=== PATIENT | female | born 2000 | race Caucasian/White ===

== ENCOUNTER 2020-05-05 19:15 | Emergency (ER) | payer MEDICAID, SELFPAY ==
[2020-05-05 19:16] VITALS: BP 114/78; PULSE 92; RESP 16; TEMP 36.4; O2SAT 100; BMI 18.8
[2020-05-05 20:12] LABS: Glucose Urine UA NEG (NEG); Leukocyte Esterase Urine NEG (NEG); Nitrite Urine NEG (NEG); PH 5.5 (5.0-8.0); Specific Gravity - Urine >= 1.030 (1.005-1.025); Urine Blood NEG (NEG); Urine Ketones 5 MG/DL (NEG); Urine Protein NEG (NEG-TRACE)
[2020-05-05 20:15] LABS: Appearance Urine CLEAR; Color Urine YELLOW
[2020-05-05 20:16] LABS: UPreg QC Valid YES; Urine Pregnancy NEGATIVE (NEGATIVE)
[2020-05-05 20:44] LABS: Amphetamine Screen Urine Not Detected (Not Detect); Barbiturates, Urine Not Detected (Not Detect); Benzodiazepines Screen Urine Not Detected (Not Detect); Cannabinoid Screen Urine POSITIVE (Not Detect); Cocaine Screen Urine Not Detected (Not Detect); Opiate Screen Urine Not Detected (Not Detect); Phencyclidine Screen Urine Not Detected (Not Detect)
--- NOTE | 2020-05-05 21:19 | ED_ITS ---
HPI - Abdominal Pain General Chief Complaint: Abdominal Pain Stated Complaint: ABD PAIN Time Seen by Provider: 05/05/20 21:12 Source: patient Mode of arrival: ambulatory Limitations: no limitations History of Present Illness HPI narrative: patient with no significant past medical history no prior GI evaluation been complaining of upper abdominal epigastric pain for last 1 month patient smokes lot of marijuana but she is doing this for long time and does feel nauseous and vomit sometimes pain does not radiate to any place patient never been evaluated for this pain before MD elicited complaint: abdominal pain Pertinent past history: none Onset (ago): week(s) (4) Pain Consistency: intermittent Location: epigastric Severity: moderate Quality: burning Radiation: none Migration to: no migration Exacerbating factors: eating Relieving factors: nothing Associated symptoms: nausea and vomiting Related Data Previous Rx's Medication Instructions Recorded omeprazole magnesium [Prilosec OTC] 20 mg PO DAILY #30 tab 05/05/20 ondansetron 4 mg PO Q6-8H PRN #7 tab 05/05/20 Allergies Allergy/AdvReac Type Severity Reaction Status Date / Time Penicillins [PENICILLINS] Allergy Unknown UNKNOWN Verified 05/05/20 19:21 Review of Systems Review of Systems REVIEW OF SYSTEMS: Pertinent positives and negatives are stated above in the history. GEN: no fevers, chills, fatigue HEENT: no nasal congestion, sore throat, ear pain NEURO: no headache, dizziness, focal weakness PULM: no cough, shortness of breath CV: no chest pain, palpitations, LE edema ABD: no vomiting, diarrhea : no dysuria, urgency, frequency SKIN: no rash ROS otherwise negative x 10 Physical Exam Vital Signs: Vital Signs: Last Vital Signs Temp 98 F 05/05/20 22:27 Pulse 68 05/05/20 22:27 Resp 16 05/05/20 22:27 BP 115/74 05/05/20 22:27 Pulse Ox 98 05/05/20 22:27 Body Mass Index 18.8 Appearance: Alert. Oriented X3. No acute distress. Eyes: Pupils equal, round and reactive to light. ENT: Pharynx normal. Neck: Normal inspection. Neck supple. CVS: Normal heart rate and rhythm. Pulses normal. Respiratory: No respiratory distress. Breath sounds normal. Abdomen: Soft and mild tenderness epigastric area no right upper quadrant tenderness no guarding no mass bowel sounds are present. Skin: Skin warm and dry. Normal skin color. Normal skin turgor. Extremities: No lower extremity edema. Good range of movement Neuro: Oriented X 3. No motor deficit. No sensory deficit. MDM - Abdominal Pain MDM Narrative Medical decision making narrative: patient feeling better now after IV fluids IV Pepcid and Maalox able to take p.o. fluids workup is negative for any significant pathology, LFTs are normal lipase normal. discharge the patient home Differential Diagnosis Differential diagnosis: Likely gastritis Medical Records Attestation: I reviewed the patient's medical records. Lab Data Attestation: I reviewed the patient's lab results. Result diagrams: 05/05/20 22:09 05/05/20 22:09 Labs: Lab Results 05/05/20 05/05/20 05/05/20 Range/Units 19:44 19:44 22:09 WBC 11.8 H (4.8-10.8) X10*3/uL RBC 4.71 (4.20-5.50) X10*6/uL Hgb 14.7 (12.0-16.0) g/dl Hct 43.6 (37-47) % MCV 92.6 (80-98) fL MCH 31.2 (27.0-33.0) pg MCHC 33.7 (31.0-35.0) g/dl RDW 11.8 (11.0-16.0) % Plt Count 249 (160-400) X10*3/uL MPV 10.6 (9.4-12.3) fL Immature Gran % (Auto) 0.3 (0.0-0.4) % Neut % (Auto) 67.8 (45-73) % Lymph % (Auto) 24.2 (20-40) % [place] % (Auto) 7.0 (2-11) % Eos % (Auto) 0.5 (0-4) % Baso % (Auto) 0.2 (0-2) % Lymph # (Auto) 2.9 (1.2-4.9) X10*3/uL [place] # (Auto) 0.8 (0.1-1.2) X10*3/uL Eos # (Auto) 0.1 (0.0-0.4) X10*3/uL Baso # (Auto) 0.0 (0.0-0.2) X10*3/uL Abs Immat Gran (auto) 0.04 H (0.00-0.03) X10*3/uL Absolute Neuts (auto) 8.0 (2.0-8.3) X10*3/uL Absolute Nucleated RBC 0.000 (0.0-0.012) X10*3/uL Nucleated RBC % (auto) 0.0 (0.0-0.2) /100WBC Sodium (135-145) mmol/L Potassium (3.3-5.1) mmol/l Chloride (96-108) mmol/L Carbon Dioxide (22-29) mmol/L Anion Gap (12-20) BUN (9-16) mg/dL Creatinine (0.5-1.4) mg/dL Estim Creat Clear Calc Estimated GFR Random Glucose (60-115) mg/dL Calcium (8.4-10.2) mg/dL Total Bilirubin (0.0-1.0) mg/dL Direct Bilirubin (0.0-0.5) mg/dL AST (5-31) U/L ALT (0-31) U/L Alkaline Phosphatase (39-117) U/L Total Protein (6.5-8.0) g/dL Albumin (3.5-5.0) g/dL Lipase (8-78) U/L Urine Color YELLOW Urine Appearance CLEAR Urine pH 5.5 (5.0-8.0) Ur Specific [place] >= 1.030 H (1.005-1.025) Urine Protein NEG (NEG-TRACE) MG/DL Urine Glucose (UA) NEG (NEG) MG/DL Urine Ketones 5 (NEG) MG/DL Urine Blood NEG (NEG) Urine Nitrite NEG (NEG) Ur Leukocyte Esterase NEG (NEG) Urine Test NEGATIVE (NEGATIVE) Urine Opiates Screen Not Detected (Not Detect) Ur Barbiturates Screen Not Detected (Not Detect) Ur Phencyclidine Scrn Not Detected (Not Detect) Ur Amphetamines Screen Not Detected (Not Detect) U Benzodiazepines Scrn Not Detected (Not Detect) Urine Cocaine Screen Not Detected (Not Detect) U Marijuana (THC) Screen POSITIVE H (Not Detect) 05/05/20 Range/Units 22:09 WBC (4.8-10.8) X10*3/uL RBC (4.20-5.50) X10*6/uL Hgb (12.0-16.0) g/dl Hct (37-47) % MCV (80-98) fL MCH (27.0-33.0) pg MCHC (31.0-35.0) g/dl RDW (11.0-16.0) % Plt Count (160-400) X10*3/uL MPV (9.4-12.3) fL Immature Gran % (Auto) (0.0-0.4) % Neut % (Auto) (45-73) % Lymph % (Auto) (20-40) % [place] % (Auto) (2-11) % Eos % (Auto) (0-4) % Baso % (Auto) (0-2) % Lymph # (Auto) (1.2-4.9) X10*3/uL [place] # (Auto) (0.1-1.2) X10*3/uL Eos # (Auto) (0.0-0.4) X10*3/uL Baso # (Auto) (0.0-0.2) X10*3/uL Abs Immat Gran (auto) (0.00-0.03) X10*3/uL Absolute Neuts (auto) (2.0-8.3) X10*3/uL Absolute Nucleated RBC (0.0-0.012) X10*3/uL Nucleated RBC % (auto) (0.0-0.2) /100WBC Sodium 140 (135-145) mmol/L Potassium 4.1 (3.3-5.1) mmol/l Chloride 103 (96-108) mmol/L Carbon Dioxide 25 (22-29) mmol/L Anion Gap 16 (12-20) BUN 12 (9-16) mg/dL Creatinine 0.75 (0.5-1.4) mg/dL Estim Creat Clear Calc 102.8 Estimated GFR > 60 Random Glucose 77 (60-115) mg/dL Calcium 9.0 (8.4-10.2) mg/dL Total Bilirubin 0.7 (0.0-1.0) mg/dL Direct Bilirubin 0.3 (0.0-0.5) mg/dL AST 16 (5-31) U/L ALT 9 (0-31) U/L Alkaline Phosphatase 62 (39-117) U/L Total Protein 7.1 (6.5-8.0) g/dL Albumin 4.5 (3.5-5.0) g/dL Lipase 25 (8-78) U/L Urine Color Urine Appearance Urine pH (5.0-8.0) Ur Specific [place] (1.005-1.025) Urine Protein (NEG-TRACE) MG/DL Urine Glucose (UA) (NEG) MG/DL Urine Ketones (NEG) MG/DL Urine Blood (NEG) Urine Nitrite (NEG) Ur Leukocyte Esterase (NEG) Urine Test (NEGATIVE) Urine Opiates Screen (Not Detect) Ur Barbiturates Screen (Not Detect) Ur Phencyclidine Scrn (Not Detect) Ur Amphetamines Screen (Not Detect) U Benzodiazepines Scrn (Not Detect) Urine Cocaine Screen (Not Detect) U Marijuana (THC) Screen (Not Detect) Discharge Plan Discharge Clinical Impression: Gastritis Qualifiers: Gastritis type: unspecified gastritis Chronicity: acute Gastritis bleeding: without bleeding Qualified Code(s): K29.00 - Acute gastritis without bleeding Patient Disposition: Home, Self-Care Instructions: Gastritis (ED) Additional Instructions: stop smoking marijuana. Take medication as prescribed for nausea and stomach inflammation Prescriptions: New omeprazole magnesium [Prilosec OTC] 20 mg tablet,delayed release (DR/EC) 20 mg PO DAILY Qty: 30 RF: 0 ondansetron 4 mg tablet,disintegrating 4 mg PO Q6-8H PRN (Reason: nausea and vomiting) Qty: 7 RF: 0 PMFSH Past Medical History Medical History No known health problems Social History Social History Alcohol intake: never Smoking Status: Never smoker Use of substances other than those prescribed or required for medical reasons: No Advance Directives: No Advance Directives Information Provided: Yes
[2020-05-05] MEDS: Famotidine/PF 20 MG/2 ML VIAL IVPUSH (22:11)
[2020-05-05] MEDS: Magnesium Hydrox/Alum Hydrox 30 ML ORAL.SUSP PO (22:11)
[2020-05-05] MEDS: 0.9 % Sodium Chloride 1,000 ML 999 ML IVCONT (22:11)
[2020-05-05] MEDS: ondansetron HCL 4 MG/2 ML VIAL IVPUSH (22:11)
[2020-05-05 22:16] LABS: Basophils Percent Auto 0.2 % (0-2); Eosinophils Absolute Auto 0.1 X10*3/uL (0.0-0.4); Eosinophils Percent Auto 0.5 % (0-4); Hematocrit 43.6 % (37-47); Hemoglobin 14.7 g/dl (12.0-16.0); Imm Gran Abs Auto 0.04 X10*3/uL (0.00-0.03); Imm Gran Pct Auto 0.3 % (0.0-0.4); Lymphocytes Absolute Auto 2.9 X10*3/uL (1.2-4.9); Lymphocytes Percent Auto 24.2 % (20-40); MANUAL DIFF FLAG NO; Mean Corpuscular HGB Conc 33.7 g/dl (31.0-35.0); Mean Corpuscular Hemoglobin 31.2 pg (27.0-33.0); Mean Corpuscular Volume 92.6 fL (80-98); Mean Platelet Volume 10.6 fL (9.4-12.3); Monocytes Absolute Auto 0.8 X10*3/uL (0.1-1.2); Neutrophils Percent Auto 67.8 % (45-73); Platelet Count 249 X10*3/uL (160-400); Red Blood Count 4.71 X10*6/uL (4.20-5.50); Red Cell Distribution Width 11.8 % (11.0-16.0); White Blood Count 11.8 X10*3/uL (4.8-10.8)
[2020-05-05 22:27] VITALS: BP 115/74; PULSE 68; RESP 16; TEMP 36.6; O2SAT 98
[2020-05-05 22:48] LABS: Alanine Aminotransferase 9 U/L (0-31); Albumin Level 4.5 g/dL (3.5-5.0); Alkaline Phosphatase 62 U/L (39-117); Anion Gap 16 (12-20); Aspartate Amino Transferase 16 U/L (5-31); Bilirubin Direct 0.3 mg/dL (0.0-0.5); Bilirubin Total 0.7 mg/dL (0.0-1.0); Blood Urea Nitrogen 12 mg/dL (9-16); Carbon Dioxide 25 mmol/L (22-29); Chloride 103 mmol/L (96-108); Creatinine Clr Calc Pharmacy 102.8; Estimated Glomerular Filt Rate > 60; Glucose Random 77 mg/dL (60-115); Lipase 25 U/L (8-78); Potassium 4.1 mmol/l (3.3-5.1); Sodium 140 mmol/L (135-145); Total Protein 7.1 g/dL (6.5-8.0)
== END 2020-05-05 23:47 | disposition home or self-care (01) ==
PROVIDERS: Emergency Provider Internal Medicine
DX: K29.00 Acute gastritis without bleeding (principal); Z79.899 Other long term (current) drug therapy
CPT/HCPCS: 36415; 80048; 80076; 80307; 81003; 81025; 83690; 85025; 96361; 96374; 96375; 99284; J2405

== ENCOUNTER 2021-08-01 12:10 | Emergency (ER) | payer MEDICAID, SELFPAY ==
[2021-08-01 14:35] VITALS: BP 157/58; PULSE 62; RESP 16; TEMP 36.1; O2SAT 100; BMI 20.3
[2021-08-01 14:54] LABS: MANUAL DIFF FLAG NO
[2021-08-01 14:58] LABS: Basophils Percent Auto 0.2 % (0-2); Eosinophils Absolute Auto 0.1 X10*3/uL (0.0-0.4); Eosinophils Percent Auto 0.6 % (0-4); Hematocrit 43.7 % (37.0-47.0); Hemoglobin 14.8 g/dl (12.0-16.0); Imm Gran Abs Auto 0.03 X10*3/uL (0.00-0.03); Imm Gran Pct Auto 0.2 % (0.0-0.4); Lymphocytes Absolute Auto 2.6 X10*3/uL (1.2-4.9); Lymphocytes Percent Auto 20.4 % (20-40); Mean Corpuscular HGB Conc 33.9 g/dl (31.0-35.0); Mean Corpuscular Hemoglobin 31.2 pg (27.0-33.0); Mean Corpuscular Volume 92.2 fL (80.0-98.0); Mean Platelet Volume 10.6 fL (9.4-12.3); Monocytes Percent Auto 7.8 % (2-11); Neutrophils Percent Auto 70.8 % (45-73); Platelet Count 249 X10*3/uL (160-400); Red Blood Count 4.74 X10*6/uL (4.20-5.50); Red Cell Distribution Width 11.9 % (11.0-16.0); White Blood Count 12.7 X10*3/uL (4.8-10.8)
[2021-08-01 15:02] LABS: Appearance Urine CLOUDY; Glucose Urine UA NEG (NEG); Leukocyte Esterase Urine TRACE (NEG); Nitrite Urine POS (NEG); PH 6.5 (5.0-8.0); Specific Gravity - Urine 1.025 (1.005-1.025); UACC Culture Trigger YES; Urine Blood 3+ (NEG); Urine Ketones 5 MG/DL (NEG); Urine Protein 2+ MG/DL (NEG-TRACE)
[2021-08-01 15:03] LABS: Color Urine AMBER
[2021-08-01 15:04] LABS: UPreg QC Valid YES; Urine Pregnancy NEGATIVE (NEGATIVE)
[2021-08-01 15:07] LABS: Anion Gap 11 (12-20); Blood Urea Nitrogen 9 mg/dL (9-16); Calcium 9.3 mg/dL (8.4-10.2); Carbon Dioxide 29 mmol/L (22-29); Chloride 105 mmol/L (96-108); Estimated Glomerular Filt Rate > 60; Glucose Random 91 mg/dL (60-115); Potassium 4.3 mmol/L (3.3-5.1); Sodium 141 mmol/L (135-145)
[2021-08-01 15:09] LABS: Bacteria Urine TRACE /LPF; Mucus Urine 2+ /LPF; RBC Urine TNTC /HPF (0); Squamous Epithelial Cell Urine 1+ /LPF
[2021-08-01 16:08] VITALS: BP 112/73; PULSE 52; RESP 16; TEMP 37; O2SAT 99
--- NOTE | 2021-08-01 16:29 | ED.ABDPAIN ---
HPI - Abdominal Pain General Chief Complaint: Abdominal Pain Stated Complaint: nausea/cramps/dizziness Time Seen by Provider: 08/01/21 14:54 Source: patient History of Present Illness HPI narrative: Patient with lower abdominal pain which is concomitant with her. . She states she has had similar episodes in the past but typically not as bad. Today with severe made her nauseous. Improving now spontaneously. She also has a history of gastritis and occasionally gets epigastric pain is difficulty eating. 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 She takes no medications. She does smoke marijuana daily. Menses Starting today. No dysuria No flank pain Related Data Previous Rx's Medication Instructions Recorded omeprazole magnesium 20 mg 20 mg PO DAILY #30 tab 05/05/20 tablet,delayed release (Prilosec OTC) ondansetron 4 mg disintegrating 4 mg PO Q6-8H PRN #7 tab 05/05/20 tablet omeprazole 20 mg capsule,delayed 20 mg PO DAILY #30 cap 08/01/21 release Allergies Allergy/AdvReac Type Severity Reaction Status Date / Time Penicillins [PENICILLINS] Allergy Unknown UNKNOWN Verified 05/05/20 19:21 Review of Systems Comments: No fevers or chills Comments: No chest pain Comments: No cough or dyspnea Comments: Lower abdominal pain mostly. Some epigastric discomfort which is chronic Comments: No leg pain Comments: No rash Comments: No weakness PMFSH Past Medical History Medical History No known health problems Social History Social History Alcohol intake: never Advance Directives: No Advance Directives Information Provided: No Patient : No Physical Exam ED Vital Signs: Vital Signs - 24 hr 08/01/21 14:35 08/01/21 16:08 Temperature 97 F 98.6 F Pulse Rate 62 52 Respiratory Rate 16 16 Blood Pressure 157/58 H 112/73 Pulse Oximetry 100 99 BMI result Body Mass Index 20.3 Const Other: Awake alert in no acute distress Resp Other: Clear and equal bilaterally without wheezes rales or rhonchi Cardio Other: Regular rate and rhythm without murmurs rubs or gallops GI Other: Soft. Nondistended. Normal bowel sounds. Tenderness across the low abdomen. Mostly midline. No lateralizing lower abdominal tenderness. Mild epigastric tenderness as well. No guarding rebound Course Course Course Narrative: Patient with low abdominal pain. Dysmenorrhea most likely diagnosis. There are no lateralizing sounds and I do not think she needed ultrasound. Will have her follow-up with OBGYN. She also likely has gastritis. Exacerbated by frequent ibuprofen use for her menstrual cramps. Will start on a PPI and have her follow-up with Gastroenterology. MDM - Abdominal Pain Lab Data Result diagrams: 08/01/21 14:44 08/01/21 14:44 Labs: Lab Results 08/01/21 08/01/21 08/01/21 Range/Units 14:44 14:44 14:49 WBC 12.7 H (4.8-10.8) X10*3/uL RBC 4.74 (4.20-5.50) X10*6/uL Hgb 14.8 (12.0-16.0) g/dl Hct 43.7 (37.0-47.0) % MCV 92.2 (80.0-98.0) fL MCH 31.2 (27.0-33.0) pg MCHC 33.9 (31.0-35.0) g/dl RDW 11.9 (11.0-16.0) % Plt Count 249 (160-400) X10*3/uL MPV 10.6 (9.4-12.3) fL Immature Gran % (Auto) 0.2 (0.0-0.4) % Neut % (Auto) 70.8 (45-73) % Lymph % (Auto) 20.4 (20-40) % [place] % (Auto) 7.8 (2-11) % Eos % (Auto) 0.6 (0-4) % Baso % (Auto) 0.2 (0-2) % Lymph # (Auto) 2.6 (1.2-4.9) X10*3/uL [place] # (Auto) 1.0 (0.1-1.2) X10*3/uL Eos # (Auto) 0.1 (0.0-0.4) X10*3/uL Baso # (Auto) 0.0 (0.0-0.2) X10*3/uL Abs Immat Gran (auto) 0.03 (0.00-0.03) X10*3/uL Absolute Neuts (auto) 9.0 H (2.0-8.3) x10*3/uL Absolute Nucleated RBC 0.000 (0.0-0.012) X10*3/uL Nucleated RBC % (auto) 0.0 (0.0-0.2) /100WBC Sodium 141 (135-145) mmol/L Potassium 4.3 (3.3-5.1) mmol/L Chloride 105 (96-108) mmol/L Carbon Dioxide 29 (22-29) mmol/L Anion Gap 11 L (12-20) BUN 9 (9-16) mg/dL Creatinine 0.76 (0.5-1.4) mg/dL Estim Creat Clear Calc 109.0 Estimated GFR > 60 Random Glucose 91 (60-115) mg/dL Calcium 9.3 (8.4-10.2) mg/dL Urine Color GAYE Urine Appearance CLOUDY Urine pH 6.5 (5.0-8.0) Ur Specific [place] 1.025 (1.005-1.025) Urine Protein 2+ H (NEG-TRACE) MG/DL Urine Glucose (UA) NEG (NEG) MG/DL Urine Ketones 5 (NEG) MG/DL Urine Blood 3+ H (NEG) Urine Nitrite POS H (NEG) Ur Leukocyte Esterase TRACE H (NEG) Urine RBC TNTC H (0) /HPF Urine WBC 5-9 H (0-4) /HPF Ur Squamous Epith Cells 1+ /LPF Urine Bacteria TRACE /LPF Urine Mucus 2+ /LPF Urine Test (NEGATIVE) 08/01/21 Range/Units 14:49 WBC (4.8-10.8) X10*3/uL RBC (4.20-5.50) X10*6/uL Hgb (12.0-16.0) g/dl Hct (37.0-47.0) % MCV (80.0-98.0) fL MCH (27.0-33.0) pg MCHC (31.0-35.0) g/dl RDW (11.0-16.0) % Plt Count (160-400) X10*3/uL MPV (9.4-12.3) fL Immature Gran % (Auto) (0.0-0.4) % Neut % (Auto) (45-73) % Lymph % (Auto) (20-40) % [place] % (Auto) (2-11) % Eos % (Auto) (0-4) % Baso % (Auto) (0-2) % Lymph # (Auto) (1.2-4.9) X10*3/uL [place] # (Auto) (0.1-1.2) X10*3/uL Eos # (Auto) (0.0-0.4) X10*3/uL Baso # (Auto) (0.0-0.2) X10*3/uL Abs Immat Gran (auto) (0.00-0.03) X10*3/uL Absolute Neuts (auto) (2.0-8.3) x10*3/uL Absolute Nucleated RBC (0.0-0.012) X10*3/uL Nucleated RBC % (auto) (0.0-0.2) /100WBC Sodium (135-145) mmol/L Potassium (3.3-5.1) mmol/L Chloride (96-108) mmol/L Carbon Dioxide (22-29) mmol/L Anion Gap (12-20) BUN (9-16) mg/dL Creatinine (0.5-1.4) mg/dL Estim Creat Clear Calc Estimated GFR Random Glucose (60-115) mg/dL Calcium (8.4-10.2) mg/dL Urine Color Urine Appearance Urine pH (5.0-8.0) Ur Specific [place] (1.005-1.025) Urine Protein (NEG-TRACE) MG/DL Urine Glucose (UA) (NEG) MG/DL Urine Ketones (NEG) MG/DL Urine Blood (NEG) Urine Nitrite (NEG) Ur Leukocyte Esterase (NEG) Urine RBC (0) /HPF Urine WBC (0-4) /HPF Ur Squamous Epith Cells /LPF Urine Bacteria /LPF Urine Mucus /LPF Urine Test NEGATIVE (NEGATIVE) Discharge Plan Discharge Clinical Impression: Gastritis, Dysmenorrhea Patient Disposition: Home, Self-Care Instructions: Dysmenorrhea (ED), Gastritis (ED) Prescriptions: New omeprazole 20 mg capsule,delayed release(DR/EC) 20 mg PO DAILY Qty: 30 0RF No Action omeprazole magnesium [Prilosec OTC] 20 mg tablet,delayed release (DR/EC) 20 mg PO DAILY Qty: 30 0RF ondansetron 4 mg tablet,disintegrating 4 mg PO Q6-8H PRN (Reason: nausea and vomiting) Qty: 7 0RF Referrals: Pancho Berumen [Physician] - 2 days Mikel Oates MD [Physician] - 2 days
== END 2021-08-01 16:57 | disposition home or self-care (01) ==
PROVIDERS: Emergency Provider Emergency Medicine
DX: K29.70 Gastritis, unspecified, without bleeding (principal); N94.6 Dysmenorrhea, unspecified; F12.90 Cannabis use, unspecified, uncomplicated
CPT/HCPCS: 36415; 80048; 81001; 81003; 81025; 85025; 87086; 99283

== ENCOUNTER 2021-11-18 20:55 | Emergency (ER) | payer MEDICAID, SELFPAY ==
--- NOTE | ~2021-11-18 | CT_ITS ---
EXAMINATION: CT ABDOMEN AND PELVIS WITHOUT CONTRAST CLINICAL INFORMATION: Abdominal pain radiating to both flanks. COMPARISON: None TECHNIQUE: Multidetector volumetric imaging was performed from the superior aspect of the liver through the pubic symphysis. Sagittal and coronal reformatted images were obtained on the technologist's workstation. This CT examination was performed using dose optimization techniques as appropriate, variously including the following: *Automated exposure control. *Adjustment of mA and/or kV according to patient size (this includes techniques or standardized protocols for targeted exams where dose is matched to indication/reason for exam; i.e. extremities or head). *Use of iterative reconstruction technique. DLP: 391 mGy-cm FINDINGS: LUNG BASES: No focal consolidation or pleural effusion. LIVER, GALLBLADDER, AND BILIARY TREE: Limited noncontrast evaluation of the liver without significant abnormality. Normal appearance of the gallbladder. No biliary ductal dilatation. PANCREAS: Limited noncontrast examination without significant abnormality. SPLEEN: Limited noncontrast examination within normal limits. ADRENAL GLANDS: No adrenal lesion. KIDNEYS AND URETERS: No hydronephrosis or nephrolithiasis. No perinephric fat stranding. BLADDER: Underdistended limiting its evaluation. GASTROINTESTINAL TRACT: The stomach and the small bowel are nondilated. Normal appendix (7:21). No significant pericolonic inflammatory changes to suspect acute diverticulitis or colitis. No bowel obstruction. ABDOMINAL WALL: No significant hernia is appreciated. LYMPH NODES: Evaluation of lymph nodes is limited in the absence of intravenous contrast and paucity of intra-abdominal fat. Accounting for these limitations, no bulky lymphadenopathy is identified. Prominent sub-6 mm short axis right lower quadrant mesenteric lymph nodes are indeterminate. VASCULAR: Unremarkable. PELVIC VISCERA: The uterus and adnexa are not entirely well delineated in the absence of intravenous contrast. No pelvic masses are seen. There is a small amount of free fluid layering in the cul-de-sac, which is likely physiologic. OSSEOUS STRUCTURES: No acute or aggressive-appearing osseous abnormalities. CT/CT abdomen pelvis wo con IMPRESSION: No significant abnormality to explain the patient's symptoms. No evidence of nephrolithiasis or hydronephrosis.
[2021-11-18 21:27] VITALS: BP 118/64; PULSE 73; RESP 18; TEMP 37.1; O2SAT 100; BMI 21.0
[2021-11-18 21:42] LABS: MANUAL DIFF FLAG NO
[2021-11-18 21:46] LABS: Basophils Percent Auto 0.1 % (0-2); Eosinophils Absolute Auto 0.1 X10*3/uL (0.0-0.4); Eosinophils Percent Auto 0.9 % (0-4); Hematocrit 40.2 % (37.0-47.0); Hemoglobin 13.6 g/dl (12.0-16.0); Imm Gran Abs Auto 0.04 X10*3/uL (0.00-0.03); Imm Gran Pct Auto 0.4 % (0.0-0.4); Lymphocytes Absolute Auto 2.5 X10*3/uL (1.2-4.9); Mean Corpuscular HGB Conc 33.8 g/dl (31.0-35.0); Mean Corpuscular Hemoglobin 30.5 pg (27.0-33.0); Mean Corpuscular Volume 90.1 fL (80.0-98.0); Mean Platelet Volume 10.6 fL (9.4-12.3); Monocytes Absolute Auto 0.9 X10*3/uL (0.1-1.2); Monocytes Percent Auto 8.9 % (2-11); Neutrophils Absolute Auto 6.8 x10*3/uL (2.0-8.3); Neutrophils Percent Auto 65.7 % (45-73); Platelet Count 216 X10*3/uL (160-400); Red Blood Count 4.46 X10*6/uL (4.20-5.50); Red Cell Distribution Width 12.5 % (11.0-16.0); White Blood Count 10.3 X10*3/uL (4.8-10.8)
[2021-11-18 22:02] LABS: Appearance Urine HAZY; Color Urine YELLOW; Glucose Urine UA NEG (NEG); Leukocyte Esterase Urine NEG (NEG); Nitrite Urine NEG (NEG); Urine Blood NEG (NEG); Urine Ketones NEG (NEG); Urine Protein NEG (NEG-TRACE)
[2021-11-18 22:03] LABS: COVID-19 Test Negative (Negative)
[2021-11-18 22:04] LABS: UPreg QC Valid YES; Urine Pregnancy NEGATIVE (NEGATIVE)
--- NOTE | 2021-11-18 22:04 | ED_ITS ---
HPI - Abdominal Pain General Chief Complaint: Abdominal Pain Stated Complaint: stomach pain Time Seen by Provider: 11/18/21 22:03 Source: patient Mode of arrival: ambulatory Limitations: no limitations History of Present Illness HPI narrative: 21-year-old history presents the emergency department complaints of epigastric pain x3 days worsening. Patient tells me that her epigastric pain is severe, intermittent, she feels like there is a ball in her stomach , pain sometimes radiates to bilateral flanks.. He tells me it is also associated with nausea and vomiting, she reports 1 episode of vomiting today. She tells me that she has had no appetite therefore she has not been eating much. She denies any prev ious abdominal surgeries. No sick contacts. Patient tells me she does not think she is however she is not on control. She denies weakness, headache, fevers, chills, constipation, changes in urination, vaginal bleeding, chest pain, shortness of breath. MD elicited complaint: abdominal pain Pertinent past history: none Onset (ago): day(s) (3) Pain Consistency: constant Location: epigastric Severity: severe Quality: sharp and burning Radiation: none Migration to: no migration Exacerbating factors: nothing Relieving factors: nothing Associated symptoms: nausea and vomiting Related Data Previous Rx's Medication Instructions Recorded omeprazole magnesium 20 mg 20 mg PO DAILY #30 tabs 05/05/20 tablet,delayed release (Prilosec OTC) ondansetron 4 mg disintegrating 4 mg PO Q6-8H PRN nausea and 05/05/20 tablet vomiting #7 tabs omeprazole 20 mg capsule,delayed 20 mg PO DAILY #30 caps 08/01/21 release omeprazole 10 mg capsule,delayed 10 mg PO DAILY #14 caps 11/19/21 release ondansetron 4 mg disintegrating 4 mg PO ONCE PRN nausea and 11/19/21 tablet vomiting #10 tabs Allergies Allergy/AdvReac Type Severity Reaction Status Date / Time Penicillins [PENICILLINS] Allergy Unknown UNKNOWN Verified 05/05/20 19:21 Review of Systems Review of Systems Constitutional : No Weight loss, No Fever, No Chills, No Fatigue, No Malaise ENT/Mouth : No sore throat, No Rhinorrhea Eyes: No Eye Pain, No Swelling, No Redness Cardiovascular : No Chest Pain, No SOB, No Dyspnea on Exertion, No Orthopnea, No Edema, No Palpitations Respiratory : No Cough, No Sputum, No Wheezing Gastrointestinal : + Nausea, + Vomiting, No Diarrhea, No Constipation, + abdominal Pain, No Hematochezia, No Melena Genitourinary : No Dysuria, No Urinary Frequency, No Hematuria, Musculoskeletal : No joint pain, No Myalgias, No Joint Swelling Skin : No Skin Lesions, No rash Neuro : No Weakness, No Numbness, No Dizziness, No Headache Psych : No Anxiety/Panic, No Depression All other systems reviewed and are negative Yes all other systems are reviewed and are negative [facility] Past Medical History Attestation statement: The following information was validated with the patient. Source: old records reviewed and nursing notes reviewed Medical History No known health problems Social History Social History Alcohol intake: never Advance Directives: No Advance Directives Information Provided: Yes Physical Exam ED Vital Signs: Vital Signs - 24 hr 11/18/21 21:27 11/18/21 22:45 11/18/21 23:19 Temperature 98.7 F Pulse Rate 73 73 63 Respiratory Rate 18 16 16 Blood Pressure 118/64 92/61 108/61 Pulse Oximetry 100 99 98 Oxygen Delivery Method Room Air Room Air Room Air BMI result Body Mass Index 21.0 VSS Appearance: Alert.? Oriented X3.? No acute distress.? Head: Normocephalic, atraumatic, no step-offs or deformities Eyes: Pupils equal, round and reactive to light.? ENT: Pharynx normal.? Neck: Normal inspection.? Neck supple.? CVS: Normal heart rate and rhythm.? Pulses normal.? Respiratory: No respiratory distress.? Breath sounds normal.? Abdomen: Soft and + tender to epigastric region.? Skin: Skin warm and dry.? Normal skin color.? Normal skin turgor.? Extremities: No lower extremity edema.? No calf ttp. 5/5 strength to bilateral upper and lower extremities Back: No midline tenderness, no C-spine tenderness, full range of motion, no CVA tenderness bilaterally Neuro: Oriented X 3.? No motor deficit.? No sensory deficit. CN 2-12 intact Course Course Course Narrative: This patient was evaluated during a time of global shortage of iodinated contrast media. Based on guidance from the [employer], best practices, and local institutional approaches an alternative path for evaluating and managing the patient may have been employed in order to provide optimal care during this shortage. The current situation has been discussed with the patient. Reevaluation(s) Reevaluation #1: CBC wnl, chemistry with no acute Electrolyte abnormalities requiring intervention. Lipase normal unlikely pancreatitis. Urine clean. negative.Covid negative. Imaging pending Time: 22:30 Reevaluation #2: CT of the abdomen and pelvis and no significant abnormality to explain the patient's symptoms. No evidence of nephrolithiasis or hydronephrosis. Appendix appears normal. No signs of diverticulitis or colitis. No signs of bowel obstruction. At this time likely diagnosis is gastritis. Patient reports improvement after GI cocktail. Patient will be discharged home with omeprazole. At this time I advised patient to return with new or worsening symptoms, educated her on worrisome signs and symptoms and when to return. Advised her to follow-up with GI if pain does not improve. Comfortable discharge home Time: 00:02 MDM - Abdominal Pain MDM Narrative Medical decision making narrative: 220 21 yo f presents w/ epigastric pain w intermittent radiation to b/l flanks, nausea, vomiting, anorexia X3 days PE w/ epigastric tenderness. RRR/ Lung clear. Neuro non focal. Vitals stabe Unlikley pylonephritis, appendicitis, cholecysitits, pancreatitis. Likley gastritis. Plan- labs, urine, ct abd and pelvis Medical Records Attestation: I reviewed the patient's medical records. Lab Data Attestation: I reviewed the patient's lab results. Result diagrams: 11/18/21 21:32 11/18/21 21:32 Labs: Lab Results 11/18/21 11/18/21 11/18/21 Range/Units 21:32 21:32 21:32 WBC 10.3 (4.8-10.8) X10*3/uL RBC 4.46 (4.20-5.50) X10*6/uL Hgb 13.6 (12.0-16.0) g/dl Hct 40.2 (37.0-47.0) % MCV 90.1 (80.0-98.0) fL MCH 30.5 (27.0-33.0) pg MCHC 33.8 (31.0-35.0) g/dl RDW 12.5 (11.0-16.0) % Plt Count 216 (160-400) X10*3/uL MPV 10.6 (9.4-12.3) fL Immature Gran % (Auto) 0.4 (0.0-0.4) % Neut % (Auto) 65.7 (45-73) % Lymph % (Auto) 24.0 (20-40) % [place] % (Auto) 8.9 (2-11) % Eos % (Auto) 0.9 (0-4) % Baso % (Auto) 0.1 (0-2) % Lymph # (Auto) 2.5 (1.2-4.9) X10*3/uL [place] # (Auto) 0.9 (0.1-1.2) X10*3/uL Eos # (Auto) 0.1 (0.0-0.4) X10*3/uL Baso # (Auto) 0.0 (0.0-0.2) X10*3/uL Abs Immat Gran (auto) 0.04 H (0.00-0.03) X10*3/uL Absolute Neuts (auto) 6.8 (2.0-8.3) x10*3/uL Absolute Nucleated RBC 0.000 (0.0-0.012) X10*3/uL Nucleated RBC % (auto) 0.0 (0.0-0.2) /100WBC Sodium 137 (135-145) mmol/L Potassium 3.8 (3.3-5.1) mmol/L Chloride 104 (96-108) mmol/L Carbon Dioxide 27 (22-29) mmol/L Anion Gap 10 L (12-20) BUN 9 (9-16) mg/dL Creatinine 0.85 (0.5-1.4) mg/dL Estim Creat Clear Calc 100.0 Estimated GFR > 60 Random Glucose 65 (60-115) mg/dL Calcium 9.2 (8.4-10.2) mg/dL Total Bilirubin 0.5 (0.0-1.0) mg/dL Direct Bilirubin 0.2 (0.0-0.5) mg/dL AST 14 (5-31) U/L ALT 9 (0-31) U/L Alkaline Phosphatase 54 (39-117) U/L Total Protein 6.9 (6.5-8.0) g/dL Albumin 4.2 (3.5-5.0) g/dL Lipase 49 (8-78) U/L Urine Color Urine Appearance Urine pH (5.0-8.0) Ur Specific [place] (1.005-1.025) Urine Protein (NEG-TRACE) MG/DL Urine Glucose (UA) (NEG) MG/DL Urine Ketones (NEG) MG/DL Urine Blood (NEG) Urine Nitrite (NEG) Ur Leukocyte Esterase (NEG) Urine Test (NEGATIVE) COVID-19 (MAUREEN) Negative (Negative) COVID-19 Clin Com See Note 11/18/21 11/18/21 Range/Units 21:55 21:55 WBC (4.8-10.8) X10*3/uL RBC (4.20-5.50) X10*6/uL Hgb (12.0-16.0) g/dl Hct (37.0-47.0) % MCV (80.0-98.0) fL MCH (27.0-33.0) pg MCHC (31.0-35.0) g/dl RDW (11.0-16.0) % Plt Count (160-400) X10*3/uL MPV (9.4-12.3) fL Immature Gran % (Auto) (0.0-0.4) % Neut % (Auto) (45-73) % Lymph % (Auto) (20-40) % [place] % (Auto) (2-11) % Eos % (Auto) (0-4) % Baso % (Auto) (0-2) % Lymph # (Auto) (1.2-4.9) X10*3/uL [place] # (Auto) (0.1-1.2) X10*3/uL Eos # (Auto) (0.0-0.4) X10*3/uL Baso # (Auto) (0.0-0.2) X10*3/uL Abs Immat Gran (auto) (0.00-0.03) X10*3/uL Absolute Neuts (auto) (2.0-8.3) x10*3/uL Absolute Nucleated RBC (0.0-0.012) X10*3/uL Nucleated RBC % (auto) (0.0-0.2) /100WBC Sodium (135-145) mmol/L Potassium (3.3-5.1) mmol/L Chloride (96-108) mmol/L Carbon Dioxide (22-29) mmol/L Anion Gap (12-20) BUN (9-16) mg/dL Creatinine (0.5-1.4) mg/dL Estim Creat Clear Calc Estimated GFR Random Glucose (60-115) mg/dL Calcium (8.4-10.2) mg/dL Total Bilirubin (0.0-1.0) mg/dL Direct Bilirubin (0.0-0.5) mg/dL AST (5-31) U/L ALT (0-31) U/L Alkaline Phosphatase (39-117) U/L Total Protein (6.5-8.0) g/dL Albumin (3.5-5.0) g/dL Lipase (8-78) U/L Urine Color YELLOW Urine Appearance HAZY Urine pH 6.0 (5.0-8.0) Ur Specific [place] 1.010 (1.005-1.025) Urine Protein NEG (NEG-TRACE) MG/DL Urine Glucose (UA) NEG (NEG) MG/DL Urine Ketones NEG (NEG) MG/DL Urine Blood NEG (NEG) Urine Nitrite NEG (NEG) Ur Leukocyte Esterase NEG (NEG) Urine Test NEGATIVE (NEGATIVE) COVID-19 (MAUREEN) (Negative) COVID-19 Clin Com Critical Care Time Critical Care Time Critical Care Time: No Discharge Plan Discharge Clinical Impression: Abdominal pain, Nausea & vomiting Patient Disposition: Home, Self-Care Instructions: Diet for Stomach Ulcers and Gastritis (ED), Acute Nausea and Vomiting (ED), Abdominal Pain (ED) Additional Instructions: Take your medications as prescribed. If you were prescribed antibiotics today, it is important that you take your medication to their entirety, do not skip any doses, do not finish them early. Follow-up with your primary care provider this week. Return to the emergency department with new or worsening symptoms. Such as fevers, chills, chest pain, shortness of breath, nausea, vomiting, dizziness, headache, vision changes, lethargy Please follow a bland diet. In case of emergency call 911 Your labs were reassuring, your urine was within normal limits, urine negative and your CT scan showed no acute findings. Please be advised that you were seen during a time of global shortage of iodinated contrast media. This means an alternative approach to your diagnosis and treatment may have been employed in order to provide optimal care during the shortage. If you have any worsening symptoms, please go to the nearest emergency department or call 911 immediately Prescriptions: New omeprazole 10 mg capsule,delayed release(DR/EC) 10 mg PO DAILY Qty: 14 0RF ondansetron 4 mg tablet,disintegrating 4 mg PO ONCE PRN (Reason: nausea and vomiting) Qty: 10 0RF No Action omeprazole magnesium [Prilosec OTC] 20 mg tablet,delayed release (DR/EC) 20 mg PO DAILY Qty: 30 0RF ondansetron 4 mg tablet,disintegrating 4 mg PO Q6-8H PRN (Reason: nausea and vomiting) Qty: 7 0RF omeprazole 20 mg capsule,delayed release(DR/EC) 20 mg PO DAILY Qty: 30 0RF Referrals: Physician,Miryam Power [Primary Care Provider] - 2 days Josué Espinosa [Physician] - 2 weeks Stand Alone Forms: Work/School Release
[2021-11-18 22:22] LABS: Alanine Aminotransferase 9 U/L (0-31); Albumin Level 4.2 g/dL (3.5-5.0); Alkaline Phosphatase 54 U/L (39-117); Anion Gap 10 (12-20); Aspartate Amino Transferase 14 U/L (5-31); Bilirubin Direct 0.2 mg/dL (0.0-0.5); Bilirubin Total 0.5 mg/dL (0.0-1.0); Blood Urea Nitrogen 9 mg/dL (9-16); Calcium 9.2 mg/dL (8.4-10.2); Carbon Dioxide 27 mmol/L (22-29); Chloride 104 mmol/L (96-108); Estimated Glomerular Filt Rate > 60; Glucose Random 65 mg/dL (60-115); Potassium 3.8 mmol/L (3.3-5.1); Sodium 137 mmol/L (135-145); Total Protein 6.9 g/dL (6.5-8.0)
[2021-11-18 22:26] LABS: Lipase 49 U/L (8-78)
[2021-11-18 22:45] VITALS: BP 92/61; PULSE 73; RESP 16; O2SAT 99
[2021-11-18] MEDS: Magnesium Hydrox/Alum Hydrox 30 ML ORAL.SUSP PO (22:47)
[2021-11-18] MEDS: Ondansetron ODT 4 MG TAB.RAPDIS TRANSLINGU (22:47)
[2021-11-18] MEDS: PHENobarb/Hyoscy/Atropine/Scop 10 ML ELIXIR PO (22:47)
[2021-11-18 23:19] VITALS: BP 108/61; PULSE 63; RESP 16; O2SAT 98
== END 2021-11-19 00:15 | disposition home or self-care (01) ==
PROVIDERS: Physician Assistant; Emergency Provider Internal Medicine
DX: R10.13 Epigastric pain (principal); R11.2 Nausea with vomiting, unspecified; Z20.822 Contact with and (suspected) exposure to COVID-19; Z79.899 Other long term (current) drug therapy
CPT/HCPCS: 36415; 74176; 80053; 81003; 81025; 82248; 83690; 85025; 87635; 99284

== ENCOUNTER 2022-11-25 17:27 | Emergency (ER) | payer MEDICAID, SELFPAY ==
--- NOTE | ~2022-11-25 | CT_ITS ---
EXAMINATION: CT HEAD WITHOUT CONTRAST CLINICAL INFORMATION: Fall with head strike. Laceration and headache. COMPARISON: None available. TECHNIQUE: Contiguous axial imaging was performed from the skull base to vertex without intravenous administration of contrast. This CT examination was performed using dose optimization techniques as appropriate, variously including the following: *Automated exposure control *Adjustment of mA and/or kV according to patient size (this includes techniques or standardized protocols for targeted exams where dose is matched to indication/reason for exam; i.e. extremities or head) *Use of iterative reconstruction technique DLP: 606 mGy-cm FINDINGS: There is no acute intra-axial, extra-axial bleed, masses or midline shift. There is no acute infarction evolution. There is no edema. Reveles to white matter differentiation is maintained normal. The lateral ventricles are symmetrical in size and configuration without enlargement. Bone windows reveal no calvarial abnormality. Bilateral paranasal sinuses and mastoid air cells are well-aerated. No scalp soft tissue abnormality seen. CT/CT head/brain wo IV con IMPRESSION: No acute intracranial process seen.
[2022-11-25 17:53] VITALS: BP 114/81; PULSE 86; O2SAT 98; BMI 20.4
--- NOTE | 2022-11-25 17:53 | ED.HEATRA ---
HPI - Head Injury General Chief complaint: Head Injury Stated complaint: fainted/head injury Time Seen by Provider: 11/25/22 19:33 Source: patient, RN notes reviewed and old records reviewed Mode of arrival: ambulatory Limitations: no limitations History of Present Illness HPI Narrative: 22-year-old female presents for evaluation of a reported syncopal episode. Patient reports that she did not eat or drink anything all day. She reports that after driving home she got out of her car She reports feeling dizzy and passing out striking the back of her head on the concrete Complains of a mild headache She is unsure of how long she was unconscious as this was an unwitnessed event Denies any chest pain or shortness of breath Patient also bit the inside of her lip and has a small laceration to the inside of her lip she has a laceration to the back of her head Unknown last tetanus Related Data Previous Rx's Medication Instructions Recorded omeprazole magnesium 20 mg 20 mg PO DAILY #30 tabs 05/05/20 tablet,delayed release (Prilosec OTC) ondansetron 4 mg disintegrating 4 mg PO Q6-8H PRN nausea and 05/05/20 tablet vomiting #7 tabs omeprazole 20 mg capsule,delayed 20 mg PO DAILY #30 caps 08/01/21 release omeprazole 10 mg capsule,delayed 10 mg PO DAILY #14 caps 11/19/21 release ondansetron 4 mg disintegrating 4 mg PO ONCE PRN nausea and 11/19/21 tablet vomiting #10 tabs Allergies Allergy/AdvReac Type Severity Reaction Status Date / Time Penicillins [PENICILLINS] Allergy Unknown UNKNOWN Verified 11/25/22 18:04 Review of Systems Constitutional: Constitutional: Reports headache(s) Eyes: Eyes: Reports blurry vision ENT: Reports headache(s) Cardiovascular: Cardiovascular: Denies chest pain, Reports syncope and Denies dyspnea Respiratory: Respiratory: Denies dyspnea Gastrointestinal: Gastrointestinal: Denies abdominal pain, Denies nausea and Denies vomiting Musculoskeletal: Musculoskeletal: Denies arthralgias Integumentary/Breasts: Skin/Breast: Reports wounds Neurologic: Reports syncope and Reports headache(s) [facility] Past Medical History Medical History No known health problems Social History Social History Alcohol intake: never Advance Directives: No Advance Directives Information Provided: No Physical Exam Vital Signs: Vital Signs: Last Vital Signs Pulse 86 11/25/22 17:53 BP 114/81 11/25/22 17:53 Pulse Ox 98 11/25/22 17:53 O2 Del Method Room Air 11/25/22 17:53 BMI result Body Mass Index 20.4 Const: General: healthy appearing, comfortable, no acute distress, alert and awake Nutritional Appearance: well nourished Orientation/consciousness: patient oriented x3 HEENT: Other: 1 cm partial-thickness laceration to the buccal mucosa of the inner lower lip. It is not through and through Eyes: Eyelids: Yes eyelids normal Conjunctivae: conjunctivae normal Sclerae: sclerae normal Corneas: corneas normal Pupils: Equal, round and reactive pupils present EOM: EOMs intact bilaterally Neck: Neck: Yes full ROM Resp: Effort & Inspection: normal respiratory effort, able to speak in complete sentences and not labored Skin: Other: 4 cm linear full-thickness laceration to the left occipital scalp. No active bleeding General skin exam: elasticity normal Neuro: General: patient oriented x3 Cranial nerves: Yes Equal, round and reactive pupils present and Yes Bilaterally intact EOM present Cognition (Neuro): normal cognition Course Course Course Narrative: RME - 22 yo female with history of low iron, syncope who presents to the ER for evaluation of a head injury sustained today when she fainted while walking into her friend's house. She states before she fainted she felt dizzy, hot, with blurred vision. She hit her head on the pavement. Sustained a laceration to the back of the head. Pain is >10/10. Reports history of fainting in the past. 4cm laceration to back of her head. AAO x3. Feeling dizzy with standing up. Plan: CT head, lab workup, orthostatics, EKG Medications Administered Discontinued Medications Generic Name Dose Route Start Last Admin Trade Name Freq PRN Reason Stop Dose Admin Lidocaine HCl 10 ml 11/25/22 20:02 11/25/22 20:09 Lidocaine Hcl 1 % Mpf 5 Ml Vial INFILTRATI 11/25/22 20:03 10 ml ONCE ONE Administration Medical Decision Making Medical Decision Making [facility] Narrative: This is a healthy 22-year-old female presents for evaluation after a syncopal episode. Denies history of same. She did not your drink anything today and was a hot day. Patient syncopized shortly after standing up to get out of her car. EKG is nonischemic, sinus rhythm with a sinus arrhythmia, rate of 71 beats per minute. Labs are otherwise without significant abnormalities. She does have a mild leukocytosis but no cough, shortness of breath, chest pain, no abdominal pain, nausea vomiting, no urinary symptoms. CT scan of the brain ordered to rule out traumatic injury. Patient's posterior scalp wound closed with surgical easton. She had a lip wound that was not through and through that was sutured with 5-0 Vicryl Differential Diagnosis Syncope Head laceration Lip laceration Puncture wound Arrhythmia Lab Data 11/25/22 18:15 11/25/22 18:15 Labs: Lab Results 11/25/22 11/25/22 11/25/22 Range/Units 18:15 18:15 18:15 WBC 14.5 H (4.8-10.8) X10*3/uL RBC 4.59 (4.20-5.50) X10*6/uL Hgb 14.3 (12.0-16.0) g/dl Hct 41.8 (37.0-47.0) % MCV 91.1 (80.0-98.0) fL MCH 31.2 (27.0-33.0) pg MCHC 34.2 (31.0-35.0) g/dl RDW 12.1 (11.0-16.0) % Plt Count 254 (160-400) X10*3/uL MPV 10.6 (9.4-12.3) fL Immature Gran % (Auto) 0.4 (0.0-0.4) % Neut % (Auto) 85.1 H (45-73) % Lymph % (Auto) 8.3 L (20-40) % [place] % (Auto) 5.9 (2-11) % Eos % (Auto) 0.1 (0-4) % Baso % (Auto) 0.2 (0-2) % Lymph # (Auto) 1.2 (1.2-4.9) X10*3/uL [place] # (Auto) 0.9 (0.1-1.2) X10*3/uL Eos # (Auto) 0.0 (0.0-0.4) X10*3/uL Baso # (Auto) 0.0 (0.0-0.2) X10*3/uL Abs Immat Gran (auto) 0.06 H (0.00-0.03) X10*3/uL Absolute Neuts (auto) 12.3 H (2.0-8.3) x10*3/uL Absolute Nucleated RBC 0.000 (0.0-0.012) X10*3/uL Nucleated RBC % (auto) 0.0 (0.0-0.2) /100WBC Sodium 140 (135-145) mmol/L Potassium 3.6 (3.3-5.1) mmol/L Chloride 105 (96-108) mmol/L Carbon Dioxide 26 (22-29) mmol/L Anion Gap 13 (12-20) BUN 10 (9-16) mg/dL Creatinine 0.74 (0.5-1.4) mg/dL Estim Creat Clear Calc 110.5 Estimated GFR > 60 Random Glucose 100 (60-115) mg/dL Calcium 9.3 (8.4-10.2) mg/dL Magnesium 2.2 (1.6-2.6) mg/dL Total Bilirubin 0.6 (0.0-1.0) mg/dL Direct Bilirubin 0.2 (0.0-0.5) mg/dL AST 23 (5-31) U/L ALT 16 (0-31) U/L Alkaline Phosphatase 62 (39-117) U/L Total Protein 7.2 (6.5-8.0) g/dL Albumin 4.4 (3.5-5.0) g/dL Urine Color Yellow Urine Appearance Cloudy Urine pH 5.5 (5.0-9.0) Ur Specific [place] 1.020 (1.005-1.025) Urine Protein 100 (2+) H (Neg-Trace) mg/dL Urine Glucose (UA) Negative (Negative) mg/dL Urine Ketones 15 (Negative) mg/dL Urine Blood Negative (Negative) Urine Nitrite Negative (Negative) Ur Leukocyte Esterase Negative (Negative) Urine RBC 0-2 (0-2) /HPF Urine WBC 0-5 (0-5) /HPF Ur Squamous Epith Cells 11-20 (0-2) /HPF Urine Bacteria 1+ (None Seen) Hyaline Casts 0-2 (0-2) /LPF Urine Test (NEGATIVE) 11/25/22 Range/Units 18:15 WBC (4.8-10.8) X10*3/uL RBC (4.20-5.50) X10*6/uL Hgb (12.0-16.0) g/dl Hct (37.0-47.0) % MCV (80.0-98.0) fL MCH (27.0-33.0) pg MCHC (31.0-35.0) g/dl RDW (11.0-16.0) % Plt Count (160-400) X10*3/uL MPV (9.4-12.3) fL Immature Gran % (Auto) (0.0-0.4) % Neut % (Auto) (45-73) % Lymph % (Auto) (20-40) % [place] % (Auto) (2-11) % Eos % (Auto) (0-4) % Baso % (Auto) (0-2) % Lymph # (Auto) (1.2-4.9) X10*3/uL [place] # (Auto) (0.1-1.2) X10*3/uL Eos # (Auto) (0.0-0.4) X10*3/uL Baso # (Auto) (0.0-0.2) X10*3/uL Abs Immat Gran (auto) (0.00-0.03) X10*3/uL Absolute Neuts (auto) (2.0-8.3) x10*3/uL Absolute Nucleated RBC (0.0-0.012) X10*3/uL Nucleated RBC % (auto) (0.0-0.2) /100WBC Sodium (135-145) mmol/L Potassium (3.3-5.1) mmol/L Chloride (96-108) mmol/L Carbon Dioxide (22-29) mmol/L Anion Gap (12-20) BUN (9-16) mg/dL Creatinine (0.5-1.4) mg/dL Estim Creat Clear Calc Estimated GFR Random Glucose (60-115) mg/dL Calcium (8.4-10.2) mg/dL Magnesium (1.6-2.6) mg/dL Total Bilirubin (0.0-1.0) mg/dL Direct Bilirubin (0.0-0.5) mg/dL AST (5-31) U/L ALT (0-31) U/L Alkaline Phosphatase (39-117) U/L Total Protein (6.5-8.0) g/dL Albumin (3.5-5.0) g/dL Urine Color Urine Appearance Urine pH (5.0-9.0) Ur Specific [place] (1.005-1.025) Urine Protein (Neg-Trace) mg/dL Urine Glucose (UA) (Negative) mg/dL Urine Ketones (Negative) mg/dL Urine Blood (Negative) Urine Nitrite (Negative) Ur Leukocyte Esterase (Negative) Urine RBC (0-2) /HPF Urine WBC (0-5) /HPF Ur Squamous Epith Cells (0-2) /HPF Urine Bacteria (None Seen) Hyaline Casts (0-2) /LPF Urine Test NEGATIVE (NEGATIVE) Radiology Impression Discussion of test interpretation with radiology: I have reviewed the radiologist's reading. (No acute intracranial pathology) Procedures Laceration Laceration 1: Site: scalp Side (If applicable): left Size (cm): 4 Description: linear Depth: simple, single layer Local Anesthetic: lidocaine 1% Amount of anesthesia used (mL): 6 Skin layer closed with: other (Surgical easotn) Number of sutures: 6 Laceration 2: Site: lip (In her lower lip) Size (cm): 1 Description: linear Depth: simple, single layer Local Anesthetic: lidocaine 1% Amount of anesthesia used (mL): 1 Skin layer closed with: vicryl Size (cm): 5-0 Number of sutures: 2 Discharge Plan Discharge Clinical Impression: Syncope, Laceration of scalp, Laceration of lip Patient Disposition: Home, Self-Care Instructions: Laceration (ED), Syncope (ED) Additional Instructions: Your workup in the emergency department today was reassuring. You had 6 easton placed to the posterior scalp These need to be removed in 7 days You had to dissolve double sutures placed to your lower lip on the inside The should dissolve on their own and do not have to be removed Follow-up with your primary doctor Return for new or worsening symptoms Prescriptions: No Action omeprazole magnesium [Prilosec OTC] 20 mg tablet,delayed release (DR/EC) 20 mg PO DAILY Qty: 30 0RF ondansetron 4 mg tablet,disintegrating 4 mg PO Q6-8H PRN (Reason: nausea and vomiting) Qty: 7 0RF omeprazole 20 mg capsule,delayed release(DR/EC) 20 mg PO DAILY Qty: 30 0RF omeprazole 10 mg capsule,delayed release(DR/EC) 10 mg PO DAILY Qty: 14 0RF ondansetron 4 mg tablet,disintegrating 4 mg PO ONCE PRN (Reason: nausea and vomiting) Qty: 10 0RF
--- NOTE | 2022-11-25 17:56 | ECG_ITS ---
Test Reason : dizzinnes Blood Pressure : / mmHG Vent. Rate : 071 BPM Atrial Rate : 071 BPM P-R Int : 140 ms QRS Dur : 092 ms QT Int : 376 ms P-R-T Axes : 082 077 062 degrees QTc Int : 408 ms Sinus rhythm with marked sinus arrhythmia Incomplete RBBB Otherwise normal ECG No previous ECGs available Referred By: Jil Mendieta Electronically Signed By:Mauricio Noel
[2022-11-25 18:27] LABS: MANUAL DIFF FLAG NO
[2022-11-25 18:42] LABS: Basophils Percent Auto 0.2 % (0-2); Eosinophils Percent Auto 0.1 % (0-4); Hematocrit 41.8 % (37.0-47.0); Hemoglobin 14.3 g/dl (12.0-16.0); Imm Gran Abs Auto 0.06 X10*3/uL (0.00-0.03); Imm Gran Pct Auto 0.4 % (0.0-0.4); Lymphocytes Absolute Auto 1.2 X10*3/uL (1.2-4.9); Lymphocytes Percent Auto 8.3 % (20-40); Mean Corpuscular HGB Conc 34.2 g/dl (31.0-35.0); Mean Corpuscular Hemoglobin 31.2 pg (27.0-33.0); Mean Corpuscular Volume 91.1 fL (80.0-98.0); Mean Platelet Volume 10.6 fL (9.4-12.3); Monocytes Absolute Auto 0.9 X10*3/uL (0.1-1.2); Monocytes Percent Auto 5.9 % (2-11); Neutrophils Absolute Auto 12.3 x10*3/uL (2.0-8.3); Neutrophils Percent Auto 85.1 % (45-73); Platelet Count 254 X10*3/uL (160-400); Red Blood Count 4.59 X10*6/uL (4.20-5.50); Red Cell Distribution Width 12.1 % (11.0-16.0); White Blood Count 14.5 X10*3/uL (4.8-10.8)
[2022-11-25 18:44] LABS: Appearance Urine Cloudy; Color Urine Yellow; Glucose Urine UA Negative (Negative); Leukocyte Esterase Urine Negative (Negative); Nitrite Urine Negative (Negative); PH 5.5 (5.0-9.0); UMIC TRIGGER UACC YES; Urine Blood Negative (Negative); Urine Ketones 15 mg/dL (Negative); Urine Protein 100 (2+) mg/dL (Neg-Trace)
[2022-11-25 18:45] LABS: Bacteria Urine 1+ (None Seen); Hyaline Casts Urine 0-2 /LPF (0-2); RBC Urine 0-2 /HPF (0-2); WBC Urine 0-5 /HPF (0-5)
[2022-11-25 18:55] LABS: Alanine Aminotransferase 16 U/L (0-31); Albumin Level 4.4 g/dL (3.5-5.0); Alkaline Phosphatase 62 U/L (39-117); Anion Gap 13 (12-20); Aspartate Amino Transferase 23 U/L (5-31); Bilirubin Direct 0.2 mg/dL (0.0-0.5); Bilirubin Total 0.6 mg/dL (0.0-1.0); Blood Urea Nitrogen 10 mg/dL (9-16); Calcium 9.3 mg/dL (8.4-10.2); Carbon Dioxide 26 mmol/L (22-29); Chloride 105 mmol/L (96-108); Creatinine Clr Calc Pharmacy 110.5; Estimated Glomerular Filt Rate > 60; Glucose Random 100 mg/dL (60-115); Magnesium 2.2 mg/dL (1.6-2.6); Potassium 3.6 mmol/L (3.3-5.1); Sodium 140 mmol/L (135-145); Total Protein 7.2 g/dL (6.5-8.0)
[2022-11-25 19:49] LABS: Urine Pregnancy NEGATIVE (NEGATIVE)
[2022-11-25 19:50] LABS: UPreg QC Valid YES
[2022-11-25] MEDS: Lidocaine HCl 1 % MPF 5 ML VIAL 10 ML INFILTRATI (20:09)
== END 2022-11-25 21:16 | disposition home or self-care (01) ==
PROVIDERS: Physician Assistant; Emergency Provider Emergency Medicine Emergency Medical Services
DX: S01.01XA Laceration without foreign body of scalp, initial encounter (principal); S01.511A Laceration without foreign body of lip, initial encounter; W17.89XA Other fall from one level to another, initial encounter; Y93.9 Activity, unspecified; Y92.410 Unspecified street and highway as the place of occurrence of the external cause; Y99.9 Unspecified external cause status
CPT/HCPCS: 12002; 12011; 36415; 70450; 80048; 80076; 81001; 81025; 83735; 85025; 93005; 99283; 99284

== ENCOUNTER 2022-12-02 13:31 | Emergency (ER) | payer MEDICAID, SELFPAY ==
[2022-12-02 13:56] VITALS: BP 111/72; PULSE 56; RESP 18; TEMP 36.8; O2SAT 99; BMI 20.4
--- NOTE | 2022-12-02 13:58 | ED.GENADULT ---
HPI - General Adult General Chief complaint: Skin/Abscess/Foreign Body Stated complaint: Suture removal Time Seen by Provider: 12/02/22 17:24 Source: patient and RN notes reviewed Mode of arrival: ambulatory Limitations: no limitations History of Present Illness HPI narrative: This is a 22-year-old female presenting to the emergency department with complaints of suture removal and right-sided neck pain. Patient was seen last week where she had a syncopal episode and lacerated her scalp. She had 6 easton placed. Patient tolerated the easton well without any complications, denies drainage, fevers or chills. She states that over the last 3-4 days her neck has felt tight. No recent trauma or injury since syncopal episode which she was already evaluated for last week. States that the pain worsens in the right side of her neck when she moves her neck laterally. Denies any headaches, blurred vision, chest pain, shortness of breath, abdominal pain, nausea, vomiting, or diarrhea. No other complaints or concerns at this time. MD complaint: Neck pain Onset (ago): day(s) Location: head Radiation: non-radiation Pain Consistency: intermittent Relieving factors: immobilization Exacerbating factors: none Associated symptoms: denies other symptoms Treatments prior to arrival: none Related Data Previous Rx's Medication Instructions Recorded omeprazole magnesium 20 mg 20 mg PO DAILY #30 tabs 05/05/20 tablet,delayed release (Prilosec OTC) ondansetron 4 mg disintegrating 4 mg PO Q6-8H PRN nausea and 05/05/20 tablet vomiting #7 tabs omeprazole 20 mg capsule,delayed 20 mg PO DAILY #30 caps 08/01/21 release omeprazole 10 mg capsule,delayed 10 mg PO DAILY #14 caps 11/19/21 release ondansetron 4 mg disintegrating 4 mg PO ONCE PRN nausea and 11/19/21 tablet vomiting #10 tabs cyclobenzaprine 5 mg tablet 5 mg PO TID PRN muscle spasm #10 12/02/22 tabs ibuprofen 600 mg tablet 600 mg PO Q6H PRN pain #30 tabs 12/02/22 Allergies Allergy/AdvReac Type Severity Reaction Status Date / Time Penicillins [PENICILLINS] Allergy Unknown UNKNOWN Verified 11/25/22 18:04 Review of Systems Review of Systems: Constitutional: No Weight loss, No Fever, No Chills ENT/Mouth: No Ear Pain, No Nasal Congestion, No Sinus Pain, No Hoarseness, No sore throat, No Rhinorrhea, No Swallowing Difficulty Cardiovascular: No Chest Pain, No SOB Respiratory: No Cough, No Sputum, No Wheezing Gastrointestinal: No Nausea, No Vomiting, No Diarrhea, No Constipation, No Abdominal pain Genitourinary: No Dysuria, No Urinary Frequency, No Hematuria, No Urinary Incontinence/retention, No Urgency, No Flank Pain Musculoskeletal: No joint pain, No Myalgias, No Joint Swelling Skin: No Skin Lesions, No rash Neuro: No Weakness, No Numbness, No Paresthesias Yes all other systems are reviewed and are negative Constitutional: Constitutional: Reports as per [facility] Past Medical History Medical History No known health problems Social History Social History Alcohol intake: never Advance Directives: No Advance Directives Information Provided: Yes Physical Exam ED Vital Signs: Vital Signs - 24 hr 12/02/22 13:56 Temperature 98.3 F Pulse Rate 56 Respiratory Rate 18 Blood Pressure 111/72 Pulse Oximetry 99 BMI result Body Mass Index 20.4 Const General: cooperative, comfortable and no acute distress Orientation/consciousness: patient oriented x3 Limitations: no limitations HENMT Head: Yes normal to inspection, Yes normocephalic and Yes atraumatic Ears: hearing grossly normal bilaterally General nose exam: Normal external nose present Face and sinus: Yes normal facial exam Mouth: Normal oral and palatal mucosa present, oropharynx normal and moist mucous membranes Throat: Yes posterior oropharynx normal Eyes General: appearance normal, both eyes and all related structures Eyelids: Yes eyelids normal Conjunctivae: conjunctivae normal Sclerae: sclerae normal Pupils: Equal, round and reactive pupils present EOM: EOMs intact bilaterally Neck Neck: Yes normal visual inspection, Yes full ROM and Yes no lymphadenopathy Lymphatic: no lymphadenopathy noted Chest Chest palpation & inspection: normal inspection of the chest Resp Effort & Inspection: normal respiratory effort and able to speak in complete sentences Auscultation: clear to auscultation bilaterally, no crackles, no rales, no rhonchi and no wheezes Cardio Rate: regular rate Rhythm: regular rhythm Heart sounds: S1 normal heart sound present and S2 normal heart sound present GI Inspection: Yes normal to inspection Back/Spine/Pelvis Other: Right cervical paraspinous muscle tenderness palpation with spasm and right trapezial muscle spasm palpated. Neck range of motion is full and intact, pain elicited with lateral rotation to the right. Able to flex and extend without difficulty. No nuchal rigidity. No midline spine tenderness to palpation. Cervical Spine: normal cervical lordosis and cervical ROM normal Skin Other: Well-healed laceration to the left occipital scalp, no drainage or bleeding. No wound dehiscence. No surrounding erythema, edema, fluctuance. Area is nontender. General skin exam: no rashes or lesions noted Trauma: no lacerations or abrasions Wounds: no wounds Neuro General: patient oriented x3 and moves all extremities Cranial nerves: Yes Equal, round and reactive pupils present Extrem General: Yes normal to inspection Right upper extremity: normal to inspection Left upper extremity: normal to inspection Right lower extremity: normal to inspection Left lower extremity: normal to inspection Course Course Course Narrative: RME: 22 yold female return to the ED for easton removal from scalp. easton placed 7 days ago Medical Decision Making Medical Decision Making [facility] Narrative: 22-year-old female presenting to the emergency department for evaluation of staple removal and right-sided neck pain. Stable successfully removed using staple remover. Patient tolerated procedure well without any complications. Right cervical paraspinous muscles with spasm and right trapezial muscles with spasm and tender to palpation. Patient has no nuchal rigidity and range of motion of the neck is full and intact. Patient is afebrile, no meningeal signs, and all vital signs within normal limits. Symptoms consistent with muscle spasm, will treat with ibuprofen and muscle relaxants. Patient advised to return with any new or worsening symptoms. Patient understands and agrees with plan. Patient stable for discharge. Differential Diagnosis Differential Diagnoses: The differential diagnosis associated with the presentation includes Staple removal, cellulitis, wound dehiscence, muscle spasm, meningitis-unlikely Discharge Plan Discharge Clinical Impression: Removal of easton, Trapezius muscle spasm Patient Disposition: Home, Self-Care Instructions: Muscle Spasm (ED), Staple Care (ED) Additional Instructions: We removed all 6 easton from your head today. Please gently wash wound with mild soap and water. Watch for any signs of infection including but not limited to fevers, chills, drainage from the wound. Your neck muscles are spasm, take ibuprofen for your symptoms. I am also prescribing a muscle relaxant, this does cause drowsiness, do not drink alcohol or drive while taking this. If any new or worsening symptoms occur please return. Follow-up with primary care physician. Prescriptions: New ibuprofen 600 mg tablet 600 mg PO Q6H PRN (Reason: pain) Qty: 30 0RF cyclobenzaprine 5 mg tablet 5 mg PO TID PRN (Reason: muscle spasm) Qty: 10 0RF No Action omeprazole magnesium [Prilosec OTC] 20 mg tablet,delayed release (DR/EC) 20 mg PO DAILY Qty: 30 0RF ondansetron 4 mg tablet,disintegrating 4 mg PO Q6-8H PRN (Reason: nausea and vomiting) Qty: 7 0RF omeprazole 20 mg capsule,delayed release(DR/EC) 20 mg PO DAILY Qty: 30 0RF omeprazole 10 mg capsule,delayed release(DR/EC) 10 mg PO DAILY Qty: 14 0RF ondansetron 4 mg tablet,disintegrating 4 mg PO ONCE PRN (Reason: nausea and vomiting) Qty: 10 0RF Interventions: ED Discharge Assessment Last Done: 12/02/22 18:39 Discharge Date/Time: 12/02/22 18:39
== END 2022-12-02 18:39 | disposition home or self-care (01) ==
PROVIDERS: Emergency Provider Internal Medicine
DX: Z48.02 Encounter for removal of sutures (principal); S01.01XD Laceration without foreign body of scalp, subsequent encounter; W17.89XD Other fall from one level to another, subsequent encounter; M62.838 Other muscle spasm
CPT/HCPCS: 99282; 99283

== ENCOUNTER 2023-01-06 16:03 | Emergency (ER) | payer MEDICAID, SELFPAY ==
--- NOTE | 2023-01-06 16:39 | ED_ITS ---
HPI - General Adult General Chief complaint: General Medical Stated complaint: dizziness/vomiting Time Seen by Provider: 01/06/23 19:59 Source: patient Mode of arrival: ambulatory Limitations: no limitations History of Present Illness HPI narrative: Patient comes to the emergency room complaining of nausea and vomiting that started approximately 18 hours ago. Patient is currently menstruating, mild abdominal cramping, no significant abdominal pain. Patient denies fever chills, no flank pain. Related Data Previous Rx's Medication Instructions Recorded omeprazole magnesium 20 mg 20 mg PO DAILY #30 tabs 05/05/20 tablet,delayed release (Prilosec OTC) ondansetron 4 mg disintegrating 4 mg PO Q6-8H PRN nausea and 05/05/20 tablet vomiting #7 tabs omeprazole 20 mg capsule,delayed 20 mg PO DAILY #30 caps 08/01/21 release omeprazole 10 mg capsule,delayed 10 mg PO DAILY #14 caps 11/19/21 release ondansetron 4 mg disintegrating 4 mg PO ONCE PRN nausea and 11/19/21 tablet vomiting #10 tabs cyclobenzaprine 5 mg tablet 5 mg PO TID PRN muscle spasm #10 12/02/22 tabs ibuprofen 600 mg tablet 600 mg PO Q6H PRN pain #30 tabs 12/02/22 levofloxacin 500 mg tablet 500 mg PO DAILY #9 tabs 01/06/23 ondansetron HCl 4 mg tablet 4 mg PO Q6H PRN nausea and 01/06/23 vomiting #10 tabs Allergies Allergy/AdvReac Type Severity Reaction Status Date / Time Penicillins [PENICILLINS] Allergy Unknown UNKNOWN Verified 01/06/23 16:44 Review of Systems Review of Systems: Constitutional : No Weight loss, No Fever, No Chills, No Night Sweats, No Fatigue, No Malaise ENT/Mouth : No Hearing loss, No Ear Pain, No Nasal Congestion, No Sinus Pain, No Hoarseness, No sore throat, No Rhinorrhea, No Swallowing Difficulty Eyes: No Eye Pain, No Swelling, No Redness, No Foreign Body, No Discharge, No Vision Changes Cardiovascular : No Chest Pain, No SOB, No Dyspnea on Exertion, No Orthopnea, No Edema, No Palpitations Respiratory : No Cough, No Sputum, No Wheezing, No Smoke Exposure, No Dyspnea Gastrointestinal : Complaining of nausea and vomiting, No Diarrhea, No Constipation, No abdominal Pain, No Hematochezia, No Melena Genitourinary : no irregular bleeding, No Dysuria, No Urinary Frequency, No Hematuria, No Urinary Incontinence, No Urgency, No Flank Pain, No Urinary Flow Changes, No Hesitancy Musculoskeletal : No joint pain, No Myalgias, No Joint Swelling Skin : No Skin Lesions, No rash Neuro : No Weakness, No Numbness, No Paresthesias, No Loss of Consciousness, No Dizziness, No Headache Psych : No Anxiety/Panic, No Depression, No SI/HI/AH/VH, No Social Issues, Heme/Lymph: No Bruising, No Bleeding,No Lymphadenopathy Endocrine : No Polyuria, No Polydipsia, No Temperature Intolerance PMFSH Past Medical History Medical History No known health problems Social History Social History Alcohol intake: never Advance Directives: No Advance Directives Information Provided: No Physical Exam ED Vital Signs: Vital Signs - 24 hr 01/06/23 16:40 01/06/23 20:00 Temperature 97.4 F 98.8 F Pulse Rate 81 69 Respiratory Rate 16 16 Blood Pressure 107/62 108/78 Pulse Oximetry 99 98 Oxygen Delivery Method Room Air Room Air BMI result Body Mass Index 20.4 Const Other: Appearance: Alert. Oriented X3. No acute distress. Eyes: Pupils equal, round and reactive to light. ENT: Pharynx normal. Dry oral mucosa Neck: Normal inspection. Neck supple. No lymph nodes noted. No crepitus CVS: Normal heart rate and rhythm. Pulses normal. Normal S1 and S2 Respiratory: No respiratory distress. Breath sounds normal. No Wheezing. No rales Abdomen: Soft and nontender. No rigidity. No distention. Skin: Skin warm and dry. Normal skin color. Normal skin turgor. Extremities: No lower extremity edema. No Lacerations. No Rash Neuro: Oriented X 3. No motor deficit. No sensory deficit. Moving all extremities. No slurred speech. CN 2 through 12 grossly intact Psych: calm, cooperative, normal affect Course Course Course Narrative: RME performed by Solange Smiley PA-C. Patient is a 22 year old assigned female at presenting to the emergency department with dizziness and vomiting. Labs and swabs ordered. Patient placed back in the waiting room pending room availability and results. Medications Administered Discontinued Medications Generic Name Dose Route Start Last Admin Trade Name Anjali PRN Reason Stop Dose Admin Sodium Chloride 1,000 mls @ 999 mls/hr 01/06/23 20:05 01/06/23 20:48 Ns IVCONT 01/06/23 21:05 999 mls/hr .Q1H1M ONE Administration Ondansetron HCl 4 mg 01/06/23 20:05 01/06/23 20:48 Ondansetron Hcl 4 Mg/2 Ml Vial IVPUSH 01/06/23 20:06 4 mg ONCE ONE Administration Medical Decision Making Medical Decision Making [facility] Narrative: -on physical exam, patient seems a bit dehydrated, getting IV fluids -my interpretation of labs: No significant infection, white blood cell count within normal limits, electrolytes stable. Patient's initial glucose 57, rechecked 75. -patient has no abdominal pain on physical exam. Patient giving IV fluids Zofran, likely to be discharged home. Imaging not indicated at this time. -my interpretation of labs: UTI positive, patient has no flank pain, pyelonephritis not suspected. Patient was given the 1st dose of antibiotics in the emergency room, [facility]. Patient's blood pressure, heart rate and temperature stable, Sepsis not suspected. Differential Diagnosis Differential Diagnoses: The differential diagnosis associated with the presentation includes (UTI, gastroenteritis, viral illness) Admission/Observation Consideration of admission/observation: Escalation of care including admission/observation considered (Patient came in a bit dehydrated, needed fluids, positive UTI, had patient was considered) Lab Data [facility] Lab Attestation statement: I reviewed the patient's lab results. 01/06/23 16:51 01/06/23 16:51 Labs: Lab Results 01/06/23 01/06/23 01/06/23 Range/Units 16:51 16:51 16:51 WBC 10.6 (4.8-10.8) X10*3/uL RBC 4.52 (4.20-5.50) X10*6/uL Hgb 14.0 (12.0-16.0) g/dl Hct 42.4 (37.0-47.0) % MCV 93.8 (80.0-98.0) fL MCH 31.0 (27.0-33.0) pg MCHC 33.0 (31.0-35.0) g/dl RDW 11.8 (11.0-16.0) % Plt Count 214 (160-400) X10*3/uL MPV 11.5 (9.4-12.3) fL Immature Gran % (Auto) 0.3 (0.0-0.4) % Neut % (Auto) 72.6 (45-73) % Lymph % (Auto) 17.1 L (20-40) % Frederick % (Auto) 8.9 (2-11) % Eos % (Auto) 0.9 (0-4) % Baso % (Auto) 0.2 (0-2) % Lymph # (Auto) 1.8 (1.2-4.9) X10*3/uL Frederick # (Auto) 0.9 (0.1-1.2) X10*3/uL Eos # (Auto) 0.1 (0.0-0.4) X10*3/uL Baso # (Auto) 0.0 (0.0-0.2) X10*3/uL Abs Immat Gran (auto) 0.03 (0.00-0.03) X10*3/uL Absolute Neuts (auto) 7.7 (2.0-8.3) x10*3/uL Absolute Nucleated RBC 0.000 (0.0-0.012) X10*3/uL Nucleated RBC % (auto) 0.0 (0.0-0.2) /100WBC Sodium 140 (135-145) mmol/L Potassium 3.7 (3.3-5.1) mmol/L Chloride 107 (96-108) mmol/L Carbon Dioxide 27 (22-29) mmol/L Anion Gap 10 L (12-20) BUN 10 (9-16) mg/dL Creatinine 0.80 (0.5-1.4) mg/dL Estim Creat Clear Calc 101.7 Estimated GFR > 60 POC Glucose (60-115) mg/dL Random Glucose 57 L* (60-115) mg/dL Calcium 8.7 D (8.4-10.2) mg/dL Magnesium 2.1 (1.6-2.6) mg/dL Total Bilirubin 0.7 (0.0-1.0) mg/dL AST 16 (5-31) U/L ALT 11 (0-31) U/L Alkaline Phosphatase 59 (39-117) U/L Troponin I High Sens < 2.7 (<3.5-17.0) ng/L Total Protein 6.7 (6.5-8.0) g/dL Albumin 4.0 (3.5-5.0) g/dL Beta HCG, Quant < 2 mIU/mL 01/06/23 Range/Units 20:04 WBC (4.8-10.8) X10*3/uL RBC (4.20-5.50) X10*6/uL Hgb (12.0-16.0) g/dl Hct (37.0-47.0) % MCV (80.0-98.0) fL MCH (27.0-33.0) pg MCHC (31.0-35.0) g/dl RDW (11.0-16.0) % Plt Count (160-400) X10*3/uL MPV (9.4-12.3) fL Immature Gran % (Auto) (0.0-0.4) % Neut % (Auto) (45-73) % Lymph % (Auto) (20-40) % Frederick % (Auto) (2-11) % Eos % (Auto) (0-4) % Baso % (Auto) (0-2) % Lymph # (Auto) (1.2-4.9) X10*3/uL Frederick # (Auto) (0.1-1.2) X10*3/uL Eos # (Auto) (0.0-0.4) X10*3/uL Baso # (Auto) (0.0-0.2) X10*3/uL Abs Immat Gran (auto) (0.00-0.03) X10*3/uL Absolute Neuts (auto) (2.0-8.3) x10*3/uL Absolute Nucleated RBC (0.0-0.012) X10*3/uL Nucleated RBC % (auto) (0.0-0.2) /100WBC Sodium (135-145) mmol/L Potassium (3.3-5.1) mmol/L Chloride (96-108) mmol/L Carbon Dioxide (22-29) mmol/L Anion Gap (12-20) BUN (9-16) mg/dL Creatinine (0.5-1.4) mg/dL Estim Creat Clear Calc Estimated GFR POC Glucose 75 (60-115) mg/dL Random Glucose (60-115) mg/dL Calcium (8.4-10.2) mg/dL Magnesium (1.6-2.6) mg/dL Total Bilirubin (0.0-1.0) mg/dL AST (5-31) U/L ALT (0-31) U/L Alkaline Phosphatase (39-117) U/L Troponin I High Sens (<3.5-17.0) ng/L Total Protein (6.5-8.0) g/dL Albumin (3.5-5.0) g/dL Beta HCG, Quant mIU/mL Critical Care Time Critical Care Time Critical Care Time: Yes Total Critical Care Time: 60 Attestation: I have personally provided critical care time. Time includes review of lab data, radiology results, discussion with consultants, and monitoring for potential decompensation. Intervention performed as documented. Discharge Plan Discharge Clinical Impression: UTI (urinary tract infection), Nausea & vomiting Patient Disposition: Home, Self-Care Instructions: Urinary Tract Infection in Women (ED), Acute Nausea and Vomiting (ED) Additional Instructions: Please follow-up with your primary care physician tomorrow. If you have any worsening or new symptoms, please return to the emergency room or call 911 Prescriptions: New levofloxacin 500 mg tablet 500 mg PO DAILY Qty: 9 0RF ondansetron HCl 4 mg tablet 4 mg PO Q6H PRN (Reason: nausea and vomiting) Qty: 10 0RF No Action omeprazole magnesium [Prilosec OTC] 20 mg tablet,delayed release (DR/EC) 20 mg PO DAILY Qty: 30 0RF ondansetron 4 mg tablet,disintegrating 4 mg PO Q6-8H PRN (Reason: nausea and vomiting) Qty: 7 0RF omeprazole 20 mg capsule,delayed release(DR/EC) 20 mg PO DAILY Qty: 30 0RF omeprazole 10 mg capsule,delayed release(DR/EC) 10 mg PO DAILY Qty: 14 0RF ondansetron 4 mg tablet,disintegrating 4 mg PO ONCE PRN (Reason: nausea and vomiting) Qty: 10 0RF ibuprofen 600 mg tablet 600 mg PO Q6H PRN (Reason: pain) Qty: 30 0RF cyclobenzaprine 5 mg tablet 5 mg PO TID PRN (Reason: muscle spasm) Qty: 10 0RF
[2023-01-06 16:40] VITALS: BP 107/62; PULSE 81; RESP 16; TEMP 36.3; O2SAT 99; BMI 20.4
--- NOTE | 2023-01-06 16:41 | ECG_ITS ---
Test Reason : DIZZINESS Blood Pressure : / mmHG Vent. Rate : 076 BPM Atrial Rate : 076 BPM P-R Int : 126 ms QRS Dur : 092 ms QT Int : 348 ms P-R-T Axes : 072 082 067 degrees QTc Int : 391 ms Normal sinus rhythm with sinus arrhythmia Normal ECG When compared with ECG of 25-NOV-2022 18:03, No significant change was found Referred By: Solange Smiley Electronically Signed By:Mauricio Noel
--- NOTE | 2023-01-06 16:52 | MHC.EDTECH ---
Labs collected and sent
[2023-01-06 17:24] LABS: MANUAL DIFF FLAG NO
[2023-01-06 17:51] LABS: Basophils Percent Auto 0.2 % (0-2); Eosinophils Absolute Auto 0.1 X10*3/uL (0.0-0.4); Eosinophils Percent Auto 0.9 % (0-4); Hematocrit 42.4 % (37.0-47.0); Imm Gran Abs Auto 0.03 X10*3/uL (0.00-0.03); Imm Gran Pct Auto 0.3 % (0.0-0.4); Lymphocytes Absolute Auto 1.8 X10*3/uL (1.2-4.9); Lymphocytes Percent Auto 17.1 % (20-40); Mean Corpuscular Volume 93.8 fL (80.0-98.0); Mean Platelet Volume 11.5 fL (9.4-12.3); Monocytes Absolute Auto 0.9 X10*3/uL (0.1-1.2); Monocytes Percent Auto 8.9 % (2-11); Neutrophils Absolute Auto 7.7 x10*3/uL (2.0-8.3); Neutrophils Percent Auto 72.6 % (45-73); Platelet Count 214 X10*3/uL (160-400); Red Blood Count 4.52 X10*6/uL (4.20-5.50); Red Cell Distribution Width 11.8 % (11.0-16.0); White Blood Count 10.6 X10*3/uL (4.8-10.8)
[2023-01-06 17:58] LABS: Troponin-I High Sensitivity < 2.7 ng/L (<3.5-17.0)
[2023-01-06 18:06] LABS: Alanine Aminotransferase 11 U/L (0-31); Alkaline Phosphatase 59 U/L (39-117); Anion Gap 10 (12-20); Aspartate Amino Transferase 16 U/L (5-31); Bilirubin Total 0.7 mg/dL (0.0-1.0); Blood Urea Nitrogen 10 mg/dL (9-16); Calcium 8.7 mg/dL (8.4-10.2); Carbon Dioxide 27 mmol/L (22-29); Chloride 107 mmol/L (96-108); Creatinine Clr Calc Pharmacy 101.7; Estimated Glomerular Filt Rate > 60; Glucose Random 57 mg/dL (60-115); HCG Quantitative < 2 mIU/mL; Magnesium 2.1 mg/dL (1.6-2.6); Potassium 3.7 mmol/L (3.3-5.1); Sodium 140 mmol/L (135-145); Total Protein 6.7 g/dL (6.5-8.0)
[2023-01-06 20:00] VITALS: BP 108/78; PULSE 69; RESP 16; TEMP 37.1; O2SAT 98
[2023-01-06 20:08] LABS: Glucose, Whole Blood 75 mg/dL (60-115)
--- NOTE | 2023-01-06 20:39 | MHC.EDTECH ---
PATIENT URINE SAMPLE COLLECTED AND SENT TO LAB .
[2023-01-06] MEDS: ondansetron HCL 4 MG/2 ML VIAL IVPUSH (20:48)
[2023-01-06] MEDS: 0.9 % Sodium Chloride 1,000 ML 999 ML IVCONT (20:48)
[2023-01-06 21:05] LABS: Appearance Urine Cloudy; Color Urine RED; Glucose Urine UA 100 mg/dL (Negative); Leukocyte Esterase Urine Large (3+) (Negative); Nitrite Urine Positive (Negative); PH 6.5 (5.0-9.0); UMIC TRIGGER UACC YES; Urine Blood Large (3+) (Negative); Urine Ketones 15 mg/dL (Negative); Urine Protein 300 (3+) mg/dL (Neg-Trace)
[2023-01-06 21:11] LABS: Bacteria Urine 3+ (None Seen); Hyaline Casts Urine 0-2 /LPF (0-2); RBC Urine >20 /HPF (0-2); UACC Culture Trigger YES; WBC Urine >50 /HPF (0-5)
[2023-01-06] MEDS: levoFLOXacin 500 MG TABLET PO (21:49)
== END 2023-01-06 21:53 | disposition home or self-care (01) ==
PROVIDERS: Physician Assistant Medical; Emergency Provider Emergency Medicine
DX: N39.0 Urinary tract infection, site not specified (principal); B95.1 Streptococcus, group B, as the cause of diseases classified elsewhere; R11.2 Nausea with vomiting, unspecified; Z79.899 Other long term (current) drug therapy
CPT/HCPCS: 36415; 80053; 81001; 82947; 83735; 84484; 84702; 85025; 87086; 87147; 93005; 96361; 96374; 99284; J2405

== ENCOUNTER → 2023-01-06 16:41 | Outpatient (BNV) | payer MEDICAID, SELFPAY | PROVIDERS: Emergency Provider Emergency Medicine; Visit Provider Internal Medicine Cardiovascular Disease | DX: I49.9 Cardiac arrhythmia, unspecified (principal) | CPT/HCPCS: 93010 ==

== ENCOUNTER 2024-06-18 13:15 | Outpatient (REF) | payer MEDICAID, SELFPAY ==
[2024-06-20 08:28] LABS: Trichomonas vaginalis RNA NOT DETECTED (NOT DETECTED)
== END 2024-06-18 13:16 | disposition home or self-care (01) ==
LOC: HO.HHCLNP 13:15
PROVIDERS: Visit Provider Emergency Medicine
DX: Z71.1 Person with feared health complaint in whom no diagnosis is made (principal)
CPT/HCPCS: 36415; 87255; 87661

== ENCOUNTER 2024-10-07 11:04 | Outpatient (REF) | payer MEDICAID, SELFPAY ==
--- OUTSIDE RECORDS SUMMARY | 2024-10-07 12:35 | XMS_ITS | Encounter Summary ---
Author Organization [employer] [facility] Address [address] [place] [address] Care Team Providers Care Market Development Manager Name Role Phone Carley Spann Primary Care Provider Reason for Visit * Reason Onset Date Comments Appointment 08/14/2022 Encounter Details Date Type Department Care Team ([facility] st Contact Info) Description 08/14/2022 Telephone [facility] [address] [place] [address] Claire Lowe DDS [address] [place] [address] Appointment Social History Tobacco Use Types Packs/Day Years Used Date Smoking Tobacco: Never Assessed Comments Unknown Sex and Gender Information Value Date Recorded Sex Assigned at Female 04/01/2022 10:16 AM EDT Legal Sex Female 10:16 AM EDT Gender Identity Female 04/01/2022 10:16 AM EDT Sexual Orientation Straight 04/01/2022 10 :16 AM EDT documented as of this encounter Miscellaneous Notes * Telephone Encounter - Tiarra Rueda - 08/14/2022 11:04 AM EDT Patient has been on waiting list 01/2021 for comp exam and is looking to be scheduled. The request is on Viktoria HALL documented in this encounter Plan of Treatment Not on file documented as of this encounter Visit Diagnoses Not on filedocumented in this encounter Care Teams Market Development Manager Relationship Specialty Start Date End Date Carley Spann FNP [address] [place] [address] PCP - General Family Medicine 12/09/21 documented as of this encounter
--- OUTSIDE RECORDS SUMMARY | 2024-10-07 12:35 | XMS_ITS | Clinical Summary ---
Author Organization [employer] Address [address] [facility] 7[address] [place] [address] Care Team Providers Care Italian Tutor Name Role Phone Carley Spann HECTOR Primary Care Provider [phone] Allergies Active Allergy Reactions Criticality Noted Date Comments Amoxicillin 02/08/2015 Other reaction(s): rash Penicillins 11/06/2022 Medications cyclobenzaprine (Flexeril) 5 MG tablet TAKE 1 TABLET BY MOUTH THREE TIMES A DAY NEEDED FOR MUSCLE SPASM 3 Active ibuprofen 600 MG tablet Take 1 tablet by mouth every 6 (six) hours if needed. 3 Active fluticasone (Flonase Allergy Relief) 50 MCG/ACT nasal spray Administer 2 sprays into each nostril 2 times daily. 16 g 3 3 Active Additional Information Patient not taking.Reported on 04/28/2023 albuterol 108 (90 Base) MCG/ACT inhaler Inhale 2 puffs every 4 (four) hours if needed for wheezing or shortness of breath. 18 g 1 5 06/18/19 26 Active Spacer/Aero-Hol ding Chambers (OptiChamber [place]) misc 1 each every 4 (four) hours if needed (asthma). 1 each 5 Active metroNIDAZOLE (Metrogel) 0.75 % gel Apply topically 2 times daily. 45 g 5 10/08/19 26 Active Active Problems Problem Noted Date Diagnosed Date Dental calculus 04/28/2023 Viral URI 09/10/2022 Acute low back pain 09/10/2022 Mixed anxiety and depressive disorder 09/10/2022 Weight loss 10/30/2018 Amblyopia of left eye 06/26/2017 Congenital exotropia of left eye 06/26/2017 Myopia 02/09/2016 Resolved Problems Problem Noted Date Diagnosed Date Resolved Date Tobacco dependence 06/18/2024 Encounters Date Type Department Care Team Description 10/07/2024 10:00 AM EDT [facility] [place] [address] Vaginal discharge (Primary Dx); Screening examination for STI 10/07/2024 Travel from Last 3 Months Immunizations Name Administration Dates Next Due DTaP 07/26/2004, 1,04/03/2000,02/15/2000,0 1999 HPV 9-Valent 02/09/2016,02/08/2015 HPV, Quadrivalent 02/02/2014 Hep A, ped/adol, 2 dose 02/08/2015,02/02/2014 Hep B, Adolescent or Pediatric 06/23/2000,1999,1999 HiB, unspecified 02/15/2000 Hib (HbOC) 12/11/2000,04/03/2000,1999 IPV 07/26/2004,12/11/2000,02/15/2000 ,1999 Influenza, IIV3, injectable 02/01/2011 MMR 07/26/2004,09/11/2000 Meningococcal MCV4P ACYW-135 02/09/2016,02/03/20 14 Pneumococcal Conjugate PCV 7 12/11/2000,06/22/19,04/03/2000,02/15/2000 Tdap 01/08/2012 Varicella 01/08/2012,09/11/2000 Family History Medical History Relation Name Comments Diabetes Father's Sister Amblyopia Mother Strabismus Mother Relation Name Status Comments Father's Sister Mother Social History Tobacco Use Types Packs/Day Years Used Date Smoking Tobacco: Every Day Cigarettes Passive Smoke Exposure: Current Smokeless Tobacco: Current Tobacco Cessation:Ready to Q uit: Not Asked; Counseling Given: Not Answered Comments Unknown Sex and Gender Information Value Date Recorded Sex Assigned at Female 04/01/2022 10:16 AM EDT Legal Sex Female 10:16 AM EDT Gender Identity Female 04/01/2022 10:16 AM EDT Sexual Orientation Straight 04/01/2022 10 :16 AM EDT Last Filed Vital Signs Vital Sign Reading Time Taken Comments Blood Pressure 111/65 10/07/2024 10:19 AM EDT Pulse 76 10/07/2024 10:19 AM EDT Temperature 37.3 ??C (99.1 ??F) 10/07/2024 10:19 AM E DT Respiratory Rate 17 10/07/2024 10:19 AM EDT Oxygen Saturation 98% 10/07/2024 10:19 AM EDT Inhaled Oxygen Concentration - - Weight 72 kg (158 lb 12.8 oz) 10/07/2024 10:19 A M EDT Height 168 cm (5' 6.13 ) 10/25/2021 12:05 AM EDT Body Mass Index 25.53 10/25/2021 12:05 AM EDT Plan of Treatment Health Maintenance Due Date Last Done Comments Depression Screening 1999 HIV Screening 1999 Lipid Panel 1999 SDOH Screening 1999 Alcohol/Substance Use Screening 2011 Family Planning (PISQ) 09/07/2014 Hepatitis C Screening 09/07/2017 Pneumococcal Vaccine: Pediatrics (0 to 5 Years) and At-Risk Patients (6 to 49) Years) (1 of 2 - PCV) 09/07/2018 12/11/2000, 06/22/2000, 04/03/2000, Additional history exists Pap Smear 09/07/2020 DTaP/Tdap/Td Vaccines (7 - Td or Tdap) 01/07/2022 01/08/2012, 07/26/2004, 04/13/2001, Additional history exists Dental Oral Exam 08/01/2023 01/30/2023, , 06/08/2015 Dental Prophylaxis 10/28/2023 04/28/2023, 1 , 06/08/2015, Additional history exists COVID-19 Vaccine ( - season) 2024 Dental X-Ray: Bitewings 02/01/2024 01/31/20 23, 12/20/2022, 10/17/2022, Additional history exists Influenza Vaccine (#1) 2024 02/01/2011 Tobacco Screening 06/18/2025 06/18/2024 Dental X-Ray: Full Mouth 01/31/2026 01/30/2023, 07/03 Zoster Vaccines (1 of 2) 09/07/2049 RSV Patients and Patients Aged 60 years or older (1 - 1-dose 75+ series) 09/07/2074 Hepatitis B Vaccines Completed 06/23/2000, 1999, 1999 HIB Vaccines Completed 12/11/2000, 07/1999, 02/15/2000, Additional history exists IPV Vaccines Completed 07/26/2004, 11/30, 02/15/2000, Additional history exists Hepatitis A Vaccines Completed 02/08/2015, 02/03/20 14 HPV Vaccines Completed 02/09/2016, 01/2015, 02/02/2014 Meningococcal Vaccine Completed 02/09/2016, 014 RSV under 20 months Aged Out No longe r eligible based on patient's age to complete this topic Rotavirus Vaccines Aged Out No longer eligible based on patient's age to complete this topic Procedures Procedure Name Priority Date/Time Associated Diagnosis Comments PROPHYLAXIS - ADULT Routine 04/28/2023 3 :00 PM EST Dental calculus INTRAORAL - COMPLETE SERIES OF RADIOGRAPHIC IMAGES Routine 01/30/2023 1:30 PM EDT COMPREHENSIVE ORAL EVALUATION - NEW OR ESTABLISHED PATIENT Routine 01/30/2023 1:30 PM EDT from Last 3 Months or Most Recently Relevant to Health Maintenance [facility] - [facility] PARTIAL (MEDICAID) Care Teams Italian Tutor Relationship Specialty Start Date End Date Carley Spann FNP [address] [place] [address] PCP - General Family Medicine 12/09/21
--- OUTSIDE RECORDS SUMMARY | 2024-10-07 12:35 | XMS_ITS | Encounter Summary ---
Author Organization [employer] Address [address] [facility] 7[address] [place] [address] Care Team Providers Care Frame Changer Name Role Phone Carley Spann HECTOR Primary Care Provider [phone] Reason for Visit * Reason Comments std testing Encounter Details Date Type Department Care Team ([facility] st Contact Info) Description 10/07/2024 10:00 AM EDT Office Visit [facility] [address] [place] [address] Vaginal discharge (Primary Dx); Screening examination for STI Social History Tobacco Use Types Packs/Day Years Used Date Smoking Tobacco: Every Day Cigarettes Passive Smoke Exposure: Current Smokeless Tobacco: Current Comments Unknown Sex and Gender Information Value Date Recorded Sex Assigned at Female 04/01/2022 10:16 AM EDT Legal Sex Female 10:16 AM EDT Gender Identity Female 04/01/2022 10:16 AM EDT Sexual Orientation Straight 04/01/2022 10 :16 AM EDT documented as of this encounter Last Filed Vital Signs Vital Sign Reading [...] oz) 10/07/2024 10:19 A M EDT Height - - Body Mass Index 25.53 10/25/2021 12:05 AM EDT documented in this encounter Plan of Treatment Scheduled Orders Name Type Priority Associated Diagnoses Orde r Schedule Chlamydia/N. Gonorrhoeae RNA, TMA, Urogenitial Microbiology Routine Vaginal discharge Ordered: 10/07/2024 Chlamydia/N. Gonorrhoeae RNA, TMA, Throat Microbiology Routine Vaginal discharge Ordered: 10/07/2024 Bacterial Vaginosis Panel Microbiology Routine Vaginal discharge Ordered: 10/07/2024 Hepatitis B surface antigen, EIA Lab Routine Vaginal discharge Screening examination for STI Expected: 10/07/2024 (Approximate), Expires: 10/07/2025 HIV-1/2 Antigen and Antibodies, Fourth Generation, with Reflexes Lab Routine Vaginal discharge Screening examination for STI Expected: 10/07/2024 (Approximate), Expires: 10/07/2025 Hepatitis C Antibody with Reflex to HCV, RNA, Quantitative, Real-Time PCR Lab Routine Vaginal discharge Screening examination for STI Expected: 10/07/2024, Expires: 10/07/2025 RPR (Monitor) with Reflex to??Titer Lab Routine Vaginal discharge Screening examination for STI Expected: 10/07/2024, Expires: 10/07/2025 Hepatitis B Surface Antibody, Qualitative Lab Routine Vaginal discharge Screening examination for STI Expected: 10/07/2024 (Approximate), Expires: 10/07/2025 Herpes Simplex Virus 1 and 2 (IgG), Type-Specific Antibodies Lab Routine Vaginal discharge Screening examination for STI Expected: 10/07/2024 (Approximate), Expires: 10/07/2025 Culture, Urine, Routine Microbiology Routine Vaginal discharge Ordered: 10/07/2024 documented as of this encounter Visit Diagnoses Diagnosis Vaginal discharge- Primary Leukorrhea, not specified as infective Screening examination for STI documented in this encounter Care Teams Frame Changer Relationship Specialty Start Date End Date Carley Spann FNP [address] [place] [id number] PCP - General Family Medicine 12/09/21 documented as of this encounter
--- OUTSIDE RECORDS SUMMARY | 2024-10-07 12:35 | XMS_ITS | Encounter Summary ---
Author Organization [employer] Address [address] [facility] 7t [place] [address] Care Team Providers Care Strategic Sourcing Specialist Name Role Phone Carley Spann Primary Care Provider [phone] Encounter Details Date Type Department Care Team (Latest Contact Info) Description 10/07/2024 Travel Social History Tobacco Use Types Packs/Day Years [...] AM EDT documented as of this encounter Plan of Treatment Not on file documented as of this encounter Visit Diagnoses Not on filedocumented in this encounter Care Teams Strategic Sourcing Specialist Relationship Specialty Start Date End Date Carley Spann FNP [address] [place] [id number] PCP - General Family Medicine 12/09/21 documented as of this encounter
[2024-10-07 15:04] LABS: HBsAGNum1 0.31 S/CO (0.00-0.99); HIV AB/AG Nonreactive (Nonreactive); HIV Num 1 0.05 S/CO (0.00-0.99); Hepatitis B Surface Antigen Negative (Negative); ~HepC Num1 0.11 S/CO (0.00-0.79); ~Hepatitis B Surface Antibody NONREACTIVE (Nonreactive); ~Hepatitis C Antibody Nonreactive (Nonreactive)
[2024-10-08 11:24] LABS: Bacterial Vaginosis PCR POSITIVE (Negative); Candida Group PCR NOT DETECTED (Not Detect); Candida glab krusei PCR NOT DETECTED (Not Detect); Trichomonas vaginalis PCR NOT DETECTED (Not Detect)
[2024-10-08 11:57] LABS: CT PCR NOT DETECTED (Not Detect.); NG PCR NOT DETECTED (Not Detect.)
[2024-10-08 18:28] LABS: Herpes Simplex Type 2 IgG <0.90 index
[2024-10-11 08:39] LABS: C. Trachomatis RNA TMA, Throat NOT DETECTED; N. gonorrhoeae RNA TMA, Throat NOT DETECTED
[2024-10-11 14:38] LABS: RPR Rapid Plasma Reagin NON-REACTIVE (NON-REACTIVE)
== END 2024-10-07 11:05 | disposition home or self-care (01) ==
LOC: HO.HHCL 11:04
PROVIDERS: Visit Provider Family Medicine
DX: N89.8 Other specified noninflammatory disorders of vagina (principal); Z11.3 Encounter for screening for infections with a predominantly sexual mode of transmission
CPT/HCPCS: 36415; 81515; 86592; 86695; 86696; 86706; 86803; 87086; 87088; 87186; 87340; 87389; 87491; 87591

== ENCOUNTER 2025-01-10 06:56 | Emergency (ER) | payer MEDICAID, SELFPAY ==
--- NOTE | ~2025-01-10 | US_ITS ---
EXAMINATION: US FIRST TRIMESTER OB HISTORY: abd pain, +, LMP 12/07/24 TECHNIQUE: Endovaginal scanning was performed. FINDINGS: There is a single intrauterine gestational sac and yolk sac. The mean sac diameter is 0.61 cm. No pole is seen at this time. AUA = 5 weeks 1 days PITO(AUA) = 09/11/2025 LMP = 12/07/2024 GA(LMP) = 4 weeks 6 days PITO(LMP) = 09/13/2025 Yolk Sac: seen Right ovary: The right ovary measures 1.3 x 2.0 x 2.2 cm and is unremarkable. Left ovary: The left ovary is not identified. Cul-de-sac: No free fluid US/US OB pelvic and transvaginal IMPRESSION: Single, intrauterine of estimated gestational age 5 weeks, 1 day. No pole is seen at this time. Follow-up is recommended. Electronically signed by: Pancho Mendez MD 01/10/2025 11:07 AM EDT
[2025-01-10 06:58] VITALS: BP 120/61; PULSE 69; RESP 18; TEMP 37.1; O2SAT 98; BMI 22.1
[2025-01-10 07:34] LABS: MANUAL DIFF FLAG NO
--- OUTSIDE RECORDS SUMMARY | 2025-01-10 07:35 | XMS_ITS | Clinical Summary ---
Author Organization [facility] Address [address] [address] Phone Care Team Providers Care Culture Media Laboratory Assistant Name Role Phone Pcp, Unknown Primary Care Provider Unavailabl e Allergies No known active allergies Medications No known medications Social History Tobacco Use Types Packs/Day Years Used Date Smoking Tobacco: Never Smokeless Tobacco: Never Tobacco Cessation:Counseling Given: Not Answered Alcohol Use Standard Drinks/Week Comments Not Currently 0 (1 standard drink = 0.6 oz pur e alcohol) Education Answer Date Recorded Are you interested in more education? Not on toshia e 05/08/2023 Are you concerned about learning? Not on file 05/08/2023 No 05/08/2023 No 05/08/2023 Digital Access Answer Date Recorded No 05/08/2023 No 05/08/2023 Reliable internet access at home? Not on file 05/08/2023 Device with a working camera? Not on file Intimate Partner Violence Answer Date R ecorded Are you denied basic needs s uch as food, clothing, or medical care? No 05/08/2023 In the past 12 months have y ou been in a relationship with a person who hurts, threatens, or tries to control you? No 05/08/2023 Are you denied basic needs s uch as food, clothing, or medical care? No 05/08/2023 In the past 12 months have y ou been in a relationship with a person who hurts, threatens, or tries to control you? No 05/08/2023 Comments No Sex and Gender Information Value Date Recorded Sex Assigned at Female 05/08/2023 5:01 PM EST Legal Sex Female 3:51 PM EST Gender Identity Female 05/08/2023 5:01 PM EST Sexual Orientation Not on file Last Filed Vital Signs Vital Sign Reading Time Taken Comments Blood Pressure 122/75 05/08/2023 4:58 PM EST Pulse 65 05/08/2023 4:58 PM EST Temperature 36.7 C (98.1 F) 05/08/2023 4:58 PM EST Respiratory Rate 18 05/08/2023 6:59 PM EST Oxygen Saturation 100% 05/08/2023 4:58 PM EST Inhaled Oxygen Concentration - - Weight 63.5 kg (140 lb) 05/08/2023 4:58 PM EST Height 170.2 cm (5' 7 ) 05/08/2023 4:58 PM EST Body Mass Index 21.93 05/08/2023 4:58 PM EST Plan of Treatment Health Maintenance Due Date Last Done Comments DEPRESSION SCREENING 2011 SMOKING Hx and SMOKELESS TOB ACCO SCREENING 09/07/2012 HPV VACCINES (1 - 3-dose series) 09/07/2014 HEPATITIS C SCREENING 09/07/2017 HIV ONE-TIME SCREENING (18-6 5 YEARS) 09/07/2017 PAP SMEAR 09/07/2020 Adult Td,Tdap Booster 01/07/2022 01/08/2012 COVID-19 VACCINE ( - 2023-2 5 season) 2024 HEPATITIS A VACCINES Aged Out No long er eligible based on patient's age to complete this topic HIB VACCINES Aged Out No longer eligi ble based on patient's age to complete this topic MENINGOCOCCAL VACCINES (ACWY) Aged Out No longer eligible based on patient's age to complete this topic MENINGOCOCCAL VACCINES (B) Aged Out N o longer eligible based on patient's age to complete this topic PNEUMOCOCCAL VACCINES (0-49 years) Aged Out No longer eligible based on patient's age to complete this topic Medical Devices Not on file Insurance [facility] [place] [id number] Care Teams Culture Media Laboratory Assistant Relationship Specialty Start Date End Date Pcp, Unknown PCP - General 05/08/23 Additional Source Comments The information contained in this document represents components of the legal health record. It is not the complete legal health record.[facility]
--- OUTSIDE RECORDS SUMMARY | 2025-01-10 07:35 | XMS_ITS | Encounter Summary ---
Author Organization [employer] [facility] Address [address] [place] [address] [place] [address] Care Team Providers Care Stations Superintendent Name Role Phone Carley Spann Primary Care Provider [phone] Reason for Visit * Reason Onset Date Comments Appointment 08/14/2022 Encounter Details Date Type Department Care Team ([facility] st Contact Info) Description 08/14/2022 Telephone [facility] [address] [place] [address] Claire Lowe, DDS [address] [place] [address] Appointment Social History Tobacco Use Types Packs/Day [...] on filedocumented in this encounter Care Teams Stations Superintendent Relationship Specialty Start Date End Date Carley Spann FNP [address] [place] [address] PCP - General Family Medicine 12/09/21 documented as of this encounter
[2025-01-10 07:41] LABS: Hematocrit 42.1 % (37.0-47.0); Hemoglobin 14.7 g/dl (12.0-16.0); Imm Gran Abs Auto 0.03 X10*3/uL (0.00-0.03); Imm Gran Pct Auto 0.3 % (0.0-0.4); Lymphocytes Absolute Auto 1.8 X10*3/uL (1.2-4.9); Mean Corpuscular HGB Conc 34.9 g/dl (31.0-35.0); Mean Corpuscular Hemoglobin 31.5 pg (27.0-33.0); Mean Corpuscular Volume 90.3 fL (80.0-98.0); NRBC Abs Auto 0.000 X10*3/uL (0.0-0.012); NRBC Pct Auto 0.0 /100WBC (0.0-0.2); Platelet Count 248 X10*3/uL (160-400); Red Blood Count 4.66 X10*6/uL (4.20-5.50); White Blood Count 9.5 X10*3/uL (4.8-10.8)
[2025-01-10 08:08] LABS: Alanine Aminotransferase 12 U/L (0-31); Albumin Level 4.4 g/dL (3.5-5.0); Alkaline Phosphatase 72 U/L (39-117); Anion Gap 12 (12-20); Aspartate Amino Transferase 27 U/L (5-31); Blood Urea Nitrogen 10 mg/dL (9-16); Calcium 8.9 mg/dL (8.4-10.2); Carbon Dioxide 24 mmol/L (22-29); Chloride 108 mmol/L (96-108); Creatinine Clr Calc Pharmacy 122.9; Estimated Glomerular Filt Rate > 60; Lipase 33 U/L (8-78); Potassium 4.2 mmol/L (3.3-5.1); Sodium 140 mmol/L (135-145); Total Protein 7.5 g/dL (6.5-8.0)
--- NOTE | 2025-01-10 08:16 | ED_ITS ---
HPI - Abdominal Pain General Chief Complaint: Abdominal Pain Stated Complaint: abd pain Time Seen by Provider: 01/10/25 08:07 Source: patient Mode of arrival: ambulatory Limitations: no limitations History of Present Illness ED Provider: Selena Mendieta PA-C HPI narrative: 24 yo female with LMP 12/07/24 presents to the ER after she tested positive with a home test for evaluation of diffuse lower abdominal pains since yesterday, along with cough and SOB for the last 1 week. She states she tested positive for at home on January 05. She has had cough and shortness of breath since then. She attributes this to being a former heavy smoker. She has some chest congestion and phlegm. She had a subjective fever at home a week ago but none since. She denies any associated chest pain. She reports she has had some diffuse lower abdominal cramping and pain since yesterday. It comes and goes. It is not associated with any vaginal bleeding or discharge. It is not on 1 side more than the other. She does not have an OBGYN. She has never been before. MD elicited complaint: abdominal pain Onset (ago): hour(s) Pain Consistency: intermittent Location: RLQ, LLQ and suprapubic Severity: moderate Quality: cramping Radiation: none Migration to: no migration Exacerbating factors: nothing Relieving factors: nothing Associated symptoms: nausea and fever Related Data Date of Last Menstrual Period: 12/07/24 Patient : Yes Previous Rx's ?Medication ?Instructions ?Recorded omeprazole magnesium 20 mg 20 mg PO DAILY #30 tabs 09/19 tablet,delayed release (Prilosec OTC) ondansetron 4 mg disintegrating 4 mg PO Q6-8H PRN naus ea and 05/05/20 tablet vomiting #7 tabs omeprazole 20 mg capsule,delayed 20 mg PO DAILY #30 ca ps 08/01/21 release omeprazole 10 mg capsule,delayed 10 mg PO DAILY #14 ca ps 11/19/21 release ondansetron 4 mg disintegrating 4 mg PO ONCE PRN nause a and 11/19/21 tablet vomiting #10 tabs cyclobenzaprine 5 mg tablet 5 mg PO TID PRN muscle spa sm #10 12/02/22 tabs ibuprofen 600 mg tablet 600 mg PO Q6H PRN pain #30 t abs 12/02/22 levofloxacin 500 mg tablet 500 mg PO DAILY #9 tabs 12/22 ondansetron HCl 4 mg tablet 4 mg PO Q6H PRN nausea and 01/06/23 vomiting #10 tabs Allergies Allergy/AdvReac Type Severity Reaction Status Date / Time Penicillins (PENICILLINS) Allergy Unknown UNKNOWN Verified 01/10/25 07:00 Review of Systems Review of Systems Yes all other systems are reviewed and are negative [facility] Past Medical History Medical History No known health problems Date of Last Menstrual Period: 12/07/24 Social History Social History Alcohol intake: never Advance Directives: No Advance Directives Information Provided: Yes Do you have a plan to hurt others: No Plan Patient : Yes Physical Exam ED Exam Exam: Appearance: Alert. Oriented X3. No acute distress. Head: normocephalic, atraumatic. Eyes: Pupils equal, round and reactive to light. ENT: Pharynx normal. No tonsillar swelling or exudate. Neck: Normal inspection. Neck supple. CVS: Normal heart rate and rhythm. Pulses normal. Respiratory: No respiratory distress. Breath sounds normal. Congested cough Abdomen: Soft with mild lower abdominal tenderness throughout, no rebound or guarding, normal active +BS x4 Skin: Skin warm and dry. Normal skin color. Normal skin turgor. No rashes. Extremities: No lower extremity edema. No joint swelling. Neuro/psych: Oriented X 3. grossly normal, nonfocal. Normal speech and cognition. Vital Signs: Vital Signs - 24 hr 01/10/25 06:58 01/10/25 10:52 01/10/25 11:55 Temperature 98.8 F 98.1 F 98.1 F Pulse Rate 69 58 58 Respiratory Rate 18 18 18 Blood Pressure 120/61 105/63 105/63 Pulse Oximetry 98 99 99 Oxygen Delivery Method Room Air Room Air Room Air BMI result Body Mass Index 22.1 Medical Decision Making Medical Decision Making MDM Narrative: 24-year-old female who has ever been before presents to the ER for evaluation after she had a positive test at home last week. She has been having some lower abdominal pains without any bleeding. She also has had some shortness of breath and cough for the last week or so. She has some chest congestion in his a former smoker. No fever or chills. Lungs are clear on exam. Low suspicion for PE. Labs show hCG 5500. Ultrasound is showing a single IUP with no pole. Dating 5 days 1 week. Results discussed with the patient including concern for early miscarriage, she will need to follow-up with OBGYN. [facility] and [facility]. She is stable for discharge home. return precautions and miscarriage precautions discussed. patient expressed understanding and all questions were answered. Differential Diagnosis Differential Diagnoses: The differential diagnosis associated with the presentation includes early , early miscarriage, blighted ovum, ectopic , viral illness Lab Data MDM Lab Attestation statement: I reviewed the patient's lab results. no anemia, elevated beta HCG c/w 1st trimester 01/10/25 07:27 01/10/25 07:27 Labs: Lab Results 01/10/25 01/10/25 Range/Units 07:27 11:01 WBC 9.5 (4.8-10.8) X10*3/uL RBC 4.66 (4.20-5.50) X10*6/uL Hgb 14.7 (12.0-16.0) g/dl Hct 42.1 (37.0-47.0) % MCV 90.3 (80.0-98.0) fL MCH 31.5 (27.0-33.0) pg MCHC 34.9 (31.0-35.0) g/dl RDW 11.8 (11.0-16.0) % Plt Count 248 (160-400) X10*3/uL MPV 10.7 (9.4-12.3) fL Immature Gran % (Auto) 0.3 (0.0-0.4) % Neut % (Auto) 69.7 (45-73) % Lymph % (Auto) 19.0 L (20-40) % [place] % (Auto) 8.9 (2-11) % Eos % (Auto) 1.9 (0-4) % Baso % (Auto) 0.2 (0-2) % Lymph # (Auto) 1.8 (1.2-4.9) X10*3/uL [place] # (Auto) 0.9 (0.1-1.2) X10*3/uL Eos # (Auto) 0.2 (0.0-0.4) X10*3/uL Baso # (Auto) 0.0 (0.0-0.2) X10*3/uL Abs Immat Gran (auto) 0.03 (0.00-0.03) X10*3/uL Absolute Neuts (auto) 6.6 (2.0-8.3) x10*3/uL Absolute Nucleated RBC 0.000 (0.0-0.012) X10*3/uL Nucleated RBC % (auto) 0.0 (0.0-0.2) /100WBC Sodium 140 (135-145) mmol/L Potassium 4.2 (3.3-5.1) mmol/L Chloride 108 (96-108) mmol/L Carbon Dioxide 24 (22-29) mmol/L Anion Gap 12 (12-20) BUN 10 (9-16) mg/dL Creatinine 0.68 (0.5-1.4) mg/dL Estim Creat Clear Calc 122.9 Estimated GFR > 60 Random Glucose 92 (60-115) mg/dL Calcium 8.9 (8.4-10.2) mg/dL Total Bilirubin 0.5 (0.0-1.0) mg/dL AST 27 (5-31) U/L ALT 12 (0-31) U/L Alkaline Phosphatase 72 (39-117) U/L Total Protein 7.5 (6.5-8.0) g/dL Albumin 4.4 (3.5-5.0) g/dL Lipase 33 (8-78) U/L Beta HCG, Quant 5133 mIU/mL Urine Color Yellow Urine Appearance Cloudy Urine pH 6.0 (5.0-9.0) Ur Specific [place] 1.025 (1.005-1.025) Urine Protein Negative (Neg-Trace) mg/dL Urine Glucose (UA) Negative (Negative) mg/dL Urine Ketones 80 (Negative) mg/dL Urine Blood Negative (Negative) Urine Nitrite Negative (Negative) Ur Leukocyte Esterase Trace H (Negative) Urine RBC 0-2 (0-2) /HPF Urine WBC 6-10 (0-5) /HPF Ur Squamous Epith Cells >20 (0-2) /HPF Urine Bacteria 1+ (None Seen) Hyaline Casts 0-2 (0-2) /LPF Influenza Type A (PCR) NEGATIVE (Negative) Influenza Type B (PCR) NEGATIVE (Negative) RSV RNA Qual (PCR) NEGATIVE (Negative) SARS-CoV-2 RNA (RT-PCR) NEGATIVE (Negative) Independent Interpretation I performed an independent interpretation of an: Ultrasound Interpretation: IUP seen without pole, agree w/ radiology read Radiology Impression Discussion of test interpretation with radiology: I have reviewed the radiologist's reading. External Record Review External record reviewed: Prior outpatient labs Social Determinants Patient?s care significantly limited by Social Determinants of Health including: Other Social Determinant of Health (does not have [employer] provider, [facility] Critical Care Time Critical Care Time Critical Care Time: No Discharge Plan Discharge Clinical Impression: Qualifiers: Weeks of gestation: less than 8 weeks Qualified Code(s): Z3A.01 - Less than 8 weeks gestation of Patient Disposition: Home, Self-Care Instructions: (ED) Additional Instructions: Your labs showed an elevated hormone of 5133. Your ultrasound showed a single intrauterine with no pole. This could be because it is too early in do detect a pole, or it could be due to an early miscarriage. It is important to follow-up with OBGYN for repeat labs and ultrasound. If you develop new or worsening symptoms call 911 or come back to the ER for further evaluation. US/US OB pelvic and transvaginal IMPRESSION: Single, intrauterine of estimated gestational age 5 weeks, 1 day. No pole is seen at this time. Follow-up is recommended. Prescriptions: No Action omeprazole magnesium [Prilosec OTC] 20 mg tablet,delayed release (DR/EC) 20 mg PO DAILY Qty: 30 0RF ondansetron 4 mg tablet,disintegrating 4 mg PO Q6-8H PRN (Reason: nausea and vomiting) Qty: 7 0RF omeprazole 20 mg capsule,delayed release(DR/EC) 20 mg PO DAILY Qty: 30 0RF omeprazole 10 mg capsule,delayed release(DR/EC) 10 mg PO DAILY Qty: 14 0RF ondansetron 4 mg tablet,disintegrating 4 mg PO ONCE PRN (Reason: nausea and vomiting) Qty: 10 0RF ibuprofen 600 mg tablet 600 mg PO Q6H PRN (Reason: pain) Qty: 30 0RF cyclobenzaprine 5 mg tablet 5 mg PO TID PRN (Reason: muscle spasm) Qty: 10 0RF levofloxacin 500 mg tablet 500 mg PO DAILY Qty: 9 0RF ondansetron HCl 4 mg tablet 4 mg PO Q6H PRN (Reason: nausea and vomiting) Qty: 10 0RF Referrals: [facility] [Provider Group] [facility] [Outside] Referral Note: IUP with no pole, HCG 5100, 5w1d Interventions: ED Discharge Assessment Last Done: 01/10/25 11:55 Discharge Date/Time: 01/10/25 11:55 Print Language: Amharic
[2025-01-10 08:26] LABS: Resp Syncy Virus RNA Qual PCR NEGATIVE (Negative); SARS COV2 PCR INHOUSE NEGATIVE (Negative)
--- NOTE | 2025-01-10 09:46 | PC.NURSE ---
patient resting quietly in room w/ no distress noted. call placed to US - continue to await US at this time.
[2025-01-10 10:52] VITALS: BP 105/63; PULSE 58; RESP 18; TEMP 36.7; O2SAT 99
[2025-01-10 11:15] LABS: Appearance Urine Cloudy; Glucose Urine UA Negative (Negative); PH 6.0 (5.0-9.0); Specific Gravity - Urine 1.025 (1.005-1.025); UMIC TRIGGER UACC YES
[2025-01-10 11:32] LABS: UACC Culture Trigger YES
[2025-01-10 11:55] VITALS: BP 105/63; PULSE 58; RESP 18; TEMP 36.7; O2SAT 99
== END 2025-01-10 11:55 | disposition home or self-care (01) ==
PROVIDERS: Physician Assistant; Emergency Provider Emergency Medicine
DX: O26.891 Other specified pregnancy related conditions, first trimester (principal); Z3A.01 Less than 8 weeks gestation of pregnancy; R05.9 Cough, unspecified; R06.02 Shortness of breath; Z87.891 Personal history of nicotine dependence
CPT/HCPCS: 36415; 76801; 76817; 80053; 81001; 83690; 84702; 85025; 87086; 87637; 99283; 99284

== ENCOUNTER → 2025-01-10 08:36 | Outpatient (BNV) | payer MEDICAID, SELFPAY | PROVIDERS: Emergency Provider Emergency Medicine; Visit Provider Radiology Diagnostic Radiology | DX: O26.891 Other specified pregnancy related conditions, first trimester (principal); R10.9 Unspecified abdominal pain; Z3A.01 Less than 8 weeks gestation of pregnancy | CPT/HCPCS: 76801; 76817 ==

== ENCOUNTER 2025-01-18 16:40 | Outpatient (REF) | payer MEDICAID, SELFPAY ==
--- OUTSIDE RECORDS SUMMARY | 2025-01-18 17:49 | XMS_ITS | Clinical Summary ---
Author Organization [facility] Address [address] [address] Phone Care Team Providers Care Asbestos Removal Worker Name Role Phone Pcp, Unknown Primary Care [...] topic Medical Devices Not on file Insurance [facility] [id number] Care Teams Asbestos Removal Worker Relationship Specialty Start Date End Date Pcp, Unknown PCP - General 05/08/23 Additional Source Comments The information contained in this document represents components of the legal health record. It is not the complete legal health record.[facility]
[2025-01-18 21:37] LABS: CT PCR NOT DETECTED (Not Detect.); NG PCR NOT DETECTED (Not Detect.)
[2025-01-18 21:52] LABS: Bacterial Vaginosis PCR POSITIVE (Negative); Candida Group PCR NOT DETECTED (Not Detect); Candida glab krusei PCR NOT DETECTED (Not Detect); Trichomonas vaginalis PCR NOT DETECTED (Not Detect)
== END 2025-01-18 16:41 | disposition home or self-care (01) ==
LOC: HO.HHCLNP 16:40
PROVIDERS: Visit Provider Internal Medicine Geriatric Medicine
DX: N76.0 Acute vaginitis (principal); Z11.3 Encounter for screening for infections with a predominantly sexual mode of transmission; Z11.8 Encounter for screening for other infectious and parasitic diseases
CPT/HCPCS: 81515; 87491; 87591

== ENCOUNTER 2025-02-03 08:45 | Emergency (ER) | payer MEDICAID, SELFPAY ==
[2025-02-03 09:04] VITALS: BP 113/61; PULSE 70; RESP 20; TEMP 36.8; O2SAT 98; BMI 21.1
--- NOTE | 2025-02-03 09:10 | ED_ITS ---
HPI - General Adult General Chief complaint: Nausea/Vomiting/Diarrhea Stated complaint: vomiting 8 wks Time Seen by Provider: 02/03/25 09:09 Source: patient Mode of arrival: ambulatory Limitations: no limitations History of Present Illness ED Provider: Solange Smiley PA-C HPI narrative: Patient is a 24 year old assigned female at with presenting to the emergency department today for nausea, vomiting, and diarrhea. 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 Patient states that she has been vomiting every few hours for the past 4 weeks, but has been vomiting more frequently in the past 1 week. She reports that she has had decreased PO intake and was unable to tolerate any liquids today. She reports feeling weak and dehydrated. Patient denies any vaginal bleeding, abdominal or pelvic pain, or blood in her stool. Patient denies any lightheadedness, abdominal pain, fever, chills, blurry vision, double vision, loss of vision, chest pain, difficulty breathing, shortness of breath, pain with urination, increased urinary frequency, increased urinary urgency, or any other complaints at this time. Patient states that she is intermittently dizzy. Onset (ago): week(s) (4 weeks) Related Data Previous Rx's ?Medication ?Instructions ?Recorded omeprazole magnesium 20 mg 20 mg PO DAILY #30 tabs 09/19 tablet,delayed release (Prilosec OTC) ondansetron 4 mg disintegrating 4 mg PO Q6-8H PRN naus ea and 05/05/20 tablet vomiting #7 tabs omeprazole 20 mg capsule,delayed 20 mg PO DAILY #30 ca ps 08/01/21 release omeprazole 10 mg capsule,delayed 10 mg PO DAILY #14 ca ps 11/19/21 release ondansetron 4 mg disintegrating 4 mg PO ONCE PRN nause a and 11/19/21 tablet vomiting #10 tabs cyclobenzaprine 5 mg tablet 5 mg PO TID PRN muscle spa sm #10 12/02/22 tabs ibuprofen 600 mg tablet 600 mg PO Q6H PRN pain #30 t abs 12/02/22 levofloxacin 500 mg tablet 500 mg PO DAILY #9 tabs 12/22 ondansetron HCl 4 mg tablet 4 mg PO Q6H PRN nausea and 01/06/23 vomiting #10 tabs cephalexin 500 mg capsule 500 mg PO Q6H 7 days #28 cap s 02/03/25 ondansetron 4 mg disintegrating 4 mg PO Q8H 3 days #9 tabs 02/03/25 tablet pyridoxine (vitamin B6) 10 mg 10 mg PO DAILY #14 tabs 02/03/25 tablet Allergies Allergy/AdvReac Type Severity Reaction Status Date / Time Penicillins (PENICILLINS) Allergy Unknown UNKNOWN Verified 02/03/25 09:08 Review of Systems 2 Constitutional: Constitutional: Reports as per HPI Eyes: Eyes: Reports as per HPI ENT: Reports as per HPI Cardiovascular: Cardiovascular: Reports as per HPI Respiratory: Respiratory: Reports as per HPI Gastrointestinal: Gastrointestinal: Reports as per HPI Genitourinary: Genitourinary: Reports as per HPI Musculoskeletal: Musculoskeletal: Reports as per HPI Integumentary/Breasts: Skin/Breast: Reports as per HPI Neurologic: Reports as per HPI Psychiatric: Psychiatric: Reports as per HPI Endocrine: Endocrine: Reports as per HPI Hematologic/Lymphatic: Hematologic/Lymphatic: Reports as per HPI Allergic/Immunologic: Allergic/Immunologic: Reports as per HPI [facility] Past Medical History Attestation statement: The following information was validated with the patient. Source: old records reviewed and nursing notes reviewed Medical History No known health problems Social History Social History Alcohol intake: never Advance Directives: No Advance Directives Information Provided: Yes Physical Exam ED Vital Signs: Vital Signs - 24 hr 02/03/25 09:04 02/03/25 12:08 02/03/25 12:19 Temperature 98.3 F 97.8 F 97.8 F Pulse Rate 70 66 66 Respiratory Rate 20 16 16 Blood Pressure 113/61 99/52 L 99/52 L Pulse Oximetry 98 99 99 Oxygen Delivery Method Room Air Room Air Room Air BMI result Body Mass Index 21.1 Const General: cooperative, no acute distress, alert and awake Nutritional Appearance: well nourished Orientation/consciousness: patient oriented x3 HENMT Head: Yes normal to inspection and Yes atraumatic Ears: hearing grossly normal bilaterally and external ears normal General nose exam: Normal external nose present, no nasal discharge noted and no epistaxis Face and sinus: Yes normal facial exam, No abrasion and No laceration Mouth: Normal oral and palatal mucosa present, no drooling and no muffled voice Eyes General: appearance normal, both eyes and all related structures Periorbital: periorbital findings normal Eyelids: Yes eyelids normal Conjunctivae: conjunctivae normal Pupils: Equal, round and reactive pupils present EOM: EOMs intact bilaterally Neck Neck: Yes normal visual inspection and Yes full ROM Resp Effort & Inspection: normal respiratory effort and able to speak in complete sentences Neuro General: patient oriented x3, moves all extremities and CN's II-XI intact bilaterally Cranial nerves: Yes Equal, round and reactive pupils present Cognition (Neuro): normal cognition Extrem General: Yes normal to inspection, Yes full ROM and Yes capillary refill normal Psych Appearance: grossly normal Mental Status: mental status grossly normal Affect: normal affect Attitude: cooperative Thought process: Normal thought process present Thought content: Normal thought content present Insight: Good insight present (Psych) Medications Administered Discontinued Medications Generic Name Dose Route Start Last Admin Trade Name Freq PRN Reason Stop Dose Admin Diphenhydramine HCl 25 mg 02/03/25 09:10 02/03/25 09:23 Diphenhydramine Hcl 50 Mg/Ml Vial IVPUSH 02/03/25 09:11 25 mg ONCE ONE Administration Sodium Chloride 1,000 mls @ 999 mls/hr 02/03/25 11:00 02/03/25 11:31 Ns IV 02/03/25 12:00 Infused .Q1H1M OCTAVIO Infusion Metoclopramide HCl 10 mg 02/03/25 09:10 02/03/25 09:23 Metoclopramide Hcl 10 Mg/2 Ml Vial IVPUSH 02/03/25 09:11 10 mg ONCE ONE Administration Ondansetron HCl 4 mg 02/03/25 10:49 02/03/25 10:52 Ondansetron Hcl 4 Mg/2 Ml Vial IVPUSH 02/03/25 10:50 4 mg ONCE ONE Administration Medical Decision Making Medical Decision Making MDM Narrative: Patient is a 24 year old assigned female at with presenting to the emergency department today for nausea, vomiting, and diarrhea. Patient's physical exam was unremarkable. Patient's blood work was unremarkable and consistent with early . Patient's urine showed evidence of a possible UTI, given her status - will treat. I explained my physical exam findings as well as all test results to the patient. I answered all questions asked by the patient. Patient received IV reglan, benadryl, zofran, and fluids which, upon re-evaluation, she stated it helped her symptoms significantly. I stressed the importance of the patient taking her medication as directed (either prescribed or as the over the counter packaging recommends). I stressed the importance of the patient following up with her primary care provider and her OBGYN. I stressed the importance of the patient returning to the emergency department immediately if her symptoms were to worsen or if she were to develop any dizziness, shortness of breath, difficulty breathing, chest pain, blurry vision, loss of vision, nausea, vomiting, abdominal pain, fever, chills, back pain, or any other complaints. Patient verbalized agreement and understanding with this treatment plan and discharge. Differential Diagnosis Differential Diagnoses: The differential diagnosis associated with the presentation includes Early Nausea Vomiting UTI Admission/Observation Consideration of admission/observation: Escalation of care including admission/observation considered Patient would have been admitted to the hospital had her work up had any findings where hospital admission was appropriate and her clinical presentation warranted hospital admission. Lab Data [facility] Lab Attestation statement: I reviewed the patient's lab results. My interpretation of these results are in the [facility] Rationale portion of this note. 02/03/25 09:15 02/03/25 09:15 Labs: Lab Results 02/03/25 02/03/25 02/03/25 Range/Units 09:14 09:15 11:36 WBC 10.7 (4.8-10.8) X10*3/uL RBC 4.65 (4.20-5.50) X10*6/uL Hgb 14.3 (12.0-16.0) g/dl Hct 40.9 (37.0-47.0) % MCV 88.0 (80.0-98.0) fL MCH 30.8 (27.0-33.0) pg MCHC 35.0 (31.0-35.0) g/dl RDW 11.8 (11.0-16.0) % Plt Count 235 (160-400) X10*3/uL MPV 10.5 (9.4-12.3) fL Immature Gran % (Auto) 0.7 H (0.0-0.4) % Neut % (Auto) 80.7 H (45-73) % Lymph % (Auto) 11.4 L (20-40) % [place] % (Auto) 6.5 (2-11) % Eos % (Auto) 0.4 (0-4) % Baso % (Auto) 0.3 (0-2) % Lymph # (Auto) 1.2 (1.2-4.9) X10*3/uL [place] # (Auto) 0.7 (0.1-1.2) X10*3/uL Eos # (Auto) 0.0 (0.0-0.4) X10*3/uL Baso # (Auto) 0.0 (0.0-0.2) X10*3/uL Abs Immat Gran (auto) 0.07 H (0.00-0.03) X10*3/uL Absolute Neuts (auto) 8.6 H (2.0-8.3) x10*3/uL Absolute Nucleated RBC 0.000 (0.0-0.012) X10*3/uL Nucleated RBC % (auto) 0.0 (0.0-0.2) /100WBC Sodium 137 (135-145) mmol/L Potassium 3.7 (3.3-5.1) mmol/L Chloride 104 (96-108) mmol/L Carbon Dioxide 24 (22-29) mmol/L Anion Gap 13 (12-20) BUN 8 L (9-16) mg/dL Creatinine 0.66 (0.5-1.4) mg/dL Estim Creat Clear Calc 125.9 Estimated GFR > 60 Random Glucose 88 (60-115) mg/dL Calcium 9.0 (8.4-10.2) mg/dL Magnesium 1.7 (1.6-2.6) mg/dL Total Bilirubin 0.5 (0.0-1.0) mg/dL AST 23 (5-31) U/L ALT 21 (0-31) U/L Alkaline Phosphatase 59 (39-117) U/L Total Protein 7.1 (6.5-8.0) g/dL Albumin 4.2 (3.5-5.0) g/dL Beta HCG, Quant 502973 mIU/mL Urine Color Dark Yellow Urine Appearance Cloudy Urine pH 6.0 (5.0-9.0) Ur Specific [place] 1.025 (1.005-1.025) Urine Protein Trace (Neg-Trace) mg/dL Urine Glucose (UA) Negative (Negative) mg/dL Urine Ketones 40 (Negative) mg/dL Urine Blood Negative (Negative) Urine Nitrite Negative (Negative) Ur Leukocyte Esterase Trace H (Negative) Urine RBC 0-2 (0-2) /HPF Urine WBC 0-5 (0-5) /HPF Ur Squamous Epith Cells >20 (0-2) /HPF Urine Bacteria 3+ (None Seen) Hyaline Casts 0-2 (0-2) /LPF COVID-19 (MAUREEN) Negative (Negative) COVID-19 Clin Com See Note Influenza Type A (CALLI) Negative (Negative) Influenza Type B (CALLI) Negative (Negative) Influenza A & B Note See Note Discharge Plan Discharge Clinical Impression: Nausea & vomiting, , Urinary tract infection Patient Disposition: Home, Self-Care Instructions: (ED), Acute Nausea and Vomiting (DC) Additional Instructions: Your labs were reassuring there is no EMERGENT cause for your symptoms. Your urine does look mildly infected - I have prescribed an antibiotic for this. As you know, nausea + vomiting are common in early . Take your medication as prescribed. Follow up with your OBGYN as scheduled. IF you are prescribed home medications and/or you are taking over the counter medications at home - it is very important you continue to do so as prescribed / directed unless told otherwise. Follow up with a primary care provider. Return to the emergency department immediately if your symptoms worsen or if you develop any numbness, tingling, dizziness, shortness of breath, difficulty breathing, chest pain, blurry vision, loss of vision, nausea, vomiting, abdominal pain, fever, chills, back pain, or any other complaints. L If you do not have a primary care provider - call any of the below numbers to establish and follow up with a primary care provider. [facility] Primary Care ([place]) [phone] [place] [address], [address] [facility] Primary Care ([address] [place]) [phone] [place] [address], [address] [facility], [address] [facility] Primary Care ([address] [place]) [phone] [place] [address], [address] [facility], [address] [facility] Primary Care ([place]) [phone] [place] [address], [address] [place], [address] [facility] Family Medicine [phone] [place] [address], [address] Please see the information below about our Patient Portal. If you are not yet enrolled in the [facility] Patient Portal, you will receive an enrollment email invitation following your visit to any [facility] setting. You may also self-enroll in the Patient Portal by visiting our website: [email or web address] The following information is required to access the Patient Portal: - Your [facility] Medical Record Number - Your personal home email address (must match what is in your electronic medical record, Registration staff can assist with this) - Name - Date of Capabilities of the Patient Portal: - Message some providers - View upcoming appointments - Access your health summary, medical history, and visit history - View current conditions and allergies - View procedure and lab results - View your medications, including guidelines, side effects, and precautions - Complete pre-appointment questionnaires requested by your provider - Ready summary reports of your office visits and procedures To access the Patient Portal Mobile [employer], follow these directions: - Search [employer] in the [employer] Store or [employer] Store - Download the [employer] - Search for [facility] - Enter your login/password Prescriptions: New ondansetron 4 mg tablet,disintegrating 4 mg PO Q8H 3 Days Qty: 9 0RF pyridoxine (vitamin B6) 10 mg tablet 10 mg PO DAILY Qty: 14 0RF cephalexin 500 mg capsule 500 mg PO Q6H 7 Days Qty: 28 0RF No Action omeprazole magnesium [Prilosec OTC] 20 mg tablet,delayed release (DR/EC) 20 mg PO DAILY Qty: 30 0RF ondansetron 4 mg tablet,disintegrating 4 mg PO Q6-8H PRN (Reason: nausea and vomiting) Qty: 7 0RF omeprazole 20 mg capsule,delayed release(DR/EC) 20 mg PO DAILY Qty: 30 0RF omeprazole 10 mg capsule,delayed release(DR/EC) 10 mg PO DAILY Qty: 14 0RF ondansetron 4 mg tablet,disintegrating 4 mg PO ONCE PRN (Reason: nausea and vomiting) Qty: 10 0RF ibuprofen 600 mg tablet 600 mg PO Q6H PRN (Reason: pain) Qty: 30 0RF cyclobenzaprine 5 mg tablet 5 mg PO TID PRN (Reason: muscle spasm) Qty: 10 0RF levofloxacin 500 mg tablet 500 mg PO DAILY Qty: 9 0RF ondansetron HCl 4 mg tablet 4 mg PO Q6H PRN (Reason: nausea and vomiting) Qty: 10 0RF Stand Alone Forms: Work/School Release Interventions: ED Discharge Assessment Last Done: 02/03/25 12:19 Discharge Date/Time: 02/03/25 12:19 Print Language: Spanish
[2025-02-03 09:20] LABS: MANUAL DIFF FLAG NO
[2025-02-03 09:23] LABS: Hematocrit 40.9 % (37.0-47.0); Hemoglobin 14.3 g/dl (12.0-16.0); Imm Gran Abs Auto 0.07 X10*3/uL (0.00-0.03); Imm Gran Pct Auto 0.7 % (0.0-0.4); Lymphocytes Absolute Auto 1.2 X10*3/uL (1.2-4.9); Mean Corpuscular HGB Conc 35.0 g/dl (31.0-35.0); Mean Corpuscular Hemoglobin 30.8 pg (27.0-33.0); Mean Corpuscular Volume 88.0 fL (80.0-98.0); NRBC Abs Auto 0.000 X10*3/uL (0.0-0.012); NRBC Pct Auto 0.0 /100WBC (0.0-0.2); Platelet Count 235 X10*3/uL (160-400); Red Blood Count 4.65 X10*6/uL (4.20-5.50); White Blood Count 10.7 X10*3/uL (4.8-10.8)
[2025-02-03 09:42] LABS: IDNOW Serial# 58CA691E
[2025-02-03 09:43] LABS: COVID-19 Test Negative (Negative); IDNOW Serial# 6674DD1D; Influenza B2 Negative (Negative)
[2025-02-03 09:51] LABS: Alanine Aminotransferase 21 U/L (0-31); Albumin Level 4.2 g/dL (3.5-5.0); Alkaline Phosphatase 59 U/L (39-117); Anion Gap 13 (12-20); Aspartate Amino Transferase 23 U/L (5-31); Blood Urea Nitrogen 8 mg/dL (9-16); Calcium 9.0 mg/dL (8.4-10.2); Carbon Dioxide 24 mmol/L (22-29); Chloride 104 mmol/L (96-108); Creatinine Clr Calc Pharmacy 125.9; Estimated Glomerular Filt Rate > 60; Magnesium 1.7 mg/dL (1.6-2.6); Potassium 3.7 mmol/L (3.3-5.1); Sodium 137 mmol/L (135-145); Total Protein 7.1 g/dL (6.5-8.0)
--- OUTSIDE RECORDS SUMMARY | 2025-02-03 10:03 | XMS_ITS | Encounter Summary ---
Author Organization [employer] [facility] Address [address] [place] [address] [address] [place] [address] Care Team Providers Care Clinical Data Abstractor Name Role Phone Carley Spann HECTOR Primary Care Provider [phone] Reason for Visit * Reason Onset Date Comments Appointment 08/14/2022 Encounter Details Date Type Department Care Team (Late st Contact Info) Description 08/14/2022 Telephone [facility] [address] [place] [address] Claire Lowe, DDS [address] [place] [address] Appointment Social History Tobacco Use Types Packs/Day [...] documented in this encounter Plan of Treatment Upcoming Encounters Date Type Department Care Team (Late st Contact Info) Description 05/23/2025 11:00 AM EST Office Visit [facility] [address] [place] [address] Ann-Marie Berg, OD [address] [place] [address] documented as of this encounter Visit Diagnoses Not on filedocumented in this encounter Care Teams Clinical Data Abstractor Relationship Specialty Start Date End Date Carley Spann FNP [address] [place] [address] PCP - General Family Medicine 12/09/21 documented as of this encounter
--- OUTSIDE RECORDS SUMMARY | 2025-02-03 10:03 | XMS_ITS | Clinical Summary ---
Author Organization [facility] Address [address] [place] [address] [address] [place] [address] Care Team Providers Care Senior Solutions Consultant Name Role Phone Carley Spann HECTOR Primary Care Provider [phone] Allergies Active Allergy Reactions Criticality Noted Date Comments Amoxicillin 02/08/2015 Other reaction(s): rash Penicillins 11/06/2022 Medications cyclobenzaprin e (Flexeril) 5 MG tablet TAKE 1 TABLET [...] shortness of breath. 18 g 1 5 026 Active Spacer/Aero-Ho lding Chambers (OptiChamber [place]) misc 1 each every 4 (four) hours if needed (asthma). 1 each 5 Active metroNIDAZOLE (Metrogel) 0.75 % gel Apply topically 2 times daily. 45 g 5 025 Discontinu ed(Therapy completed) metroNIDAZOLE (Flagyl) 500 MG tablet Take 1 tablet (500 mg) by mouth 2 times daily for 7 days. 14 tablet 5 025 Active Problems Problem Noted Date Diagnosed Date Dental calculus 04/28/2023 Viral URI 09/10/2022 Acute low back pain 09/10/2022 Mixed anxiety and depressive disorder 09/10/2022 Weight loss 10/30/2018 Amblyopia of left eye 06/26/2017 Congenital exotropia of left eye 06/26/2017 Myopia 02/09/2016 Resolved Problems Problem Noted Date Diagnosed Date Resolved Date Tobacco dependence 06/18/2024 5 Encounters Date Type Department Care Team Description 01/19/2025 Results Follow-Up [facility] [address] [place] [phone] Name, MD Yahir Bacterial Vaginosis, Chlamydia/N. Gonorrhoeae RNA, TMA, Urogenitial 01/18/2025 1:00 PM EDT Office Visit [facility] [address] [place] [phone] NameYahir MD Vaginosis (Primary Dx) 01/18/2025 Travel 01/07/2025 Telephone [facility] [address] [place] [phone] Carley Spann FNP Referral from Last 3 Months Immunizations Immunization Administration Dates Next Due DTaP 07/26/2004, 1,04/03/2000,02/15/2000,0 1999 HPV 9-Valent 02/09/2016,02/08/2015 HPV, Quadrivalent 02/02/2014 Hep A, ped/adol, 2 dose 02/08/2015,02/02/2014 Hep B, Adolescent or Pediatric 06/23/2000,1999,1999 HiB, unspecified 02/15/2000 Hib (HbOC) 12/11/2000,04/03/2000,1999 IPV 07/26/2004,12/11/2000,02/15/2000 ,1999 Influenza, IIV3, injectable 02/01/2011 MMR 07/26/2004,09/11/2000 Meningococcal MCV4P ACYW-135 02/09/2016,02/03/20 14 Pneumococcal Conjugate PCV 7 12/11/2000,06/22/19 01,04/03/2000,02/15/2000 Tdap 01/08/2012 Varicella 01/08/2012,09/11/2000 Family History Medical [...] Sign Reading Time Taken Comments Blood Pressure 110/70 01/18/2025 12:59 PM EDT Pulse 88 01/18/2025 12:59 PM EDT Temperature 37.2 C (98.9 F) 01/18/2025 12:59 PM EDT Respiratory Rate 20 01/18/2025 12:59 PM EDT Oxygen Saturation 98% 10/07/2024 10:19 AM EDT Inhaled Oxygen Concentration - - Weight 64.1 kg (141 lb 6.4 oz) 01/18/2025 12:59 PM EDT Height 168 cm (5' 6.13 ) 01/18/2025 12:59 PM EDT Body Mass Index 22.73 01/18/2025 12:59 PM EDT Plan of Treatment Upcoming Encounters Date Type Department Care Team (Late st Contact Info) Description 05/23/2025 11:00 AM EST Office Visit [facility] [address] [place] [address] Otis, Ann-Marie, OD [address] [place] [address] Health Maintenance Due Date Last Done Comments Depression Screening 1999 Lipid Panel 1999 SDOH Screening 1999 Disability Screening 1999 Alcohol/Substance Use Screening 2011 Family Planning (PISQ) 09/07/2014 Pneumococcal Vaccine: Pediatrics (0 to 5 Years) and At-Risk Patients (6 to 49) Years (1 of 2 - PCV) 09/07/2018 12/11/2000, 06/22/2000, 04/03/2000, Additional history exists Pap Smear 09/07/2020 DTaP/Tdap/Td Vaccines (7 - Td or Tdap) 01/07/2022 01/08/2012, 07/26/2004, 04/13/2001, Additional history exists Dental Oral Exam 08/01/2023 01/30/2023, , 06/08/2015 Dental Prophylaxis 10/28/2023 04/28/2023, 1 , 06/08/2015, Additional history exists Dental X-Ray: Bitewings 02/01/2024 01/31/20 23, 12/20/2022, 10/17/2022, Additional history exists COVID-19 Vaccine ( - season) 2025 Influenza Vaccine (#1) 2025 02/01/2011 Tobacco Screening 01/18/2026 01/18/2025 Dental X-Ray: Full Mouth 01/31/2026 01/30/2023, 07/03 [...] 01/2015, 02/02/2014 Meningococcal Vaccine Completed 02/09/2016, 014 HIV Screening Completed 10/07/2024 Hepatitis C Screening Completed 10/07/2024 Meningococcal B Vaccine Aged Out No l onger eligible based on patient's age to complete this topic RSV under 20 months Aged Out No longe r eligible based on patient's age to complete this topic Rotavirus Vaccines Aged Out No longer eligible based on patient's age to complete this topic Procedures Procedure Name Priority Date/Time Associated Diagnosis Comments CHLAMYDIA/N. GONORRHOEAE RNA, TMA, UROGENITAL Routine 01/18/2025 1:04 PM EDT Vaginosis BACTERIAL VAGINOSIS PANEL Routine 01/18/2025 1:04 PM EDT Vaginosis HEPATITIS C AB W/REFL TO HCV RNA, QN, PCR Routine 10/07/2024 11:07 AM EDT Vaginal discharge Screening examination for STI HIV 1/2 ANTIGEN/ANTIBODY, FOURTH GENERATION W/RFL Routine 10/07/2024 11:07 AM EDT Vaginal discharge Screening examination for STI PROPHYLAXIS - ADULT Routine 04/28/2023 3 :00 PM EST Dental calculus INTRAORAL - COMPLETE SERIES OF RADIOGRAPHIC IMAGES Routine 01/30/2023 1:30 PM EDT COMPREHENSIVE ORAL EVALUATION - NEW OR ESTABLISHED PATIENT Routine 01/30/2023 1:30 PM EDT from Last 3 Months or Most Recently Relevant to Health Maintenance Results * (ABNORMAL) Bacterial Vaginosis (01/18/2025 1:04 PM EDT) TRICHOMONAS VAGINALIS DETECTION BY PCR NOT DETECTED Not Detect [facility] BACTERIAL VAGINOSIS DETECTION BY PCR POSITIVE(A) Negative [facility] Comment:The BV organism targ ets of the Xpert Xpress MVP test can becommensal in women; Xpert Xpress MVP positive results forbacterial vaginosis should be considered in conjunction withother clinical and patient information to determine thedisease status. Organisms that are not detected by the XpertXpress MVP test have also been reported to be associatedwith BV and aerobic vaginitis.The Xpert Xpress MVP test performance has not been evaluatedin patients under the age of 14. MARI GROUP DETECTION BY PCR NOT DETECTED Not Detect [facility] Mari glab krusei PCR NOT DETECTED Not Detect [facility] Swab Vaginal structure / Unknown 01/18/2025 1:04 PM EDT 01/18/2025 4:41 PM EDT us Yahir MENDOZA MICROBIOLOGY - GENERAL ORDER BLANCA Final Result [facility] [address] [place] [address] [phone] * Chlamydia/N. Gonorrhoeae RNA, TMA, Urogenitial (01/18/2025 1:04 PM EDT) CT PCR NOT DETECTED Not Detect. [facility] Comment:A not detected test result does not exclude the possibilityof infection because test results can be affected byimproper specimen collection, concurrent antibiotic therapy,or the number of organisms in the specimen which may bebelow the sensitivity of the test. As with many diagnostictests, results from the Xpert CT/NG assay should beinterpreted in conjunction with other laboratory andclinical data available to the clinician.Xpert CT/NG performance has not been evaluated in patientsless than 14 years of age. The assay should not be used forthe evaluationof suspected sexual abuse or for other medico-legalindications. Additional testing is recommended in anycircumstance when false positive or false negative resultscould lead to adverse medical, social or psychologicalconsequences. NG PCR NOT DETECTED Not Detect. [facility] Comment:A not detected test result does not exclude the possibilityof infection because test results can be affected byimproper specimen collection, concurrent antibiotic therapy,or the number of organisms in the specimen which may bebelow the sensitivity of the test. As with many diagnostictests, results from the Xpert CT/NG assay should beinterpreted in conjunction with other laboratory andclinical data available to the clinician.Xpert CT/NG performance has not been evaluated in patientsless than 14 years of age. The assay should not be used forthe evaluationof suspected sexual abuse or for other medico-legalindications. Additional testing is recommended in anycircumstance when false positive or false negative resultscould lead to adverse medical, social or psychologicalconsequences. Swab (Vaginal Swab) 01/18/2025 1:04 PM EDT 01/18/2025 4:41 PM EDT Yahir Name MD LAB MICROBIOLOGY - GENERAL ORDER BLANCA Final Result Performing Organization Address [facility] Co de Phone Number [facility] [address] [place] [phone] * Hepatitis C Antibody with Reflex to HCV, RNA, Quantitative, Real-Time PCR (10/07/2024 11:07 AM EDT) Hepatitis C Antibody Nonreactive Nonreactive [facility] Comment:Antibodies to HCV no t detected; does not exclude early acuteHCV infection. Blood Venous blood specimen / Unknown 10/07/2024 11:07 AM EDT 10/07/2024 12:58 PM EDT Eve Alexandre DO LAB BLOOD ORDERABLES Final R esult Performing Organization Address [facility] Co de Phone Number [facility] [address] [place] [phone] * HIV-1/2 Antigen and Antibodies, Fourth Generation, with Reflexes (10/07/2024 11:07 AM EDT) HIV AB/AG Nonreactive Nonreactive [facility] Comment:HIV-1 p24 Ag and/or HIV-1/HIV-2 Ab not detected.A test result that is nonreactive does not exclude thepossibility of exposure to or infection with HIV-1 and/orHIV-2. Nonreactive results in this assay for individualswith prior exposure to HIV-1 and/or HIV-2 may be due toantigen and antibody levels that are below the limit ofdetection of this assay.The Returbonitydy HIV Ag/Ab Combo assay result andsupplemental assay results should be interpreted inconjunction with the patient's clinical presentation,history and other laboratory results. If the results areinconsistent with clinical evidence, additional testing issuggested to confirm the result. Blood Venous blood specimen / Unknown 10/07/2024 11:07 AM EDT 10/07/2024 12:58 PM EDT Eve Alexandre DO LAB BLOOD ORDERABLES Final R esult [facility] [address] [place] [phone] [phone] from Last 3 Months or Most Recently Relevant to Health Maintenance Insurance [facility] C3 DENTAL-[facility] MEDICAID STAND ADULT DENTAL - HSN PARTIAL (MEDICAID) Care Teams Senior Solutions Consultant Relationship Specialty Start Date End Date Carley Spann FNP [address] [place] [address] PCP - General Family Medicine 12/09/21
--- OUTSIDE RECORDS SUMMARY | 2025-02-03 10:03 | XMS_ITS | Clinical Summary ---
Author Organization [facility] Address [address] [phone] Phone Care Team Providers Care Food Counselor Name Role Phone Pcp, Unknown Primary Care [...] topic Medical Devices Not on file Insurance [facility] [place] [id number] Care Teams Food Counselor Relationship Specialty Start Date End Date Pcp, Unknown PCP - General 05/08/23 Additional Source Comments The information contained in this document represents components of the legal health record. It is not the complete legal health record.[facility]
[2025-02-03 11:44] LABS: Appearance Urine Cloudy; Glucose Urine UA Negative (Negative); PH 6.0 (5.0-9.0); Specific Gravity - Urine 1.025 (1.005-1.025); UMIC TRIGGER UACC YES
[2025-02-03 12:08] VITALS: BP 99/52; PULSE 66; RESP 16; TEMP 36.6; O2SAT 99
[2025-02-03 12:19] VITALS: BP 99/52; PULSE 66; RESP 16; TEMP 36.6; O2SAT 99
== END 2025-02-03 12:19 | disposition home or self-care (01) ==
PROVIDERS: Physician Assistant Medical; Emergency Provider Emergency Medicine
DX: O23.31 Infections of other parts of urinary tract in pregnancy, first trimester (principal); N39.0 Urinary tract infection, site not specified; O21.9 Vomiting of pregnancy, unspecified; Z3A.01 Less than 8 weeks gestation of pregnancy
CPT/HCPCS: 80053; 81001; 83735; 84702; 85025; 87502; 87635; 96361; 96374; 96375; 99284; J1200; J2405; J2765

== ENCOUNTER 2025-03-26 12:14 | Emergency (ER) | payer MEDICAID, SELFPAY ==
--- NOTE | ~2025-03-26 | US_ITS ---
CLINICAL HISTORY: clot rule out, , syncope Bilateral lower extremity venous duplex ultrasound. Comparison: None Technique: Real time sonographic imaging, including color-flow imaging and spectral analysis, was performed by the indigo mixer. Multiple financial services sales representative static images were saved for review. Findings: The deep venous systems of both lower extremities are fully compressible from common femoral through the proximal leg veins. There is spontaneous and phasic flow, and augmentation. Color Doppler and spectral tracings are unremarkable. Impression: 1. Bilateral lower extremity venous duplex ultrasound negative for DVT This document has been electronically signed by: Higinio Ramirez MD on 03/26/2025 14:12:17
--- NOTE | ~2025-03-26 | CT_ITS ---
CLINICAL HISTORY: syncope, Exam: Contrast-enhanced chest CT pulmonary angiogram with multiplanar reformats. Comparison: None. Findings: There is no pulmonary embolism or thoracic aortic dissection. No mediastinal or hilar masses or adenopathy. No pleural or pericardial effusions. Images below the diaphragms reveal no acute abnormalities. Lungs are free of focal consolidation. Airways are patent. No pneumothorax. Osseous structures reveal no destructive osseous lesions. Impression: 1. No pulmonary embolism, aortic dissection or acute pulmonary disease. This document has been electronically signed by: Higinio Ramirez MD on 03/26/2025 16:09:07
--- NOTE | 2025-03-26 12:16 | ED_ITS ---
HPI - General Chief complaint: Syncope Stated complaint: 4 Mos Sick Time Seen by Provider: 03/26/25 13:00 Source: patient and other (patient's boyfriend) Mode of arrival: ambulatory Limitations: no limitations History of Present Illness ED Provider: Solange Smiley PA-C HPI Narrative: Patient is a 24 year old assigned female at with a history of currently 14 weeks presenting to the emergency department today after a syncopal episode. 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 Patient states that she ate at 9 this morning but it was something small and she hasn't eaten since. Patient denies any other complaints at this time. Patient denies any abdominal pain, vaginal bleeding, vaginal discharge, or chest pain. Patient : Yes Number of Weeks : 14 OB History - Current : no complications Related Data : 1 Para: 0 Previous Rx's ?Medication ?Instructions ?Recorded omeprazole magnesium 20 mg 20 mg PO DAILY #30 tabs 09/19 tablet,delayed release (Prilosec OTC) ondansetron 4 mg disintegrating 4 mg PO Q6-8H PRN naus ea and 05/05/20 tablet vomiting #7 tabs omeprazole 20 mg capsule,delayed 20 mg PO DAILY #30 ca ps 08/01/21 release omeprazole 10 mg capsule,delayed 10 mg PO DAILY #14 ca ps 11/19/21 release ondansetron 4 mg disintegrating 4 mg PO ONCE PRN nause a and 11/19/21 tablet vomiting #10 tabs cyclobenzaprine 5 mg tablet 5 mg PO TID PRN muscle spa sm #10 12/02/22 tabs ibuprofen 600 mg tablet 600 mg PO Q6H PRN pain #30 t abs 12/02/22 levofloxacin 500 mg tablet 500 mg PO DAILY #9 tabs 12/22 ondansetron HCl 4 mg tablet 4 mg PO Q6H PRN nausea and 01/06/23 vomiting #10 tabs cephalexin 500 mg capsule 500 mg PO Q6H 7 days #28 cap s 02/03/25 ondansetron 4 mg disintegrating 4 mg PO Q8H 3 days #9 tabs 02/03/25 tablet pyridoxine (vitamin B6) 10 mg 10 mg PO DAILY #14 tabs 02/03/25 tablet Allergies Allergy/AdvReac Type Severity Reaction Status Date / Time Penicillins (PENICILLINS) Allergy Unknown UNKNOWN Verified 03/26/25 12:18 Review of Systems 2 Constitutional: Constitutional: Reports as per HPI Eyes: Eyes: Reports as per HPI ENT: Reports as per HPI Cardiovascular: Cardiovascular: Reports as per HPI Respiratory: Respiratory: Reports as per HPI Gastrointestinal: Gastrointestinal: Reports as per HPI Genitourinary: Genitourinary: Reports as per HPI Musculoskeletal: Musculoskeletal: Reports as per HPI Integumentary/Breasts: Skin/Breast: Reports as per HPI Neurologic: Reports as per HPI Psychiatric: Psychiatric: Reports as per HPI Endocrine: Endocrine: Reports as per HPI Hematologic/Lymphatic: Hematologic/Lymphatic: Reports as per HPI Allergic/Immunologic: Allergic/Immunologic: Reports as per HPI [facility] Past Medical History Attestation statement: The following information was validated with the patient. (all information validated with the patient's boyfriend) Source: old records reviewed, nursing notes reviewed and other (patient's boyfriend provided additional history and confirmed the history provided by the patient. ) Medical History No known health problems : 1 Para: 0 Social History Social History Alcohol intake: never Physical Exam 2 Vital Signs: Vital Signs: Last Vital Signs Temp 98 F 03/26/25 16:34 Pulse 71 03/26/25 16:34 Resp 18 03/26/25 16:34 BP 116/66 03/26/25 16:34 Pulse Ox 98 03/26/25 16:34 O2 Del Method Room Air 03/26/25 14:33 BMI result Body Mass Index 22.8 Const: General: no acute distress, alert and awake O rientation/consciousness: patient oriented x3 HEENT: Head: Yes normal to inspection and Yes atraumatic Ears: hearing grossly normal bilaterally and external ears normal General nose exam: Normal external nose present, no nasal discharge noted and no epistaxis Face and sinus: Yes normal facial exam, No abrasion and No laceration Mouth: Normal oral and palatal mucosa present, no drooling and no muffled voice Eyes: General: appearance normal, both eyes and all related structures P eriorbital: periorbital findings normal Eyelids: Yes eyelids normal C onjunctivae: conjunctivae normal Pupils: Equal, round and reactive pupils present EOM: EOMs intact bilaterally Neck: Neck: Yes normal visual inspection and Yes full ROM Resp: Effort & Inspection: normal respiratory effort and able to speak in complete sentences Neuro: General: patient oriented x3 Cranial nerves: Yes Equal, round and reactive pupils present Cognition (Neuro): normal cognition Extrem: General: Yes normal to inspection, Yes full ROM and Yes capillary refill normal Psych: Appearance: grossly normal Mental Status: mental status grossly normal Affect: normal affect Attitude: cooperative Thought process: N ormal thought process present Thought content: Normal thought content present Insight: Good insight present (Psych) Course Course Course Narrative: This is a Rapid Medical Exam performed in triage by Amira Guzmán PA-C. Full HPI, ROS and PE to be performed by primary ED provider. 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 Follows with Jared Yates. Denies head trauma, states held onto railing/slid down. denies pain, abdominal pain, vaginal bleeding. Denies complications of this PE: NAD, notoxic appearing, ambulating w/steady gait Plan: labs, UA, orthostatics, viral testing Medications Administered Discontinued Medications Generic Name Dose Route Start Last Admin Trade Name Freq PRN Reason Stop Dose Admin Sodium Chloride 1,000 mls @ 999 mls/hr 03/26/25 13:00 03/26/25 16:36 Ns IV 03/26/25 14:00 Infused .Q1H1M OCTAVIO Infusion Iohexol 100 ml 03/26/25 14:49 03/26/25 14:49 Iohexol 350 Mg/Ml 100 Ml Infus..Btl IV 03/26/25 14:50 65 ml ONCE ONE Administration Medical Decision Making Medical Decision Making MDM Narrative: Patient is a 24 year old assigned female at with a history of currently 14 weeks gestation presenting to the emergency department today after a syncopal episode. Patient's physical exam was as noted in the physical exam portion of this note and unremarkable. Patient's blood pressure was WNL. Patient was not orthostatic. Patient's blood work was unremarkable. Patient's EKG was unremarkable. Patient's CT PE showed no acute process. Patient's bilateral lower leg US showed no evidence of DVT. I am suspicious the patient had a vasovagal syncopal episode. I explained my physical exam findings as well as all test results to the patient. I answered all questions asked by the patient. Patient received IV fluids while in the department. I stressed the importance of the patient taking her medication as directed (either prescribed or as the over the counter packaging recommends). I stressed the importance of the patient following up with her primary care provider and her OBGYN. I stressed the importance of the patient returning to the emergency department immediately if she were to have another episode or develop any dizziness, shortness of breath, difficulty breathing, chest pain, blurry vision, loss of vision, nausea, vomiting, abdominal pain, fever, chills, back pain, or any other complaints. Patient verbalized agreement and understanding with this treatment plan and discharge. Differential Diagnosis Differential Diagnoses: The differential diagnosis associated with the presentation includes Vasovagal syncope Syncopal episode Dehydration Admission/Observation Consideration of admission/observation: Escalation of care including admission/observation considered Patient would have been admitted to the hospital had her work up had any findings where hospital admission was appropriate and her clinical presentation warranted hospital admission. Lab Data [facility] Lab Attestation statement: I reviewed the patient's lab results. My interpretation of these results are in the [facility] Rationale portion of this note. 03/26/25 12:31 03/26/25 12:31 Labs: Lab Results 03/26/25 Range/Units 12:31 WBC 10.9 H (4.8-10.8) X10*3/uL RBC 4.23 (4.20-5.50) X10*6/uL Hgb 13.0 (12.0-16.0) g/dl Hct 38.1 (37.0-47.0) % MCV 90.1 (80.0-98.0) fL MCH 30.7 (27.0-33.0) pg MCHC 34.1 (31.0-35.0) g/dl RDW 12.7 (11.0-16.0) % Plt Count 193 (160-400) X10*3/uL MPV 11.0 (9.4-12.3) fL Immature Gran % (Auto) 0.6 H (0.0-0.4) % Neut % (Auto) 78.6 H (45-73) % Lymph % (Auto) 13.2 L (20-40) % Gem % (Auto) 6.8 (2-11) % Eos % (Auto) 0.6 (0-4) % Baso % (Auto) 0.2 (0-2) % Lymph # (Auto) 1.4 (1.2-4.9) X10*3/uL Gem # (Auto) 0.7 (0.1-1.2) X10*3/uL Eos # (Auto) 0.1 (0.0-0.4) X10*3/uL Baso # (Auto) 0.0 (0.0-0.2) X10*3/uL Abs Immat Gran (auto) 0.06 H (0.00-0.03) X10*3/uL Absolute Neuts (auto) 8.6 H (2.0-8.3) x10*3/uL Absolute Nucleated RBC 0.000 (0.0-0.012) X10*3/uL Nucleated RBC % (auto) 0.0 (0.0-0.2) /100WBC Sodium 136 (135-145) mmol/L Potassium 4.0 (3.3-5.1) mmol/L Chloride 104 (96-108) mmol/L Carbon Dioxide 26 (22-29) mmol/L Anion Gap 10 L (12-20) BUN 6 L (9-16) mg/dL Creatinine 0.57 (0.5-1.4) mg/dL Estim Creat Clear Calc 146.7 Estimated GFR > 60 Random Glucose 111 (60-115) mg/dL Calcium 8.7 (8.4-10.2) mg/dL Magnesium 1.6 (1.6-2.6) mg/dL Total Bilirubin 0.2 (0.0-1.0) mg/dL Direct Bilirubin < 0.2 (0.0-0.5) mg/dL AST 20 (5-31) U/L ALT 13 (0-31) U/L Alkaline Phosphatase 68 (39-117) U/L Total Protein 6.5 (6.5-8.0) g/dL Albumin 3.7 (3.5-5.0) g/dL Beta HCG, Quant 32186 mIU/mL COVID-19 (MAUREEN) Negative (Negative) COVID-19 Clin Com See Note Influenza Type A (CALLI) Negative (Negative) Influenza Type B (CALLI) Negative (Negative) Influenza A & B Note See Note Independent Interpretation I performed an independent interpretation of an: EKG, Ultrasound and CT Scan Interpretation: My interpretation is in agreement with the radiologist's impression of these imaging studies. L Reason for Exam: clot rule out, , syncope CLINICAL HISTORY: clot rule out, , syncope Bilateral lower extremity venous duplex ultrasound. Comparison: None Technique: Real time sonographic imaging, including color-flow imaging and spectral analysis, was performed by the nurse emergency room. Multiple customer loyalty representative static images were saved for review. Findings: The deep venous systems of both lower extremities are fully compressible from common femoral through the proximal leg veins. There is spontaneous and phasic flow, and augmentation. Color Doppler and spectral tracings are unremarkable. Impression: 1. Bilateral lower extremity venous duplex ultrasound negative for DVT This document has been electronically signed by: Higinio Ramirez MD on 03/26/2025 14:12:17 Dictated By: Higinio Ramirez MD Signed By: Electronically signed by Higinio Ramirez MD 03/26/25 1413 Report Number: [id number]: Total DLP = 178.00 mGy-cm Reason for Exam: syncope, CLINICAL HISTORY: syncope, Exam: Contrast-enhanced chest CT pulmonary angiogram with multiplanar reformats. Comparison: None. Findings: There is no pulmonary embolism or thoracic aortic dissection. No mediastinal or hilar masses or adenopathy. No pleural or pericardial effusions. Images below the diaphragms reveal no acute abnormalities. Lungs are free of focal consolidation. Airways are patent. No pneumothorax. Osseous structures reveal no destructive osseous lesions. Impression: 1. No pulmonary embolism, aortic dissection or acute pulmonary disease. This document has been electronically signed by: Higinio Ramirez MD on 03/26/2025 16:09:07 Dictated By: Higinio Ramirez MD Signed By: Electronically signed by Higinio Ramirez MD 03/26/25 1609 I independently interpreted this EKG and am in agreement with the below findings: Vent. Rate: 71 BPM Atrial Rate: 71 BPM P-R Int: 114 ms QRS Dur: 92 ms QT Int: 384 ms P-R-T Axes: 79 77 65 degrees QTcB Int: 417 ms Normal sinus rhythm Normal ECG When compared with ECG of 06-Jan-2023 16:46, No significant change was found DD/ 1225 Radiology Impression Discussion of test interpretation with radiology: I have reviewed the radiologist's reading. Procedures Perimortem Number of Weeks : 14 Discharge Plan Discharge Clinical Impression: Vasovagal syncope, Second trimester Patient Disposition: Home, Self-Care Instructions: (ED), Syncope (DC) Additional Instructions: Your work up today was reassuring there is no EMERGENT cause for your symptoms. Please stay hydrated and follow up with your PCP and your OBGYN. IF you are prescribed home medications and/or you are taking over the counter medications at home - it is very important you continue to do so as prescribed / directed unless told otherwise. Follow up with your primary care provider. Return to the emergency department immediately if your symptoms worsen or if you develop any numbness, tingling, dizziness, shortness of breath, difficulty breathing, chest pain, blurry vision, loss of vision, nausea, vomiting, abdominal pain, fever, chills, back pain, or any other complaints. If you do not have a primary care provider - call any of the below numbers to establish and follow up with a primary care provider. [facility] Primary Care ([place]) [phone] [place] [address] [place], [address] [facility] Primary Care ([address] [place]) [phone] [address] [facility], [address] [place], [address] [facility] Primary Care ([address] [place]) [phone] [address] [facility], [address] [place], [address] [facility] Primary Care ([place]) [phone] [place] [address], [address] [facility], [address] [facility] Family Medicine [phone] [address] [facility], [address] Please see the information below about our Patient Portal. If you are not yet enrolled in the [facility] Patient Portal, you will receive an enrollment email invitation following your visit to any [facility] setting. You may also self-enroll in the Patient Portal by visiting our website: [email or web address] The following information is required to access the Patient Portal: - Your [facility] Medical Record Number - Your personal home email address (must match what is in your electronic medical record, Registration staff can assist with this) - Name - Date of Capabilities of the Patient Portal: - Message some providers - View upcoming appointments - Access your health summary, medical history, and visit history - View current conditions and allergies - View procedure and lab results - View your medications, including guidelines, side effects, and precautions - Complete pre-appointment questionnaires requested by your provider - Ready summary reports of your office visits and procedures To access the Patient Portal Mobile [employer], follow these directions: - Search [employer] in the [employer] Store or [employer] Store - Download the [employer] - Search for [facility] - Enter your login/password Prescriptions: No Action omeprazole magnesium [Prilosec OTC] 20 mg tablet,delayed release (DR/EC) 20 mg PO DAILY Qty: 30 0RF ondansetron 4 mg tablet,disintegrating 4 mg PO Q6-8H PRN (Reason: nausea and vomiting) Qty: 7 0RF omeprazole 20 mg capsule,delayed release(DR/EC) 20 mg PO DAILY Qty: 30 0RF omeprazole 10 mg capsule,delayed release(DR/EC) 10 mg PO DAILY Qty: 14 0RF ondansetron 4 mg tablet,disintegrating 4 mg PO ONCE PRN (Reason: nausea and vomiting) Qty: 10 0RF ibuprofen 600 mg tablet 600 mg PO Q6H PRN (Reason: pain) Qty: 30 0RF cyclobenzaprine 5 mg tablet 5 mg PO TID PRN (Reason: muscle spasm) Qty: 10 0RF ondansetron 4 mg tablet,disintegrating 4 mg PO Q8H 3 Days Qty: 9 0RF pyridoxine (vitamin B6) 10 mg tablet 10 mg PO DAILY Qty: 14 0RF cephalexin 500 mg capsule 500 mg PO Q6H 7 Days Qty: 28 0RF levofloxacin 500 mg tablet 500 mg PO DAILY Qty: 9 0RF ondansetron HCl 4 mg tablet 4 mg PO Q6H PRN (Reason: nausea and vomiting) Qty: 10 0RF Stand Alone Forms: Work/School Release Interventions: ED Discharge Assessment Last Done: 03/26/25 16:34 Discharge Date/Time: 03/26/25 16:37 Print Language: Albanian
[2025-03-26 12:17] VITALS: BP 109/70; PULSE 69; RESP 18; TEMP 36.2; O2SAT 100; BMI 22.8
--- NOTE | 2025-03-26 12:19 | ECG_ITS ---
Test Reason : syncope Blood Pressure : */* mmHG Vent. Rate : 71 BPM Atrial Rate : 71 BPM P-R Int : 114 ms QRS Dur : 92 ms QT Int : 384 ms P-R-T Axes : 79 77 65 degrees QTcB Int : 417 ms Normal sinus rhythm Normal ECG When compared with ECG of 06-Jan-2023 16:46, No significant change was found Referred By: Amira Guzmán Electronically Signed By: ABRAHAN GALLEGOS MD
--- OUTSIDE RECORDS SUMMARY | 2025-03-26 12:27 | XMS_ITS | Encounter Summary ---
Author Organization [facility] Address [address] [place] [address] [address] [place] [address] Care Team Providers Care Awning Frame Maker Name Role Phone Carley Spann HECTOR Primary Care Provider [phone] Reason for Visit * Reason Onset Date Comments Appointment 08/14/2022 Encounter Details Date Type Department Care Team (Late st Contact Info) Description 08/14/2022 Telephone [facility] ADULT DENTAL [address] [place] [address] Claire Lowe, DDS [address] [place] [address] Appointment Social History Tobacco Use Types Packs/Day [...] Description 05/23/2025 11:00 AM EST Office Visit [facility] OPTOMETRY [address] [place] [address] Ann-Marie Berg, OD [address] [place] [address] documented as of this encounter Visit Diagnoses Not on filedocumented in this encounter Care Teams Awning Frame Maker Relationship Specialty Start Date End Date Carley Spann FNP [address] [place] [address] PCP - General Family Medicine 12/09/21 documented as of this encounter
--- OUTSIDE RECORDS SUMMARY | 2025-03-26 12:27 | XMS_ITS | Encounter Summary ---
Author Organization [facility] Address [address] [place] [address] [address] [place] [address] Care Team Providers Care Rehab Aid Name Role Phone Carley Spann HECTOR Primary Care Provider [phone] Encounter Details Date Type Department Care Team (Latest Contact Info) Description 03/25/2025 Outside Procedure C OPTOMETRY [address] [place] [address] Ann-Marie Berg, OD [address] [place] [address] Myopia of both eyes (Primary Dx) Social History Tobacco Use Types Packs/Day Years [...] AM EDT documented as of this encounter Progress Notes * Ann-Marie Berg OD - 03/25/2025 1:28 PM EDT MH contact lens (CL) Order: Procedure code: V2520 Prior Authorization #: [id number] Dates: 02/24/2025-03/16/2026 Cost per unit: $44.60 Number of units: 2 Total cost: $89.20 documented in this encounter Plan of Treatment Upcoming Encounters Date Type Department Care Team ( Contact Info) Description 05/23/2025 11:00 AM EST Office Visit [facility] OPTOMETRY [address] [place] [address] Ann-Marie Berg, OD [address] [place] [address] documented as of this encounter Visit Diagnoses Diagnosis Myopia of both eyes- Primary documented in this encounter Care Teams Rehab Aid Relationship Specialty Start Date End Date Carley Spann FNP [address] [place] [address] PCP - General Family Medicine 12/09/21 documented as of this encounter
--- OUTSIDE RECORDS SUMMARY | 2025-03-26 12:27 | XMS_ITS | Clinical Summary ---
Author Organization [facility] Address [address] [address] Phone Care Team Providers Care Quarter Trimmer Name Role Phone Pcp, Unknown Primary Care [...] SMEAR 09/07/2020 Adult Td,Tdap Booster 01/07/2022 01/08/2012 INFLUENZA VACCINE (#1) 2024 COVID-19 VACCINE ( - 2024-2 6 season) 2025 HEPATITIS A VACCINES Aged Out No long [...] topic Medical Devices Not on file Insurance [facility] C3 ACO C3 ACO C3 ACO [employer] [id number] [place] [id number] [place] [id number] Care Teams Quarter Trimmer Relationship Specialty Start Date End Date Pcp, Unknown PCP - General 05/08/23 Additional Source Comments The information contained in this document represents components of the legal health record. It is not the complete legal health record.[facility]
--- OUTSIDE RECORDS SUMMARY | 2025-03-26 12:27 | XMS_ITS | Clinical Summary ---
Author Organization [employer] Address [address] [place] [address] [address] [place] [address] Care Team Providers Care Bullard Machine Operator Name Role Phone Carley Spann HECTOR Primary Care Provider [phone] Allergies Active Allergy Reactions Criticality Noted Date [...] if needed (asthma). 1 each 5 Active Active Problems Problem Noted Date Diagnosed Date Dental calculus 04/28/2023 Viral URI 09/10/2022 Acute low back pain 09/10/2022 Mixed anxiety and depressive disorder 09/10/2022 Weight loss 10/30/2018 Amblyopia of left eye 06/26/2017 Congenital exotropia of left eye 06/26/2017 Myopia 02/09/2016 Resolved Problems Problem Noted Date Diagnosed Date Resolved Date Tobacco dependence 06/18/2024 5 Encounters Date Type Department Care Team Description 03/25/2025 Outside Procedure [facility] [address] [place] [address] Ann-Marie Berg, OD Myopia of both eyes (Primary Dx) 03/04/2025 Population Health Risk Score [facility] () Department [address] [place] [id number] Provider, Population Health Generic 01/19/2025 Results Follow-Up [facility] [address] [place] [address] Yahir Orlando MD Bacterial Vaginosis, Chlamydia/N. Gonorrhoeae RNA, TMA, Urogenitial 01/18/2025 1:00 PM EDT Office Visit [facility] [address] [place] [address] Yahir Orlando MD Vaginosis (Primary Dx) 01/18/2025 Travel 01/07/2025 Telephone [facility] [address] [place] [address] Carley Spann FNP Referral from Last 3 [...] Description 05/23/2025 11:00 AM EST Office Visit [facility] [address] [place] [address] Otis, Ann-Marie, OD [address] [place] [address] Health Maintenance Due Date Last Done Comments [...] 10/17/2022, Additional history exists COVID-19 Vaccine ( season) 2025 Influenza Vaccine (#1) 2025 02/01/2011 [...] DETECTION BY PCR NOT DETECTED Not Detect [facility] BACTERIAL VAGINOSIS DETECTION BY PCR POSITIVE(A) Negative [facility] Comment:The BV organism targ ets [...] DETECTION BY PCR NOT DETECTED Not Detect [facility] Mari glab krusei PCR NOT DETECTED Not Detect [facility] Swab Vaginal structure / Unknown 01/18/2025 1:04 PM EDT 01/18/2025 4:41 PM EDT us Yahir Orlando MD LAB MICROBIOLOGY - GENERAL ORDER BLANCA Final Result [facility] [address] [place] [address] [phone] * Chlamydia/N. Gonorrhoeae RNA, TMA, Urogenitial (01/18/2025 1:04 PM EDT) CT PCR NOT DETECTED Not Detect. [facility] Comment:A not detected test result [...] psychologicalconsequences. NG PCR NOT DETECTED Not Detect. [facility] Comment:A not detected test result [...] EDT 01/18/2025 4:41 PM EDT us Yahir Orlando MD LAB MICROBIOLOGY - GENERAL ORDER BLANCA Final Result Performing Organization Address [facility]/ZIP Co de Phone Number [facility] [address] [place] [phone] * Hepatitis C Antibody with Reflex to HCV, RNA, Quantitative, Real-Time PCR (10/07/2024 11:07 AM EDT) Hepatitis C Antibody Nonreactive Nonreactive [facility] Comment:Antibodies to HCV no t detected; does not exclude early acuteHCV infection. Blood Venous blood specimen / Unknown 10/07/2024 11:07 AM EDT 10/07/2024 12:58 PM EDT Eve Alexandre DO LAB BLOOD ORDERABLES Final R esult Performing Organization Address [facility] Co de Phone Number [facility] [address] [place] [phone] * HIV-1/2 Antigen and Antibodies, Fourth Generation, with Reflexes (10/07/2024 11:07 AM EDT) HIV AB/AG Nonreactive Nonreactive [facility] Comment:HIV-1 p24 Ag and/or HIV-1/HIV-2 Ab not detected.A test result that is nonreactive does not exclude thepossibility of exposure to or infection with HIV-1 and/orHIV-2. Nonreactive results in this assay for individualswith prior exposure to HIV-1 and/or HIV-2 may be due toantigen and antibody levels that are below the limit ofdetection of this assay.The [employer] HIV Ag/Ab Combo assay result andsupplemental assay results should be interpreted inconjunction with the patient's clinical presentation,history and other laboratory results. If the results areinconsistent with clinical evidence, additional testing issuggested to confirm the result. Blood Venous blood specimen / Unknown 10/07/2024 11:07 AM EDT 10/07/2024 12:58 PM EDT us Eve Alexandre DO LAB BLOOD ORDERABLES Final R esult [facility] [address] [place] [address] [phone] from Last 3 Months or Most Recently Relevant to Health Maintenance Insurance [facility] C3 DENTAL-[facility] MEDICAID STAND ADULT DENTAL - HSN PARTIAL (MEDICAID) Care Teams Bullard Machine Operator Relationship Specialty Start Date End Date Carley Spann FNP [address] [place] [phone] PCP - General Family Medicine 12/09/21
[2025-03-26 12:37] LABS: MANUAL DIFF FLAG NO
[2025-03-26 12:55] LABS: Hematocrit 38.1 % (37.0-47.0); Hemoglobin 13.0 g/dl (12.0-16.0); IDNOW Serial# 58CA691E; Imm Gran Abs Auto 0.06 X10*3/uL (0.00-0.03); Imm Gran Pct Auto 0.6 % (0.0-0.4); Influenza B2 Negative (Negative); Lymphocytes Absolute Auto 1.4 X10*3/uL (1.2-4.9); Mean Corpuscular HGB Conc 34.1 g/dl (31.0-35.0); Mean Corpuscular Hemoglobin 30.7 pg (27.0-33.0); Mean Corpuscular Volume 90.1 fL (80.0-98.0); NRBC Abs Auto 0.000 X10*3/uL (0.0-0.012); NRBC Pct Auto 0.0 /100WBC (0.0-0.2); Platelet Count 193 X10*3/uL (160-400); Red Blood Count 4.23 X10*6/uL (4.20-5.50); White Blood Count 10.9 X10*3/uL (4.8-10.8)
[2025-03-26 12:56] LABS: COVID-19 Test Negative (Negative); IDNOW Serial# 55D5AD1C
[2025-03-26 13:07] LABS: Alanine Aminotransferase 13 U/L (0-31); Albumin Level 3.7 g/dL (3.5-5.0); Alkaline Phosphatase 68 U/L (39-117); Anion Gap 10 (12-20); Aspartate Amino Transferase 20 U/L (5-31); Blood Urea Nitrogen 6 mg/dL (9-16); Calcium 8.7 mg/dL (8.4-10.2); Carbon Dioxide 26 mmol/L (22-29); Chloride 104 mmol/L (96-108); Creatinine Clr Calc Pharmacy 146.7; Estimated Glomerular Filt Rate > 60; Magnesium 1.6 mg/dL (1.6-2.6); Potassium 4.0 mmol/L (3.3-5.1); Sodium 136 mmol/L (135-145); Total Protein 6.5 g/dL (6.5-8.0)
--- NOTE | 2025-03-26 13:15 | PC.NURSE ---
Ultrasound at bedside with patient
[2025-03-26 14:33] VITALS: BP 105/57; PULSE 56; RESP 16; O2SAT 100
[2025-03-26 14:34] VITALS: BP 112/60; BP 116/68; PULSE 62; PULSE 71
[2025-03-26] MEDS: iohexoL 350 MG/ML 100 ML INFUS..BTL IV (14:49)
[2025-03-26 16:34] VITALS: BP 116/66; PULSE 71; RESP 18; TEMP 36.6; O2SAT 98
== END 2025-03-26 16:37 | disposition home or self-care (01) ==
PROVIDERS: Physician Assistant; Emergency Provider Emergency Medicine Emergency Medical Services
DX: O26.892 Other specified pregnancy related conditions, second trimester (principal); R55 Syncope and collapse; Z3A.14 14 weeks gestation of pregnancy; Z03.818 Encounter for observation for suspected exposure to other biological agents ruled out
CPT/HCPCS: 71275; 80048; 80076; 83735; 84702; 85025; 87502; 87635; 93005; 93970; 96360; 96361; 99285; Q9967

== ENCOUNTER → 2025-03-26 12:19 | Outpatient (BNV) | payer MEDICAID, SELFPAY | PROVIDERS: Emergency Provider Emergency Medicine Emergency Medical Services; Visit Provider Internal Medicine Cardiovascular Disease | DX: R55 Syncope and collapse (principal) | CPT/HCPCS: 93010 ==

== ENCOUNTER → 2025-03-26 13:26 | Outpatient (BNV) | payer MEDICAID, SELFPAY | PROVIDERS: Visit Provider Radiology Diagnostic Radiology | DX: R55 Syncope and collapse (principal); Z33.1 Pregnant state, incidental | CPT/HCPCS: 71275; 93970 ==

== ENCOUNTER 2025-04-21 11:12 | Emergency (ER) | payer MEDICAID, SELFPAY ==
--- NOTE | ~2025-04-21 | US_ITS ---
EXAMINATION: US , LIMITED CLINICAL INFORMATION: Lower abdominal pain COMPARISON: None available. TECHNIQUE: Limited transabdominal grayscale imaging was performed through the uterus with B mode imaging FINDINGS: There is an intrauterine gestation. The placenta is mostly anterior. heart rate measures 155 bpm. Cervix length is 34 mm. US/US OB limited IMPRESSION: Single living intrauterine gestation. Cervical length is within normal limits. Electronically signed by: Ricki Garcia MD 04/21/2025 01:17 PM EST
[2025-04-21 11:16] VITALS: BP 110/56; PULSE 70; RESP 20; TEMP 36.5; O2SAT 100; BMI 23.8
--- NOTE | 2025-04-21 11:22 | ED.GENADULT ---
HPI - General Adult General Chief complaint: Abdominal Pain Stated complaint: Dizziness Time Seen by Provider: 04/21/25 13:19 Source: patient and family (mother in law) Mode of arrival: ambulatory Limitations: no limitations History of Present Illness ED Provider: BRIDGETTE PEOPLES PA-C HPI narrative: 24 year old female, , currently 19 weeks , presents to the ED today for evaluation of lower abdominal pain x2 days. Endorses associated nausea and vomiting. Normal PO intake. She did not trial any medications at home for her symptoms. She currently follows with [facility]. No known complications with current . She did not contact them regarding her symptoms. Denies hx of abdominal surgeries. Denies fever, chills, flank pain, urinary sx, vaginal discharge or bleeding, constipation, diarrhea. On my evaluation, patient has a pile of food next to her bed. She is eating a sandwhich. Denies any nausea. Related Data Previous Rx's ?Medication ?Instructions ?Recorded omeprazole magnesium 20 mg 20 mg PO DAILY #30 tabs 05/05/20 tablet,delayed release (Prilosec OTC) ondansetron 4 mg disintegrating 4 mg PO Q6-8H PRN nausea and 05/05/20 tablet vomiting #7 tabs omeprazole 20 mg capsule,delayed 20 mg PO DAILY #30 caps 08/01/21 release omeprazole 10 mg capsule,delayed 10 mg PO DAILY #14 caps 11/19/21 release ondansetron 4 mg disintegrating 4 mg PO ONCE PRN nausea and 11/19/21 tablet vomiting #10 tabs cyclobenzaprine 5 mg tablet 5 mg PO TID PRN muscle spasm #10 12/02/22 tabs ibuprofen 600 mg tablet 600 mg PO Q6H PRN pain #30 tabs 12/02/22 levofloxacin 500 mg tablet 500 mg PO DAILY #9 tabs 01/06/23 ondansetron HCl 4 mg tablet 4 mg PO Q6H PRN nausea and 01/06/23 vomiting #10 tabs cephalexin 500 mg capsule 500 mg PO Q6H 7 days #28 caps 02/03/25 ondansetron 4 mg disintegrating 4 mg PO Q8H 3 days #9 tabs 02/03/25 tablet pyridoxine (vitamin B6) 10 mg 10 mg PO DAILY #14 tabs 02/03/25 tablet Allergies Allergy/AdvReac Type Severity Reaction Status Date / Time Penicillins (PENICILLINS) Allergy Unknown UNKNOWN Verified 04/21/25 11:19 Review of Systems Review of Systems: Yes all other systems are reviewed and are negative [facility] Past Medical History Attestation statement: The following information was validated with the patient. Source: old records reviewed and nursing notes reviewed Medical History No known health problems Social History Social History Alcohol intake: never Smoked in Last 30 Days: No Use of substances other than those prescribed or required for medical reasons: No Advance Directives: No Advance Directives Information Provided: Yes Do you have a plan to hurt others: No Plan Patient : No Physical Exam ED Vital Signs: Vital Signs - 24 hr 04/21/25 11:16 04/21/25 14:39 04/21/25 14:48 Temperature 97.7 F 98.2 F 98.2 F Pulse Rate 70 77 77 Respiratory Rate 20 18 18 Blood Pressure 110/56 L 107/57 L 107/57 L Pulse Oximetry 100 99 99 Oxygen Delivery Method Room Air Room Air Room Air BMI result Body Mass Index 23.8 vital signs stable General: Well appearing, in no acute distress. Skin: Warm, dry, intact. No rashes or lesions. Head: Normocephalic, atraumatic. EENT: Hearing is intact b/l. Conjunctiva clear. PERRLA. EOM intact. Moist mucous membranes.? Neck: Supple without LAD Cardiac: Chest wall symmetric. RRR Lungs: Normal respiratory effort without accessory muscle use. CTA bilaterally Abdomen: +gravid abdomen, soft, NT, no rebound/guarding. no cvat. Back: No midline spinous or paraspinal tenderness. No step off deformity. Ext: Upper and lower extremities atraumatic, without tenderness, deformity, swelling or erythema. Full ROM throughout Neuro: AOx3. Normal speech. Ambulating with steady gait. Course Course Course Narrative: RME: 24-year-old female 5 months presents to ED for lower abdominal pain, dizziness and vomiting for the past 2 days. Patient presents to ED for evaluation. Reevaluation(s) Reevaluation #1: CBC with slight leukocytosis to 11.6. likely related to . h&h stable. chemistry without acute electrolyte abnormality requiring intervention. no bibiana. liver function. beta hcg [address]. urine without infection or blood. Ob ultrasound showing single living intrauterine gestation, cervical length within normal limits. > patient's exam is quite benign. She is in her room, eating. Denies any nausea or vomiting at present. He has been medicated with Tylenol. > I discussed case with my attending dr. maria who has also evaluated patient at bedside. She states she feels well, symptoms have improved after eating. we have extremely low suspicion for acute abdomen at this time. > she has plans to follow up with ahsan alvarado. we discussed worrisome s/sx and when to return to the ED. she verbalizes understanding and is anxious for discharge at this time. Medications Administered Discontinued Medications Generic Name Dose Route Start Last Admin Trade Name Freq PRN Reason Stop Dose Admin Acetaminophen 975 mg 04/21/25 13:42 04/21/25 14:22 Acetaminophen 325 Mg Tablet PO 04/21/25 13:43 975 mg ONCE ONE Administration Medical Decision Making Medical Decision Making [facility] Narrative: 24 year old female, , currently 19 weeks , presents to the ED today for evaluation of lower abdominal pain x2 days. vital signs stable, afebrile. she is well appearing, in NAD. sitting on the exam bed comfortably, eating a sandwhich. gravid abdomen, soft, NT, no rebound/guarding. no cvat. Differential diagnosis includes IUP, UTI, constipation, anemia, electrolyte abnormality, hyperemesis gravidarum Unlikely acute abdomen, SBO, appendicitis. Plan for labs, UA, OB US, pain control, re-evaluation. Differential Diagnosis Differential Diagnoses: The differential diagnosis associated with the presentation includes as above. Admission/Observation not indicated. Lab Data [facility] Lab Attestation statement: I reviewed the patient's lab results. as above. 04/21/25 11:57 04/21/25 11:57 Labs: Lab Results 04/21/25 Range/Units 11:57 WBC 11.6 H (4.8-10.8) X10*3/uL RBC 4.04 L (4.20-5.50) X10*6/uL Hgb 12.7 (12.0-16.0) g/dl Hct 37.2 (37.0-47.0) % MCV 92.1 (80.0-98.0) fL MCH 31.4 (27.0-33.0) pg MCHC 34.1 (31.0-35.0) g/dl RDW 12.5 (11.0-16.0) % Plt Count 198 (160-400) X10*3/uL MPV 10.4 (9.4-12.3) fL Immature Gran % (Auto) 0.6 H (0.0-0.4) % Neut % (Auto) 77.9 H (45-73) % Lymph % (Auto) 12.7 L (20-40) % Sharkey % (Auto) 7.9 (2-11) % Eos % (Auto) 0.6 (0-4) % Baso % (Auto) 0.3 (0-2) % Lymph # (Auto) 1.5 (1.2-4.9) X10*3/uL Sharkey # (Auto) 0.9 (0.1-1.2) X10*3/uL Eos # (Auto) 0.1 (0.0-0.4) X10*3/uL Baso # (Auto) 0.0 (0.0-0.2) X10*3/uL Abs Immat Gran (auto) 0.07 H (0.00-0.03) X10*3/uL Absolute Neuts (auto) 9.0 H (2.0-8.3) x10*3/uL Absolute Nucleated RBC 0.000 (0.0-0.012) X10*3/uL Nucleated RBC % (auto) 0.0 (0.0-0.2) /100WBC PT 11.5 (11.2-13.5) SEC INR 0.9 (0.9-1.1) APTT 25.6 L (26.7-34.1) SEC Sodium 136 (135-145) mmol/L Potassium 3.8 (3.3-5.1) mmol/L Chloride 108 (96-108) mmol/L Carbon Dioxide 24 (22-29) mmol/L Anion Gap 8 L (12-20) BUN 8 L (9-16) mg/dL Creatinine 0.57 (0.5-1.4) mg/dL Estim Creat Clear Calc 146.7 Estimated GFR > 60 Random Glucose 73 (60-115) mg/dL Calcium 8.5 (8.4-10.2) mg/dL Total Bilirubin 0.2 (0.0-1.0) mg/dL AST 17 (5-31) U/L ALT 8 (0-31) U/L Alkaline Phosphatase 68 (39-117) U/L Total Protein 6.2 L (6.5-8.0) g/dL Albumin 3.3 L (3.5-5.0) g/dL Lipase 30 (8-78) U/L Beta HCG, Quant 42464 mIU/mL Urine Color Yellow Urine Appearance Clear Urine pH 7.0 (5.0-9.0) Ur Specific [place] 1.020 (1.005-1.025) Urine Protein Negative (Neg-Trace) mg/dL Urine Glucose (UA) Negative (Negative) mg/dL Urine Ketones Negative (Negative) mg/dL Urine Blood Negative (Negative) Urine Nitrite Negative (Negative) Ur Leukocyte Esterase Negative (Negative) Blood Type B Positive Independent Interpretation I performed an independent interpretation of an: Ultrasound Interpretation: OB US showing IUP Radiology Impression Discussion of test interpretation with radiology: I have reviewed the radiologist's reading. Radiologist Impression: Procedure(s): US OB limited Accession Number(s): [id number] cc: Evelio Veliz; [facility]~ Reason for Exam: Lower abdominal pain EXAMINATION: US , LIMITED CLINICAL INFORMATION: Lower abdominal pain COMPARISON: None available. TECHNIQUE: Limited transabdominal grayscale imaging was performed through the uterus with B mode imaging FINDINGS: There is an intrauterine gestation. The placenta is mostly anterior. heart rate measures 155 bpm. Cervix length is 34 mm. US/US OB limited IMPRESSION: Single living intrauterine gestation. Cervical length is within normal limits. Electronically signed by: Ricki Garcia MD 04/21/2025 01:17 PM [facility] [place] Discharge Clinical Impression: Patient Disposition: Home, Self-Care Instructions: at 19 to 22 Weeks (ED) Additional Instructions: Your workup in the ED today is quite reassuring. You report improvement in symptoms after eating. I recommend that you follow up with [facility]. Continue all home meds as prescribed. You may take over the counter unysom as needed for nausea/vomiting. Return with any new or worsening symptoms. In the case of an emergency call 911. Prescriptions: No Action omeprazole magnesium [Prilosec OTC] 20 mg tablet,delayed release (DR/EC) 20 mg PO DAILY Qty: 30 0RF ondansetron 4 mg tablet,disintegrating 4 mg PO Q6-8H PRN (Reason: nausea and vomiting) Qty: 7 0RF omeprazole 20 mg capsule,delayed release(DR/EC) 20 mg PO DAILY Qty: 30 0RF omeprazole 10 mg capsule,delayed release(DR/EC) 10 mg PO DAILY Qty: 14 0RF ondansetron 4 mg tablet,disintegrating 4 mg PO ONCE PRN (Reason: nausea and vomiting) Qty: 10 0RF ibuprofen 600 mg tablet 600 mg PO Q6H PRN (Reason: pain) Qty: 30 0RF cyclobenzaprine 5 mg tablet 5 mg PO TID PRN (Reason: muscle spasm) Qty: 10 0RF ondansetron 4 mg tablet,disintegrating 4 mg PO Q8H 3 Days Qty: 9 0RF pyridoxine (vitamin B6) 10 mg tablet 10 mg PO DAILY Qty: 14 0RF cephalexin 500 mg capsule 500 mg PO Q6H 7 Days Qty: 28 0RF levofloxacin 500 mg tablet 500 mg PO DAILY Qty: 9 0RF ondansetron HCl 4 mg tablet 4 mg PO Q6H PRN (Reason: nausea and vomiting) Qty: 10 0RF Referrals: [facility] [Primary Care Provider, Medical] Stand Alone Forms: Work/School Release Interventions: ED Discharge Assessment Last Done: 04/21/25 14:48 Discharge Date/Time: 04/21/25 14:50 Print Language: Wallisian
[2025-04-21 12:03] LABS: MANUAL DIFF FLAG NO
[2025-04-21 12:05] LABS: Hematocrit 37.2 % (37.0-47.0); Hemoglobin 12.7 g/dl (12.0-16.0); Imm Gran Abs Auto 0.07 X10*3/uL (0.00-0.03); Imm Gran Pct Auto 0.6 % (0.0-0.4); Lymphocytes Absolute Auto 1.5 X10*3/uL (1.2-4.9); Mean Corpuscular HGB Conc 34.1 g/dl (31.0-35.0); Mean Corpuscular Hemoglobin 31.4 pg (27.0-33.0); Mean Corpuscular Volume 92.1 fL (80.0-98.0); NRBC Abs Auto 0.000 X10*3/uL (0.0-0.012); NRBC Pct Auto 0.0 /100WBC (0.0-0.2); Platelet Count 198 X10*3/uL (160-400); Red Blood Count 4.04 X10*6/uL (4.20-5.50); White Blood Count 11.6 X10*3/uL (4.8-10.8)
[2025-04-21 12:07] LABS: Appearance Urine Clear; Glucose Urine UA Negative (Negative); PH 7.0 (5.0-9.0); Specific Gravity - Urine 1.020 (1.005-1.025)
[2025-04-21 12:18] LABS: INTERNATIONAL NORM RATIO 0.9 (0.9-1.1); Prothrombin Time 11.5 SEC (11.2-13.5)
[2025-04-21 12:21] LABS: Partial Thromboplastin Time 25.6 SEC (26.7-34.1)
[2025-04-21 12:31] LABS: Alanine Aminotransferase 8 U/L (0-31); Albumin Level 3.3 g/dL (3.5-5.0); Alkaline Phosphatase 68 U/L (39-117); Anion Gap 8 (12-20); Aspartate Amino Transferase 17 U/L (5-31); Blood Urea Nitrogen 8 mg/dL (9-16); Calcium 8.5 mg/dL (8.4-10.2); Carbon Dioxide 24 mmol/L (22-29); Chloride 108 mmol/L (96-108); Creatinine Clr Calc Pharmacy 146.7; Estimated Glomerular Filt Rate > 60; Lipase 30 U/L (8-78); Potassium 3.8 mmol/L (3.3-5.1); Sodium 136 mmol/L (135-145); Total Protein 6.2 g/dL (6.5-8.0)
[2025-04-21 14:39] VITALS: BP 107/57; PULSE 77; RESP 18; TEMP 36.8; O2SAT 99
[2025-04-21 14:48] VITALS: BP 107/57; PULSE 77; RESP 18; TEMP 36.8; O2SAT 99
--- OUTSIDE RECORDS SUMMARY | 2025-04-21 17:51 | XMS_ITS | Encounter Summary ---
Author Organization Maintenance Assistant [facility] Address [address] [place] [address] [address] [place] [address] Care Team Providers Care Flat Surfacer Jewel Name Role Phone Carley Spann HECTOR Primary Care Provider [phone] Encounter Details Date Type Department Care Team (Late st Contact Info) Description 04/21/2025 Orders Only GENERIC EXTERNAL DATA DEPARTMENT Provider, Generic External Data Social History Tobacco Use Types Packs/Day Years [...] as of this encounter Plan of Treatment Upcoming Encounters Date Type Department Care Team (Late st Contact Info) Description 05/23/2025 11:00 AM EST Office Visit [facility] OPTOMETRY [address] [place] [address] Otis, Ann-Marie, OD [address] [facility] [place] [address] documented as of this encounter Procedures Procedure Name Priority Date/Time Associated Diagnosis Comments US OB LIMITED 1+ FETUSES Routine 04/21/2025 12:10 PM EST CBC WITH AUTO DIFFERENTIAL Routine 04/21/2025 11:57 AM EST ABO GROUP AND RH TYPE Routine 04/21/2025 11:57 AM EST URINALYSIS WITH REFLEX MICROSCOPIC Routine 04/21/2025 11:57 AM EST APTT Routine 04/21/2025 11:57 AM EST PROTHROMBIN TIME-INR Routine 04/21/2025 11:57 AM EST HCG, TOTAL, QN Routine 04/21/2025 11:57 AM EST LIPASE Routine 04/21/2025 11:57 AM EST COMPREHENSIVE METABOLIC PANEL Routine 04/21/2025 11:57 AM EST documented in this encounter Results * US OB Limited 1+ Fetuses (04/21/2025 12:10 PM EST) Anatomical Region Laterality Modality Body Ultrasound 04/21/2025 12:1 0 PM EST Narrative 04/21/2025 1:20 PM EST [place] [address] Ultrasound Report Signed Patient: Perla Kowalski MR#: [id number] : 2000 Acct:[id number] Age/Sex: 24 / F ADM Date: 04/21/25 Loc: .ED Attending Dr: Ordering Physician: Evelio Veliz Date of Service: 04/21/25 Procedure(s): US OB limited Accession Number(s): [id number] cc: Evelio Veliz; [facility] Reason for Exam: Lower abdominal pain EXAMINATION: US , LIMITED CLINICAL INFORMATION: Lower abdominal pain COMPARISON: None available. TECHNIQUE: Limited transabdominal grayscale imaging was performed through the uterus with B mode imaging FINDINGS: There is an intrauterine gestation. The placenta is mostly anterior. heart rate measures 155 bpm. Cervix length is 34 mm. US/US OB limited IMPRESSION: Single living intrauterine gestation. Cervical length is within normal limits. Electronically signed by: Ricki Garcia MD 04/21/2025 01:17 PM EST Dictated By: Ricki Garcia MD Signed By: <Electronically signed by Ricki Garcia MD in OV> 04/21/25 1317 DD/ 1210 TD/TT: 04/21/251214 [employer] Sales Representative: Procedure Note Liuter, Image - 04/21/2025 [place] [address] Ultrasound Report Signed Patient: Perla Kowalski LMR#: [id number] : 2000Acct:[id number] Age/Sex: 24 / FADM Date: 04/21/25 Loc: .ED Attending Dr: Ordering Physician: Evelio Veliz Date of Service: 04/21/25 Procedure(s): US OB limited Accession Number(s): [id number] cc: Evelio Veliz; [facility] Reason for Exam: Lower abdominal pain EXAMINATION: US , LIMITED CLINICAL INFORMATION: Lower abdominal pain COMPARISON: None available. TECHNIQUE: Limited transabdominal grayscale imaging was performed through the uterus with B mode imaging FINDINGS: There is an intrauterine gestation. The placenta is mostly anterior. heart rate measures 155 bpm. Cervix length is 34 mm. US/US OB limited IMPRESSION: Single living intrauterine gestation. Cervical length is within normal limits. Electronically signed by: Ricki Garcia MD 04/21/2025 01:17 PM EST Dictated By: Ricki Garcia MD Signed By: <Electronically signed by Ricki Garcia MD in OV> 04/21/25 1317 DD/ 1210 TD/TT: 04/21/25 121 [employer] Sales Representative: us [facility] External Provider IMG OB US PROCEDURES Final Result * ABO Group And RH Type (04/21/2025 11:57 AM EST) Blood Type BP [facility] Comment:RH IMMUNE GLOBULIN I NDICATED: NO 04/21/2025 11:5 7 AM EST 04/21/2025 12:01 PM EST Generic External Data Provider LAB BLOOD BANK TE ST ORDERABLES Final Result Performing Organization Address [facility] Co de Phone Number [facility] [address] [place] [address] [phone] * hCG, Total, Quantitative (04/21/2025 11:57 AM EST) HCG Quantitative 24,527 mIU/mL [facility] Comment:Weeks post LMP Appro ximate hCG(Last Menstrual Period) Range (mIU/ml)3 - 4 weeks 9 - 1304 - 5 weeks 75 - 2,6005 - 6 weeks 850 - 20,8006 - 7 weeks 4000 - 100,2007 - 12 weeks 11,500 - 289,71639 - 16 weeks 18,300 - 137,99150 - 29 weeks (2nd trimester) 1,400 - 53,69574 - 41 weeks (3rd trimester) 940 - 60,000The [place] B- hCG assay is used for the early detection ofpregnancy; it cannot be used to diagnose any conditionunrelated to . If a B-hCG level is not supportedby the clinical evidence, results should be confirmed by analternative method (qualitative urine hCG, for example). 04/21/2025 11:5 7 AM EST 04/21/2025 12:01 PM EST Generic External Data Provider LAB BLOOD ORDERAB LES Final Result Performing Organization Address [facility] Co de Phone Number [facility] [address] [place] [phone] * Lipase (04/21/2025 11:57 AM EST) Lipase 30 8 - 78 U/L [facility] 04/21/2025 11:5 7 AM EST 04/21/2025 12:01 PM EST Generic External Data Provider LAB BLOOD ORDERAB LES Final Result [facility] [address], [place] [phone] * (ABNORMAL) Comprehensive Metabolic Panel (04/21/2025 11:57 AM EST) Sodium 136 135 - 145 mmol/L [facility] Potassium 3.8 3.3 - 5.1 mmol/L [facility] Chloride 108 96 - 108 mmol/L [facility] Carbon Dioxide 24 22 - 29 mmol/L [facility] Anion Gap 8(L) 12 - 20 [facility] Urea Nitrogen (BUN) 8(L) 9 - 16 mg/dL [facility] Creatinine, Serum 0.57 0.5 - 1.4 mg/dL [facility] Creatinine Clr Calc Pharmacy 146.7 [facility] Comment:Provided height and weight: 170.18 cm,69 kg.eGFR (calculated from the MDRD study equation) and eCrCl(calculated from the Cockcroft-Gault equation) are based ondifferent parameters and may not yield comparable results.If eCrCl result is absurd, please check patient'sheight/weight. Estimated Glomerular Filt Rate >60 [facility] Comment:Chronic Kidney Disea se: Estimated GFR < 60 mL/min/1.29d3Jyekcd Kidney Disease: Estimated GFR < 15 mL/min/1.73m2 Glucose 73 60 - 115 mg/dL [facility] Calcium 8.5 8.4 - 10.2 mg/dL [facility] Bilirubin, Total 0.2 0.0 - 1.0 mg/dL [facility] Aspartate Amino Transferase 17 5 - 31 U/L [facility] Alanine Aminotransferase 8 0 - 31 U/L [facility] Total Protein 6.2(L) 6.5 - 8.0 g/dL [facility] Albumin Level 3.3(L) 3.5 - 5.0 g/dL [facility] Alkaline Phosphatase 68 39 - 117 U/L [facility] 04/21/2025 11:5 7 AM EST 04/21/2025 12:01 PM EST us Generic External Data Provider LAB BLOOD ORDERAB LES Final Result Performing Organization Address [facility] Co de Phone Number [facility] [address] [place] [phone] * (ABNORMAL) Partial Thromboplastin Time, Activated (APTT) (04/21/2025 11:57 AM EST) Partial Thromboplastin Time 25.6(L) 26.7 - 34.1 SEC [facility] 04/21/2025 11:5 7 AM EST 04/21/2025 12:01 PM EST us Generic External Data Provider LAB BLOOD ORDERAB LES Final Result Performing Organization Address [facility] de Phone Number [facility] [address] [place] [phone] * Prothrombin Time-INR (04/21/2025 11:57 AM EST) Prothrombin Time 11.5 11.2 - 13.5 SEC [facility] INTERNATIONAL NORM RATIO 0.9 0.9 - 1.1 [facility] Comment:INTERNATIONAL NORMAL IZED RATIO (INR) REFERENCE RANGES Reference RangeFor patients not on anticoagulant therapy: 0.9 - 1.1INR ranges for oral anticoagulanttherapy:For prevention and treatment of venous thrombosis and pulmonary embolism: 2.0 - 3.0For acute myocardial infarction with aspirin therapy: 2.0 - 3.0For acute myocardial infarction without aspirin therapy: 3.0 - 4.0For patients with mechanical prosthetic heart valves: 2.5 - 3.5 04/21/2025 11:5 7 AM EST 04/21/2025 12:01 PM EST us Generic External Data Provider LAB BLOOD ORDERAB LES Final Result Performing Organization Address [facility] Co de Phone Number [facility] [address] [place] [phone] * Urinalysis w/reflex microscopic (04/21/2025 11:57 AM EST) Color Urine Yellow [facility] Appearance Urine Clear [facility] PH 7.0 5.0 - 9.0 [facility] Glucose Urine UA Negative Negative mg/dL [facility] Urine Blood Negative Negative [facility] Specific Michael - Urine 1.020 1.005 - 1.025 [facility] Urine Protein Negative Neg-Trace mg/dL [facility] Urine Ketones Negative Negative mg/dL [facility] Nitrite Urine Negative Negative [facility] Leukocyte Esterase Urine Negative Negative [facility] 04/21/2025 11:5 7 AM EST 04/21/2025 12:01 PM EST Narrative [facility] - 04/21/2025 12:07 PM EST [id number], [employer] us Generic External Data Provider LAB URINE ORDERAB LES Final Result [facility] [address] [place] [phone] * (ABNORMAL) CBC auto differential (04/21/2025 11:57 AM EST) White Blood Count 11.6(H) 4.8 - 10.8 X10*3/uL [facility] Red Blood Count 4.04(L) 4.20 - 5.50 X10*6/uL [facility] Hemoglobin 12.7 12.0 - 16.0 g/dl [facility] Hematocrit 37.2 37.0 - 47.0 % [facility] Mean Corpuscular Volume 92.1 80.0 - 98.0 fL [facility] Mean Corpuscular Hemoglobin 31.4 27.0 - 33.0 pg [facility] Mean Corpuscular HGB Conc 34.1 31.0 - 35.0 g/dl [facility] Red Cell Distribution Width 12.5 11.0 - 16.0 % [facility] Platelet Count 198 160 - 400 X10*3/uL [facility] Mean Platelet Volume 10.4 9.4 - 12.3 fL [facility] Neutrophils Percent Auto 77.9(H) 45 - 73 % [facility] Imm Gran Pct Auto 0.6(H) 0.0 - 0.4 % [facility] Lymphocytes Percent Auto 12.7(L) 20 - 40 % [facility] Monocytes Percent Auto 7.9 2 - 11 % [facility] Eosinophils Percent Auto 0.6 0 - 4 % [facility] Basophils Percent Auto 0.3 0 - 2 % [facility] NRBC Pct Auto 0.0 0.0 - 0.2 /100WBC [facility] Neutrophils Absolute Auto 9.0(H) 2.0 - 8.3 x10*3/uL [facility] Imm Gran Abs Auto 0.07(H) 0.00 - 0.03 X10*3/uL [facility] Lymphocytes Absolute Auto 1.5 1.2 - 4.9 X10*3/uL [facility] Monocytes Absolute Auto 0.9 0.1 - 1.2 X10*3/uL [facility] Eosinophils Absolute Auto 0.1 0.0 - 0.4 X10*3/uL [facility] Basophils Absolute Auto 0.0 0.0 - 0.2 X10*3/uL [facility] NRBC Abs Auto 0.000 0.0 - 0.012 X10*3/uL [facility] 04/21/2025 11:5 7 AM EST 04/21/2025 12:01 PM EST us Generic External Data Provider LAB BLOOD ORDERAB LES Final Result [facility] [address] [place] [phone] documented in this encounter Visit Diagnoses Not on filedocumented in this encounter Care Teams Flat Surfacer Jewel Relationship Specialty Start Date End Date Carley Spann FNP [address] [place] [address] PCP - General Family Medicine 12/09/21 documented as of this encounter
--- OUTSIDE RECORDS SUMMARY | 2025-04-21 17:51 | XMS_ITS | Encounter Summary ---
Author Organization [employer] [facility] Address [address] [place] [address] [address] [place] [address] Care Team Providers Care Brass Molder Name Role Phone Carley Spann HECTOR Primary Care Provider [phone] Reason for Visit * Reason Onset Date Comments Appointment 08/14/2022 Encounter Details Date Type Department Care Team (Late st Contact Info) Description 08/14/2022 Telephone [facility] [address] [place] [address] Claire Lowe, DDS [address] [place] [address] Appointment Social History Tobacco Use Types Packs/Day [...] Description 05/23/2025 11:00 AM EST Office Visit [facility] OPTOMETRY [address] [place] [address] Ann-Marie Berg, OD [address] [place] [address] documented as of this encounter Visit Diagnoses Not on filedocumented in this encounter Care Teams Brass Molder Relationship Specialty Start Date End Date Carley Spann FNP [address] [place] [address] PCP - General Family Medicine 12/09/21 documented as of this encounter
--- OUTSIDE RECORDS SUMMARY | 2025-04-21 17:51 | XMS_ITS | Clinical Summary ---
Author Organization [employer] Address [address] [place] [address] [address] [place] [address] Care Team Providers Care Dipper And Drier Name Role Phone JenelleCarley gunn HECTOR Primary Care Provider [phone] Allergies Active Allergy Reactions Criticality Noted Date [...] Encounters Date Type Department Care Team Description 04/21/2025 Orders Only GENERIC EXTERNAL DATA DEPARTMENT Provider, Generic External Data 03/25/2025 Outside Procedure [facility] [address] [place] [address] Otis, Ann-Marie, OD Myopia of both eyes (Primary Dx) 03/04/2025 Population Health Risk Score [facility] (C3) Department [address] [phone] Provider, Population Health Generic 01/19/2025 Results Follow-Up [facility] [address] [place] [address] Name, MD Yahir Bacterial Vaginosis, Chlamydia/N. Gonorrhoeae RNA, TMA, Urogenitial from Last 3 Months Immunizations Immunization Administration [...] Description 05/23/2025 11:00 AM EST Office Visit [facility] [address] [place] [address] Otis, Ann-Marie, OD [address] [place] [address] Health Maintenance Due Date Last Done Comments [...] 02/08/2015, 02/03/20 14 HPV Vaccines Completed 02/09/2016, 0901/2015, 02/02/2014 Meningococcal Vaccine Completed 02/09/2016, 014 HIV [...] 1+ FETUSES Routine 04/21/2025 12:10 PM EST ABO GROUP AND RH TYPE Routine 04/21/2025 11:57 AM EST HCG, TOTAL, QN Routine 04/21/2025 11:57 AM EST LIPASE Routine 04/21/2025 11:57 AM EST COMPREHENSIVE METABOLIC PANEL Routine 04/21/2025 11:57 AM EST APTT Routine 04/21/2025 11:57 AM EST PROTHROMBIN TIME-INR Routine 04/21/2025 11:57 AM EST URINALYSIS WITH REFLEX MICROSCOPIC Routine 04/21/2025 11:57 AM EST CBC WITH AUTO DIFFERENTIAL Routine 04/21/2025 11:57 AM EST HEPATITIS C AB W/REFL TO HCV RNA, [...] Recently Relevant to Health Maintenance Results * US OB Limited 1+ Fetuses (04/21/2025 12:10 PM EST) Anatomical Region Laterality Modality Body Ultrasound 04/21/2025 12:1 0 PM EST Narrative 04/21/2025 1:20 PM EST [address] [address] Ultrasound Report Signed Patient: Perla Kowalski MR#: [id number] : 2000 Acct:[id number] Age/Sex: 24 / F ADM Date: 04/21/25 Loc: HO.ED Attending Dr: Ordering Physician: Evelio Veliz Date of Service: 04/21/25 Procedure(s): US OB limited Accession Number(s): [id number] cc: Evelio Veliz; [facility] Reason for Exam: Lower abdominal pain EXAMINATION: [...] by: Ricki Garcia MD 04/21/2025 01:17 PM [facility] Dictated By: Ricki Garcia MD Signed By: <Electronically signed by Ricki Garcia MD in OV> 04/21/25 1317 DD/ 1210 TD/TT: 04/21/25 1215 Home Care Attendant: Procedure Note Donotuseinterpreter, Image - 04/21/2025 [place] [id number] Ultrasound Report Signed Patient: Prela Kowalski LMR#: [id number] : 2000Acct:[id number] Age/Sex: 24 / FADM Date: 04/21/25 Loc: .ED Attending Dr: Ordering Physician: Evelio Veliz Date of Service: 04/21/25 Procedure(s): US OB limited Accession Number(s): [id number] cc: Evelio Veliz; [facility] Reason for Exam: Lower abdominal pain EXAMINATION: [...] Ricki Garcia MD 04/21/2025 01:17 PM EST RP Dictated By: Ricki Garcia MD Signed By: <Electronically signed by Ricki Garcia MD in OV> 04/21/25 1317 DD/ 1210 TD/TT: 04/21/25 1215 Home Care Attendant: us [facility] External Provider IMG OB US PROCEDURES Final Result * (ABNORMAL) CBC auto differential (04/21/2025 11:57 AM EST) White Blood Count 11.6(H) 4.8 - 10.8 X10*3/uL [facility] Red Blood Count 4.04(L) 4.20 - 5.50 X10*6/uL [facility] Hemoglobin 12.7 12.0 - 16.0 g/dl [facility] Hematocrit 37.2 37.0 - 47.0 % [facility] Mean Corpuscular Volume 92.1 80.0 - 98.0 fL [facility] Mean Corpuscular Hemoglobin 31.4 27.0 - 33.0 pg [facility] Mean Corpuscular HGB Conc 34.1 31.0 - 35.0 g/dl [facility] Red Cell Distribution Width 12.5 11.0 - 16.0 % [facility] Platelet Count 198 160 - 400 X10*3/uL [facility] Mean Platelet Volume 10.4 9.4 - 12.3 fL [facility] Neutrophils Percent Auto 77.9(H) 45 - 73 % [facility] Imm Gran Pct Auto 0.6(H) 0.0 - 0.4 % [facility] Lymphocytes Percent Auto 12.7(L) 20 - 40 % [facility] Monocytes Percent Auto 7.9 2 - 11 % [facility] Eosinophils Percent Auto 0.6 0 - 4 % [facility] Basophils Percent Auto 0.3 0 - 2 % [facility] NRBC Pct Auto 0.0 0.0 - 0.2 /100WBC [facility] Neutrophils Absolute Auto 9.0(H) 2.0 - 8.3 x10*3/uL [facility] Imm Gran Abs Auto 0.07(H) 0.00 - 0.03 X10*3/uL [facility] Lymphocytes Absolute Auto 1.5 1.2 - 4.9 X10*3/uL [facility] Monocytes Absolute Auto 0.9 0.1 - 1.2 X10*3/uL [facility] Eosinophils Absolute Auto 0.1 0.0 - 0.4 X10*3/uL [facility] Basophils Absolute Auto 0.0 0.0 - 0.2 X10*3/uL [facility] NRBC Abs Auto 0.000 0.0 - 0.012 X10*3/uL [facility] 04/21/2025 11:5 7 AM EST 04/21/2025 12:01 PM EST Generic External Data Provider LAB BLOOD ORDERAB LES Final Result Performing Organization Address [facility]/ZIP Co de Phone Number [facility] [address] [place] [address] [phone] * ABO Group And RH Type (04/21/2025 11:57 AM EST) Blood Type BP [facility] Comment:RH IMMUNE GLOBULIN I NDICATED: NO 04/21/2025 11:5 7 AM EST 04/21/2025 12:01 PM EST Generic External Data Provider LAB BLOOD BANK TE ST ORDERABLES Final Result Performing Organization Address [facility] Co de Phone Number [facility] [address] [place] [phone] * Urinalysis w/reflex microscopic (04/21/2025 11:57 AM EST) Color Urine Yellow [facility] Appearance Urine Clear [facility] PH 7.0 5.0 - 9.0 [facility] Glucose Urine UA Negative Negative mg/dL [facility] Urine Blood Negative Negative [facility] Specific [place] - Urine 1.020 1.005 - 1.025 [facility] Urine Protein Negative Neg-Trace mg/dL [facility] Urine Ketones Negative Negative mg/dL [facility] Nitrite Urine Negative Negative [facility] Leukocyte Esterase Urine Negative Negative [facility] 04/21/2025 11:5 7 AM EST 04/21/2025 12:01 PM EST Narrative [facility] - 04/21/2025 12:07 PM EST [id number], Clean Catch Generic External Data Provider LAB URINE ORDERAB LES Final Result Performing Organization Address [facility] Co de Phone Number [facility] [address] [place] [phone] * (ABNORMAL) Partial Thromboplastin Time, Activated (APTT) (04/21/2025 11:57 AM EST) Partial Thromboplastin Time 25.6(L) 26.7 - 34.1 SEC [facility] 04/21/2025 11:5 7 AM EST 04/21/2025 12:01 PM EST Generic External Data Provider LAB BLOOD ORDERAB LES Final Result Performing Organization Address [facility] Co de Phone Number [facility] [address] [place] [phone] * Prothrombin Time-INR (04/21/2025 11:57 AM EST) Prothrombin Time 11.5 11.2 - 13.5 SEC [facility] INTERNATIONAL NORM RATIO 0.9 0.9 - 1.1 [facility] Comment:INTERNATIONAL NORMAL IZED RATIO (INR) REFERENCE [...] ORDERAB LES Final Result Performing Organization Address City/[facility]/ZIP Co de Phone Number [facility] [address] [place] [phone] * hCG, Total, Quantitative (04/21/2025 11:57 AM EST) Pathologist [facility] HCG Quantitative 24,527 mIU/mL [facility] Comment:Weeks post LMP Appr oximate hCG(Last Menstrual Period) Range (mIU/ml)3 - 4 weeks 9 - 1304 - 5 weeks 75 - 2,6005 - 6 weeks 850 - 20,8006 - 7 weeks 4000 - 100,2007 - 12 weeks 11,500 - 289,24053 - 16 weeks 18,300 - 137,67048 - 29 weeks (2nd trimester) 1,400 - 53,67114 - 41 weeks (3rd trimester) 940 - [...] ORDERAB LES Final Result Performing Organization Address [facility]/ZIP Co de Phone Number [facility] [address] [place] [phone] * Lipase (04/21/2025 11:57 AM EST) Lipase 30 8 - 78 U/L [facility] 04/21/2025 11:5 7 AM EST 04/21/2025 12:01 PM EST us Generic External Data Provider LAB BLOOD ORDERAB LES Final Result [facility] [address] [place] [phone] [phone] * (ABNORMAL) Comprehensive Metabolic Panel (04/21/2025 11:57 AM EST) Sodium 136 135 - 145 mmol/L [facility] Potassium 3.8 3.3 - 5.1 mmol/L [facility] Chloride 108 96 - 108 mmol/L [facility] Carbon Dioxide 24 22 - 29 mmol/L [facility] Anion Gap 8(L) 12 - 20 [facility] Urea Nitrogen (BUN) 8(L) 9 - 16 mg/dL [facility] Creatinine, Serum 0.57 0.5 - 1.4 mg/dL [facility] Creatinine Clr Calc Pharmacy 146.7 [facility] Comment:Provided height and weight: 170.18 cm,69 kg.eGFR (calculated from the MDRD study equation) and eCrCl(calculated from the Cockcroft-Gault equation) are based ondifferent parameters and may not yield comparable results.If eCrCl result is absurd, please check patient'sheight/weight. Estimated Glomerular Filt Rate >60 [facility] Comment:Chronic Kidney Disea se: Estimated GFR < 60 mL/min/1.25p1Ranxou Kidney Disease: Estimated GFR < 15 mL/min/1.73m2 Glucose 73 60 - 115 mg/dL [facility] Calcium 8.5 8.4 - 10.2 mg/dL [facility] Bilirubin, Total 0.2 0.0 - 1.0 mg/dL [facility] Aspartate Amino Transferase 17 5 - 31 U/L [facility] Alanine Aminotransferase 8 0 - 31 U/L [facility] Total Protein 6.2(L) 6.5 - 8.0 g/dL [facility] Albumin Level 3.3(L) 3.5 - 5.0 g/dL [facility] Alkaline Phosphatase 68 39 - 117 U/L [facility] 04/21/2025 11:5 7 AM EST 04/21/2025 12:01 PM EST us Generic External Data Provider LAB BLOOD ORDERAB LES Final Result Performing Organization Address [facility]/ZIP Co de Phone Number [facility] [address] [place] [phone] * Hepatitis C Antibody with Reflex to HCV, RNA, Quantitative, Real-Time PCR (10/07/2024 11:07 AM EDT) Hepatitis C Antibody Nonreactive Nonreactive [facility] Comment:Antibodies to HCV no t detected; does not exclude early acuteHCV infection. Blood Venous blood specimen / Unknown 10/07/2024 11:07 AM EDT 10/07/2024 12:58 PM EDT us Eve Alexandre DO LAB BLOOD ORDERABLES Final R esult Performing Organization Address [facility] Co de Phone Number [facility] [address] [place] [phone] * HIV-1/2 Antigen and Antibodies, Fourth Generation, with Reflexes (10/07/2024 11:07 AM EDT) HIV AB/AG Nonreactive Nonreactive [facility] Comment:HIV-1 p24 Ag and/or HIV-1/HIV-2 Ab not detected.A test result that is nonreactive does not exclude thepossibility of exposure to or infection with HIV-1 and/orHIV-2. Nonreactive results in this assay for individualswith prior exposure to HIV-1 and/or HIV-2 may be due toantigen and antibody levels that are below the limit ofdetection of this assay.The [employer] HIV Ag/Ab Combo assay result andsupplemental assay results should be interpreted inconjunction with the patient's clinical presentation,history and other laboratory results. If the results areinconsistent with clinical evidence, additional testing issuggested to confirm the result. Blood Venous blood specimen / Unknown 10/07/2024 11:07 AM EDT 10/07/2024 12:58 PM EDT Eve Alexandre DO LAB BLOOD ORDERABLES Final R esult [facility] [address] [place] [phone] from Last 3 Months or Most Recently Relevant to Health Maintenance [place] [address] [place] [address] [facility] AD[facility] DENTAL - HSN PARTIAL (MEDICAID) Care Teams Dipper And Drier Relationship Specialty Start Date End Date Carley Spann FNP [address] [place] [address] PCP - General Family Medicine 12/09/21
--- OUTSIDE RECORDS SUMMARY | 2025-04-21 17:51 | XMS_ITS | Clinical Summary ---
Author Organization [facility] Address [address] [address] Phone Care Team Providers Care Legal Administrative Assistant Name Role Phone Pcp, Unknown Primary [...] 01/08/2012 INFLUENZA VACCINE (#1) 2024 COVID-19 VACCINE (2024-2 6 season) 2025 HEPATITIS A VACCINES Aged Out No long er eligible based on patient's age to complete this topic HIB VACCINES Aged Out No longer eligi ble based on patient's age to complete this topic IPV VACCINES Aged Out No longer eligi ble [...] topic Medical Devices Not on file Insurance [facility] C3 ACO C3 ACO C3 ACO C3 ACO C3 ACO Care Teams Legal Administrative Assistant Relationship Specialty Start Date End Date Pcp, Unknown PCP - General 05/08/23 Additional Source Comments The information contained in this document represents components of the legal health record. It is not the complete legal health record.[facility]
== END 2025-04-21 14:50 | disposition home or self-care (01) ==
PROVIDERS: Physician Assistant; Emergency Provider Emergency Medicine
DX: O26.899 Other specified pregnancy related conditions, unspecified trimester (principal); R10.30 Lower abdominal pain, unspecified; R11.2 Nausea with vomiting, unspecified
CPT/HCPCS: 36415; 76815; 80053; 81003; 83690; 84702; 85025; 85610; 85730; 86900; 86901; 99284

== ENCOUNTER → 2025-04-21 11:20 | Outpatient (BNV) | payer MEDICAID, SELFPAY | PROVIDERS: Visit Provider Radiology Diagnostic Radiology | DX: O26.891 Other specified pregnancy related conditions, first trimester (principal); R10.30 Lower abdominal pain, unspecified; Z3A.00 Weeks of gestation of pregnancy not specified | CPT/HCPCS: 76815 ==

== ENCOUNTER 2025-05-13 04:15 | Emergency (ER) | payer MEDICAID, SELFPAY ==
[2025-05-13 04:21] VITALS: BP 115/55; PULSE 73; RESP 20; TEMP 36.2; O2SAT 98; BMI 23.5
--- OUTSIDE RECORDS SUMMARY | 2025-05-13 04:39 | XMS_ITS | Clinical Summary ---
Author Organization [facility] Address [address] [address] Phone Care Team Providers Care Bakery Machine Mechanic Name Role Phone Pcp, Unknown Primary Care [...] topic Medical Devices Not on file Insurance [facility] C3 ACO C3 ACO C3 ACO [place] [id number] [place] [id number] [place] [id number] Care Teams Bakery Machine Mechanic Relationship Specialty Start Date End Date Pcp, Unknown PCP - General 05/08/23 Additional Source Comments The information contained in this document represents components of the legal health record. It is not the complete legal health record.[facility]
--- NOTE | 2025-05-13 04:59 | ED.ABDPAIN ---
HPI - Abdominal Pain General Chief Complaint: Abdominal Pain Stated Complaint: Stomach Pain Time Seen by Provider: 05/13/25 04:35 Source: patient Mode of arrival: ambulatory Limitations: no limitations History of Present Illness ED Provider: Dr. Kymberly Davis HPI narrative: Patient is a at 22 weeks of gestational age. Patient states that throughout the last month of her , she has been having intermittent abdominal discomfort. Patient states that she has a roof with lots of nausea and vomiting. However, patient states that she has not medications available for the nausea but she does not feel comfortable taking them. The patient gets care at [facility]. Patient came here, did not notify her OBGYN at [facility]. Patient was seen here 3 weeks ago for the same complaint. Patient denies any vaginal bleeding or spotting. Related Data Previous Rx's ?Medication ?Instructions ?Recorded omeprazole magnesium 20 mg 20 mg PO DAILY #30 tabs 05/05/20 tablet,delayed release (Prilosec OTC) ondansetron 4 mg disintegrating 4 mg PO Q6-8H PRN nausea and 05/05/20 tablet vomiting #7 tabs omeprazole 20 mg capsule,delayed 20 mg PO DAILY #30 caps 08/01/21 release omeprazole 10 mg capsule,delayed 10 mg PO DAILY #14 caps 11/19/21 release ondansetron 4 mg disintegrating 4 mg PO ONCE PRN nausea and 11/19/21 tablet vomiting #10 tabs cyclobenzaprine 5 mg tablet 5 mg PO TID PRN muscle spasm #10 12/02/22 tabs ibuprofen 600 mg tablet 600 mg PO Q6H PRN pain #30 tabs 12/02/22 levofloxacin 500 mg tablet 500 mg PO DAILY #9 tabs 01/06/23 ondansetron HCl 4 mg tablet 4 mg PO Q6H PRN nausea and 01/06/23 vomiting #10 tabs cephalexin 500 mg capsule 500 mg PO Q6H 7 days #28 caps 02/03/25 ondansetron 4 mg disintegrating 4 mg PO Q8H 3 days #9 tabs 02/03/25 tablet pyridoxine (vitamin B6) 10 mg 10 mg PO DAILY #14 tabs 02/03/25 tablet metoclopramide HCl 5 mg tablet 5 mg PO Q8H PRN nausea and 05/13/25 (Reglan) vomiting #14 tabs Allergies Allergy/AdvReac Type Severity Reaction Status Date / Time Penicillins (PENICILLINS) Allergy Unknown UNKNOWN Verified 05/13/25 04:25 Review of Systems Review of Systems Constitutional : No Weight loss, No Fever, No Chills, No Night Sweats, No Fatigue, No Malaise ENT/Mouth : No Hearing loss, No Ear Pain, No Nasal Congestion, No Sinus Pain, No Hoarseness, No sore throat, No Rhinorrhea, No Swallowing Difficulty Eyes: No Eye Pain, No Swelling, No Redness, No Foreign Body, No Discharge, No Vision Changes Cardiovascular : No Chest Pain, No SOB, No Dyspnea on Exertion, No Orthopnea, No Edema, No Palpitations Respiratory : No Cough, No Sputum, No Wheezing, No Smoke Exposure, No Dyspnea Gastrointestinal : Complaining of nausea and vomiting throughout the , complaining of intermittent abdominal pain for several weeks Genitourinary : no irregular bleeding, No Dysuria, No Urinary Frequency, No Hematuria, No Urinary Incontinence, No Urgency, No Flank Pain, No Urinary Flow Changes, No Hesitancy Musculoskeletal : No joint pain, No Myalgias, No Joint Swelling Skin : No Skin Lesions, No rash Neuro : No Weakness, No Numbness, No Paresthesias, No Loss of Consciousness, No Dizziness, No Headache Psych : No Anxiety/Panic, No Depression, No SI/HI/AH/VH, No Social Issues, Heme/Lymph: No Bruising, No Bleeding,No Lymphadenopathy Endocrine : No Polyuria, No Polydipsia, No Temperature Intolerance [facility] Past Medical History Medical History No known health problems Social History Social History Alcohol intake: never Smoked in Last 30 Days: No Use of substances other than those prescribed or required for medical reasons: No Advance Directives: No Advance Directives Information Provided: Yes Physical Exam ED Exam Exam: Appearance: Alert. Oriented X3. No acute distress. Eyes: Pupils equal, round and reactive to light. ENT: Pharynx normal. Neck: Normal inspection. Neck supple. No lymph nodes noted. No crepitus CVS: Normal heart rate and rhythm. Pulses normal. Normal S1 and S2 Respiratory: No respiratory distress. Breath sounds normal. No Wheezing. No rales Abdomen: Soft and nontender. Gravid uterus. Bedside ultrasound shows good movement, heart rate in the 140s Skin: Skin warm and dry. Normal skin color. Normal skin turgor. Patient has multiple hickies throughout the front of the neck, does not seem to have any other bruising Extremities: No lower extremity edema. No Lacerations. No Rash Neuro: Oriented X 3. No motor deficit. No sensory deficit. Moving all extremities. No slurred speech. CN 2 through 12 grossly intact Psych: calm, cooperative, normal affect Vital Signs: Vital Signs - 24 hr 05/13/25 04:21 05/13/25 05:59 05/13/25 07:12 Temperature 97.1 F 97.8 F 97.7 F Pulse Rate 73 65 66 Respiratory Rate 20 16 12 Blood Pressure 115/55 L 104/67 104/57 L Pulse Oximetry 98 100 100 Oxygen Delivery Method Room Air Room Air Room Air BMI result Body Mass Index 23.5 Course Course Course Narrative: Patient very anxious. Patient getting IV fluids, IV nausea medication,, a small dose of diazepam. Her pain control, patient was given a dose of Ofirmev Medical Decision Making Medical Decision Making [facility] Narrative: My interpretation of labs: Patient's white blood cell count is 10.9, likely secondary to . No significant abnormality in patient's chemistry, normal LFTs, beta hCG 23,355 Patient states that she feels much better, has no abdominal pain, denies any nausea or vomiting. I asked the patient to eat and drink something used to make sure that she can tolerate p.o.. Patient states that she does not want to eat or drink anything now, she is not nauseous but she has wants to go home. Patient instructed to follow-up with the primary care physician. Differential Diagnosis Differential Diagnoses: The differential diagnosis associated with the presentation includes (Hyperemesis gravidarum, foul GI, anxiety) Admission/Observation Consideration of admission/observation: Escalation of care including admission/observation considered (Given patient's gestational age, repeats in times and presentation, observation/transfer was considered. However, patient states that she feels well and at baseline and she is requesting to be discharged home) Lab Data [facility] Lab Attestation statement: I reviewed the patient's lab results. 05/13/25 05:05 05/13/25 05:05 Labs: Lab Results 05/13/25 05/13/25 Range/Units 05:05 05:09 WBC 10.9 H (4.8-10.8) X10*3/uL RBC 4.05 L (4.20-5.50) X10*6/uL Hgb 12.7 (12.0-16.0) g/dl Hct 36.7 L (37.0-47.0) % MCV 90.6 (80.0-98.0) fL MCH 31.4 (27.0-33.0) pg MCHC 34.6 (31.0-35.0) g/dl RDW 12.0 (11.0-16.0) % Plt Count 184 (160-400) X10*3/uL MPV 10.7 (9.4-12.3) fL Immature Gran % (Auto) 0.9 H (0.0-0.4) % Neut % (Auto) 69.8 (45-73) % Lymph % (Auto) 17.6 L (20-40) % [place] % (Auto) 9.8 (2-11) % Eos % (Auto) 1.6 (0-4) % Baso % (Auto) 0.3 (0-2) % Lymph # (Auto) 1.9 (1.2-4.9) X10*3/uL [place] # (Auto) 1.1 (0.1-1.2) X10*3/uL Eos # (Auto) 0.2 (0.0-0.4) X10*3/uL Baso # (Auto) 0.0 (0.0-0.2) X10*3/uL Abs Immat Gran (auto) 0.10 H (0.00-0.03) X10*3/uL Absolute Neuts (auto) 7.6 (2.0-8.3) x10*3/uL Absolute Nucleated RBC 0.000 (0.0-0.012) X10*3/uL Nucleated RBC % (auto) 0.0 (0.0-0.2) /100WBC Sodium 136 (135-145) mmol/L Potassium 3.7 (3.3-5.1) mmol/L Chloride 106 (96-108) mmol/L Carbon Dioxide 22 (22-29) mmol/L Anion Gap 12 (12-20) BUN 11 (9-16) mg/dL Creatinine 0.48 L (0.5-1.4) mg/dL Estim Creat Clear Calc 174.2 Estimated GFR > 60 Random Glucose 78 (60-115) mg/dL Calcium 8.4 (8.4-10.2) mg/dL Total Bilirubin 0.2 (0.0-1.0) mg/dL Direct Bilirubin < 0.2 (0.0-0.5) mg/dL AST 21 (5-31) U/L ALT 8 (0-31) U/L Alkaline Phosphatase 64 (39-117) U/L Total Protein 5.9 L (6.5-8.0) g/dL Albumin 3.1 L (3.5-5.0) g/dL Lipase 35 (8-78) U/L Beta HCG, Quant 97777 mIU/mL Urine Color Yellow Urine Appearance Clear Urine pH 6.0 (5.0-9.0) Ur Specific [place] 1.020 (1.005-1.025) Urine Protein Negative (Neg-Trace) mg/dL Urine Glucose (UA) Negative (Negative) mg/dL Urine Ketones Negative (Negative) mg/dL Urine Blood Negative (Negative) Urine Nitrite Negative (Negative) Ur Leukocyte Esterase Negative (Negative) Urine Opiates Screen Not Detected (Not Detect) Ur Buprenorphine Scrn Not Detected (Not Detect) ng/mL Ur Oxycodone Screen Not Detected (Not Detect) ng/mL Urine Methadone Screen Not Detected (Not Detect) ng/mL Urine Fentanyl Screen Not Detected (Not Detect) Ur Barbiturates Screen Not Detected (Not Detect) Ur Phencyclidine Scrn Not Detected (Not Detect) Ur Amphetamines Screen Not Detected (Not Detect) U Benzodiazepines Scrn Not Detected (Not Detect) Urine Cocaine Screen Not Detected (Not Detect) U Marijuana (THC) Screen Not Detected (Not Detect) Medications Administered Discontinued Medications Generic Name Dose Route Start Last Admin Trade Name Freq PRN Reason Stop Dose Admin Diazepam 2.5 mg 05/13/25 04:42 05/13/25 05:11 Diazepam 10 Mg/2 Ml Cartridge IVPUSH 05/13/25 04:43 Not Given STAT STA Acetaminophen 1,000 mg in 100 mls @ 400 mls/hr 05/13/25 04:42 05/13/25 07:15 Ofirmev IV 05/13/25 04:56 Infused ONCE ONE Infusion Sodium Chloride 2,000 mls @ 999 mls/hr 05/13/25 04:44 05/13/25 07:15 Ns IVCONT 05/13/25 06:44 Infused .Q2H1M ONE Infusion Metoclopramide HCl 10 mg 05/13/25 04:44 05/13/25 05:11 Metoclopramide Hcl 10 Mg/2 Ml Vial IVPUSH 05/13/25 04:45 10 mg ONCE ONE Administration Discharge Plan Discharge Clinical Impression: Abdominal pain, Nausea & vomiting Patient Disposition: Home, Self-Care Instructions: Acute Nausea and Vomiting (ED), Abdominal Pain (ED) Additional Instructions: Please follow-up with your primary care physician tomorrow. If you have any worsening or new symptoms, please return to the emergency room or call 911 Prescriptions: New metoclopramide HCl [Reglan] 5 mg tablet 5 mg PO Q8H PRN (Reason: nausea and vomiting) Qty: 14 0RF No Action omeprazole magnesium [Prilosec OTC] 20 mg tablet,delayed release (DR/EC) 20 mg PO DAILY Qty: 30 0RF ondansetron 4 mg tablet,disintegrating 4 mg PO Q6-8H PRN (Reason: nausea and vomiting) Qty: 7 0RF omeprazole 20 mg capsule,delayed release(DR/EC) 20 mg PO DAILY Qty: 30 0RF omeprazole 10 mg capsule,delayed release(DR/EC) 10 mg PO DAILY Qty: 14 0RF ondansetron 4 mg tablet,disintegrating 4 mg PO ONCE PRN (Reason: nausea and vomiting) Qty: 10 0RF ibuprofen 600 mg tablet 600 mg PO Q6H PRN (Reason: pain) Qty: 30 0RF cyclobenzaprine 5 mg tablet 5 mg PO TID PRN (Reason: muscle spasm) Qty: 10 0RF ondansetron 4 mg tablet,disintegrating 4 mg PO Q8H 3 Days Qty: 9 0RF pyridoxine (vitamin B6) 10 mg tablet 10 mg PO DAILY Qty: 14 0RF cephalexin 500 mg capsule 500 mg PO Q6H 7 Days Qty: 28 0RF levofloxacin 500 mg tablet 500 mg PO DAILY Qty: 9 0RF ondansetron HCl 4 mg tablet 4 mg PO Q6H PRN (Reason: nausea and vomiting) Qty: 10 0RF Stand Alone Forms: Work/School Release Print Language: Swedish
[2025-05-13 05:09] LABS: MANUAL DIFF FLAG NO
[2025-05-13 05:10] LABS: Hematocrit 36.7 % (37.0-47.0); Hemoglobin 12.7 g/dl (12.0-16.0); Imm Gran Abs Auto 0.10 X10*3/uL (0.00-0.03); Imm Gran Pct Auto 0.9 % (0.0-0.4); Lymphocytes Absolute Auto 1.9 X10*3/uL (1.2-4.9); Mean Corpuscular HGB Conc 34.6 g/dl (31.0-35.0); Mean Corpuscular Hemoglobin 31.4 pg (27.0-33.0); Mean Corpuscular Volume 90.6 fL (80.0-98.0); NRBC Abs Auto 0.000 X10*3/uL (0.0-0.012); NRBC Pct Auto 0.0 /100WBC (0.0-0.2); Platelet Count 184 X10*3/uL (160-400); Red Blood Count 4.05 X10*6/uL (4.20-5.50); White Blood Count 10.9 X10*3/uL (4.8-10.8)
[2025-05-13 05:16] LABS: Appearance Urine Clear; Glucose Urine UA Negative (Negative); PH 6.0 (5.0-9.0); Specific Gravity - Urine 1.020 (1.005-1.025)
[2025-05-13 05:26] LABS: Alanine Aminotransferase 8 U/L (0-31); Albumin Level 3.1 g/dL (3.5-5.0); Alkaline Phosphatase 64 U/L (39-117); Anion Gap 12 (12-20); Aspartate Amino Transferase 21 U/L (5-31); Blood Urea Nitrogen 11 mg/dL (9-16); Calcium 8.4 mg/dL (8.4-10.2); Carbon Dioxide 22 mmol/L (22-29); Chloride 106 mmol/L (96-108); Creatinine Clr Calc Pharmacy 174.2; Estimated Glomerular Filt Rate > 60; Lipase 35 U/L (8-78); Potassium 3.7 mmol/L (3.3-5.1); Sodium 136 mmol/L (135-145); Total Protein 5.9 g/dL (6.5-8.0)
[2025-05-13 05:27] LABS: Cannabinoid Screen Urine Not Detected (Not Detect)
[2025-05-13 05:59] VITALS: BP 104/67; PULSE 65; RESP 16; TEMP 36.6; O2SAT 100
[2025-05-13 07:12] VITALS: BP 104/57; PULSE 66; RESP 12; TEMP 36.5; O2SAT 100
[2025-05-13 07:50] VITALS: BP 104/57; PULSE 66; RESP 12; TEMP 36.5; O2SAT 100
== END 2025-05-13 08:08 | disposition home or self-care (01) ==
PROVIDERS: Emergency Provider Emergency Medicine
DX: O26.892 Other specified pregnancy related conditions, second trimester (principal); R10.9 Unspecified abdominal pain; O21.2 Late vomiting of pregnancy; Z3A.22 22 weeks gestation of pregnancy; Z79.899 Other long term (current) drug therapy
CPT/HCPCS: 36415; 80048; 80076; 80307; 81003; 83690; 84702; 85025; 96361; 96365; 96375; 99284; 99285; J0131; J2765